=== PATIENT | male | born 1955 | race Caucasian/White ===

== ENCOUNTER 2020-11-21 10:39 | Outpatient (REF) | payer OTHER, SELFPAY ==
[2020-11-21 12:53] LABS: Alanine Aminotransferase 19 U/L (0-40); Albumin Level 3.8 g/dL (3.5-5.0); Alkaline Phosphatase 57 U/L (39-117); Aspartate Amino Transferase 17 U/L (5-37); Bilirubin Direct 0.3 mg/dL (0.0-0.5); Bilirubin Total 0.7 mg/dL (0.0-1.0); Cholesterol 184 mg/dL; Glucose Fasting 96 mg/dL (60-99); HDL Cholesterol 79 mg/dL; LDL Cholesterol Calculated 71 mg/dl; Total Protein 6.7 g/dL (6.5-8.0); Triglycerides 170 mg/dL
[2020-11-21 13:01] LABS: Reflex LDLD? No
[2020-11-21 13:25] LABS: Estimated Average Glucose 100 mg/dL; Hemoglobin A1c % 5.1 %
== END 2020-11-21 10:40 | disposition home or self-care (01) ==
LOC: HO.LNP 10:39
PROVIDERS: Visit Provider Internal Medicine
DX: R73.03 Prediabetes (principal); E78.00 Pure hypercholesterolemia, unspecified
CPT/HCPCS: 80061; 80076; 82947; 83036

== ENCOUNTER 2021-05-21 10:25 | Outpatient (REF) | payer OTHER, SELFPAY ==
[2021-05-21 10:29] LABS: MANUAL DIFF FLAG NO
[2021-05-21 10:56] LABS: Basophils Percent Auto 0.7 % (0-2); Eosinophils Absolute Auto 0.1 X10*3/uL (0.0-0.4); Hematocrit 41.5 % (42-52); Hemoglobin 13.8 g/dl (14.0-18.0); Imm Gran Abs Auto 0.02 X10*3/uL (0.00-0.03); Imm Gran Pct Auto 0.3 % (0.0-0.4); Lymphocytes Absolute Auto 2.3 X10*3/uL (1.2-4.9); Lymphocytes Percent Auto 39.3 % (20-40); Mean Corpuscular HGB Conc 33.3 g/dl (31.0-36.0); Mean Corpuscular Hemoglobin 32.3 pg (27.0-33.0); Mean Corpuscular Volume 97.2 fL (80-98); Mean Platelet Volume 10.3 fL (9.4-12.4); Monocytes Absolute Auto 0.6 X10*3/uL (0.1-1.2); Monocytes Percent Auto 10.8 % (2-11); Neutrophils Absolute Auto 2.8 X10*3/uL (2.0-8.3); Neutrophils Percent Auto 46.9 % (45-73); Platelet Count 197 X10*3/uL (160-400); Red Blood Count 4.27 X10*6/uL (4.60-5.80); Red Cell Distribution Width 12.9 % (11.0-16.0); White Blood Count 5.9 X10*3/uL (4.8-10.8)
[2021-05-21 10:57] LABS: Estimated Average Glucose 94 mg/dL; Hemoglobin A1c % 4.9 %
[2021-05-21 11:04] LABS: Glucose Urine UA NEG (NEG); Leukocyte Esterase Urine NEG (NEG); Nitrite Urine NEG (NEG); PH 5.5 (5.0-8.0); Specific Gravity - Urine 1.025 (1.005-1.025); Urine Blood NEG (NEG); Urine Ketones NEG (NEG); Urine Protein NEG (NEG-TRACE)
[2021-05-21 11:12] LABS: Appearance Urine CLEAR; Color Urine YELLOW
[2021-05-21 11:23] LABS: Alanine Aminotransferase 18 U/L (0-40); Albumin Level 3.7 g/dL (3.5-5.0); Alkaline Phosphatase 58 U/L (39-117); Anion Gap 14 (12-20); Aspartate Amino Transferase 16 U/L (5-37); Bilirubin Total 1.4 mg/dL (0.0-1.0); Blood Urea Nitrogen 19 mg/dL (9-16); Calcium 8.5 mg/dL (8.4-10.2); Carbon Dioxide 25 mmol/L (22-29); Chloride 106 mmol/L (96-108); Cholesterol 184 mg/dL; Estimated Glomerular Filt Rate > 60; Glucose Fasting 103 mg/dL (60-99); HDL Cholesterol 89 mg/dL; LDL Cholesterol Calculated 81 mg/dl; Potassium 4.3 mmol/L (3.3-5.1); Sodium 141 mmol/L (135-145); Total Protein 6.5 g/dL (6.5-8.0); Triglycerides 72 mg/dL
[2021-05-21 11:28] LABS: PSA,Total (Free>4and<10) 1.71 ng/mL (0.00-4.00)
[2021-05-21 11:32] LABS: Reflex LDLD? No
[2021-05-21 12:08] LABS: Creatinine Urine 139.21 mg/dL; Microalbum/Creatinine Ratio Ur 6.4 ug/mg cr
== END 2021-05-21 10:26 | disposition home or self-care (01) ==
LOC: HO.LNP 10:25
PROVIDERS: Visit Provider Internal Medicine
DX: Z00.00 Encounter for general adult medical examination without abnormal findings (principal); Z12.5 Encounter for screening for malignant neoplasm of prostate; I10 Essential (primary) hypertension; E78.00 Pure hypercholesterolemia, unspecified; D72.820 Lymphocytosis (symptomatic); R73.03 Prediabetes
CPT/HCPCS: 80053; 80061; 81003; 82043; 83036; 84153; 85025

== ENCOUNTER 2021-11-16 11:34 | Outpatient (REF) | payer OTHER, SELFPAY ==
[2021-11-16 12:31] LABS: Estimated Average Glucose 100 mg/dL; Hemoglobin A1c % 5.1 %
[2021-11-16 12:46] LABS: Alanine Aminotransferase 19 U/L (0-40); Albumin Level 3.7 g/dL (3.5-5.0); Alkaline Phosphatase 57 U/L (39-117); Aspartate Amino Transferase 18 U/L (5-37); Bilirubin Direct 0.3 mg/dL (0.0-0.5); Bilirubin Total 0.6 mg/dL (0.0-1.0); Cholesterol 188 mg/dL; Glucose Fasting 96 mg/dL (60-99); HDL Cholesterol 84 mg/dL; LDL Cholesterol Calculated 86 mg/dl; Total Protein 6.6 g/dL (6.5-8.0); Triglycerides 90 mg/dL
[2021-11-16 12:57] LABS: Reflex LDLD? No
== END 2021-11-16 11:35 | disposition home or self-care (01) ==
LOC: HO.LNP 11:34
PROVIDERS: Visit Provider Internal Medicine
DX: R73.03 Prediabetes (principal); E78.00 Pure hypercholesterolemia, unspecified
CPT/HCPCS: 80061; 80076; 82947; 83036

== ENCOUNTER 2022-03-20 09:28 | Day surgery (SDC) | payer OTHER, SELFPAY ==
[2022-03-13 15:30] VITALS: BMI 32.3
--- NOTE | 2022-03-19 10:57 | P.CONAN_ITS ---
Documented by User: Anju Nelson NP 03/19/22 10:58 HPI - Anesthesia Eval Consult details Narrative: 66yo M for Colonoscopy [facility] Past Medical History Medical History HLD (hyperlipidemia) HTN (hypertension) Social History Social History Patient Tobacco Use Status: Never used Tobacco Use of substances other than those prescribed or required for medical reasons: No Are you DNR?: No Advance Directives: No Advance Directives Information Provided: Yes Recently lost weight without trying: No Meds Allergies Allergy/AdvReac Type Severity Reaction Status Date / Time No Known Allergies Allergy Unverified 03/17/22 18:53 Home Medications Medication Instructions Recorded Confirmed Last Taken Type atorvastatin 40 mg tablet 1 tab PO DAILY 03/13/22 03/13/22 03/20/22 History valsartan 320 1 tab PO DAILY 03/13/22 03/13/22 03/20/22 History mg-hydrochlorothiazide 25 mg tablet Exam Exam Date and Time: March 19, 2022 1057 Height,Weight and Vital Signs: Height 5 ft 8 in Weight 96.615 kg Assessment and Plan Assessment Anesthesia Assessment: Chart Reviewed Documented by User: Melonie Martinez MD 03/20/22 11:29 [facility] Past Medical History Medical History HLD (hyperlipidemia) HTN (hypertension) Functional capacity: independent ambulation Family History Family history of problems with anesthesia: No Surgical History History of Problems with Anesthesia: No Social History Social History Patient Tobacco Use Status: Never used Tobacco Use of substances other than those prescribed or required for medical reasons: No Are you DNR?: No Advance Directives: No Advance Directives Information Provided: Yes Recently lost weight without trying: No Meds Allergies Allergy/AdvReac Type Severity Reaction Status Date / Time No Known Allergies Allergy Unverified 03/17/22 18:53 Home Medications Medication Instructions Recorded Confirmed Last Taken Type atorvastatin 40 mg tablet 1 tab PO DAILY 03/13/22 03/13/22 03/20/22 History valsartan 320 1 tab PO DAILY 03/13/22 03/13/22 03/20/22 History mg-hydrochlorothiazide 25 mg tablet Exam Airway Mallampati Class: II TM Dist: >3cm Neck ROM: Full Heart: RRR Lungs: CTA Assessment and Plan Final Anesthetic Review Family History of Problems with Anesthesia: No History of Problems with Anesthesia: No ASA Class: II Final Preanesthetic Review: No Changes in Pt Med Stat, Meds/Allgs Chart Reviewed, Consent Obtained/Reviewed and Anes Risks/Benef Reviewed Patient Risk: Low Procedure Risk: Low Anesthetic Plan Anesthetic Plan: MAC: Disposition: Standard PACU
[2022-03-20 09:36] VITALS: BMI 28.7
[2022-03-20 09:44] VITALS: BP 128/74; PULSE 65; RESP 16; TEMP 36.5; O2SAT 98
[2022-03-20] MEDS: Lactated Ringers 1,000 ML 100 ML IVCONT (09:54)
[2022-03-20 11:09] VITALS: BP 102/69; PULSE 61; RESP 16; TEMP 36.2; O2SAT 98
--- NOTE | 2022-03-20 11:09 | PM.OP ---
Brief Operative Note Date of Service: 03/20/22 Pre-op diagnosis: Screening Post-op diagnosis: other (Polyp) Procedure: Colonoscopy to the cecum and TI with cold snare polypectomy Surgeon: Jamie Shre Anesthesia: MAC Was an Survey And Mapping Technician used for this Procedure?: No Estimated blood loss (mL): 2.0 Pathology: other (A. Transverse colon polyp) Condition: stable Disposition: PACU
[2022-03-20 11:24] VITALS: BP 104/56; PULSE 55; RESP 16; TEMP 36.2; O2SAT 99
--- NOTE | 2022-03-20 11:30 | HO.POSTANES ---
Post Anesthesia Evaluation Post Anesthesia Evaluation Vital Signs: Vital Signs Temp Pulse Resp BP Pulse Ox O2 Del Method 03/20/22 11:24 97.1 F 55 16 104/56 L 99 Room Air 03/20/22 11:09 97.1 F 61 16 102/69 98 Room Air 03/20/22 09:44 97.7 F 65 16 128/74 98 Room Air Anesthesia: Monitored Mental Status: Awake Pain Control: Satisfactory Nausea/Vomiting: None Hydration: Adequate Anesthesia-Related Issues: No Anes. Related Issues
--- NOTE | 2022-03-20 11:33 | OP_ITS ---
SURGEON: Jamie Sher MD INDICATIONS: The patient presents for followup of colorectal cancer screening and personal history of tubular adenoma of the colon. Full consent has been obtained from him for this, including risks of bleeding and perforation. PREOPERATIVE DIAGNOSIS: POSTOPERATIVE DIAGNOSIS: PROCEDURE PERFORMED: Colonoscopy to the cecum and terminal ileum with cold snare polypectomy. ESTIMATED BLOOD LOSS: COMPLICATIONS: ANESTHESIA: Monitored anesthesia care. ASSISTANTS: SPECIMENS: PREOPERATIVE DIAGNOSES: Colorectal cancer screening and personal history of tubular adenoma of the colon. POSTOPERATIVE DIAGNOSES: Colorectal cancer screening and personal history of tubular adenoma of the colon, small colon polyp, diverticulosis and internal hemorrhoids. DESCRIPTION OF PROCEDURE: The patient was placed in the left lateral decubitus position. The digital rectal exam revealed no abnormalities. The Olympus video pediatric colonoscope was entered into the rectum and advanced easily to the cecum. Once in the cecum, I did identify normal-appearing cecal pouch with appendiceal orifice and a normal-appearing ileocecal valve. The terminal ileum was cannulated and appeared normal. The scope was withdrawn back in the colon. The entire cecum and ileocecal valve appeared normal. The scope was then slowly withdrawn assessing all mucosal surfaces carefully. Preparation was excellent. In the transverse colon was an approximately 6 mm polyp, which was removed by cold snare polypectomy and recovered by suction. The polypectomy site appeared clean, without any sign of residual polyp nor bleeding. I did not visualize any other polyps, colitis, nor angiodysplasia. There was a mild amount of sigmoid diverticulosis. In the rectum, scope was retroflexed visualizing small internal hemorrhoids, but no other pathology. The rectal mucosa appeared normal. Scope was straightened and withdrawn from the patient. He tolerated the procedure well and was returned to recovery area in stable condition. IMPRESSION: 1. Small colon polyp. 2. Diverticulosis. 3. Internal hemorrhoids. PLAN: The results of the pathology will be checked. I would recommend a repeat colonoscopy in 5 years. He will otherwise see me on a p.r.n. basis. MD YAKELIN Anne/NAT / [phone]
== END 2022-03-20 11:50 | disposition home or self-care (01) ==
PROVIDERS: PCP Internal Medicine; Visit Provider Internal Medicine
PROC: 0DJD8ZZ Inspection of Lower Intestinal Tract, Via Natural or Artificial Opening Endoscopic (ICD-10-PCS; CPT 45378; principal; 2022-03-20 10:30)
DX: Z12.11 Encounter for screening for malignant neoplasm of colon (principal); Z86.010 Personal history of colon polyps; D12.3 Benign neoplasm of transverse colon; K57.30 Diverticulosis of large intestine without perforation or abscess without bleeding; K64.8 Other hemorrhoids; I10 Essential (primary) hypertension; E78.5 Hyperlipidemia, unspecified; Z79.899 Other long term (current) drug therapy
CPT/HCPCS: 45385; 88305

== ENCOUNTER 2022-06-28 11:07 | Outpatient (REF) | payer BC, SELFPAY ==
[2022-06-28 11:12] LABS: MANUAL DIFF FLAG NO
[2022-06-28 11:55] LABS: Basophils Percent Auto 0.6 % (0-2); Eosinophils Absolute Auto 0.1 X10*3/uL (0.0-0.4); Eosinophils Percent Auto 1.7 % (0-4); Hematocrit 41.6 % (42.0-52.0); Hemoglobin 13.7 g/dl (14.0-18.0); Imm Gran Abs Auto 0.02 X10*3/uL (0.00-0.03); Imm Gran Pct Auto 0.4 % (0.0-0.4); Lymphocytes Absolute Auto 2.4 X10*3/uL (1.2-4.9); Lymphocytes Percent Auto 45.3 % (20-40); Mean Corpuscular HGB Conc 32.9 g/dl (31.0-36.0); Mean Corpuscular Hemoglobin 32.7 pg (27.0-33.0); Mean Corpuscular Volume 99.3 fL (80.0-98.0); Mean Platelet Volume 10.2 fL (9.4-12.4); Monocytes Absolute Auto 0.6 X10*3/uL (0.1-1.2); Monocytes Percent Auto 10.9 % (2-11); Neutrophils Absolute Auto 2.2 x10*3/uL (2.0-8.3); Neutrophils Percent Auto 41.1 % (45-73); Platelet Count 217 X10*3/uL (160-400); Red Blood Count 4.19 X10*6/uL (4.60-5.80); Red Cell Distribution Width 12.9 % (11.0-16.0); White Blood Count 5.4 X10*3/uL (4.8-10.8)
[2022-06-28 12:15] LABS: Appearance Urine Clear; Color Urine Yellow; Glucose Urine UA Negative (Negative); Leukocyte Esterase Urine Negative (Negative); Nitrite Urine Negative (Negative); Urine Blood Negative (Negative); Urine Ketones Negative (Negative); Urine Protein Negative (Neg-Trace)
[2022-06-28 12:17] LABS: Alanine Aminotransferase 23 U/L (0-40); Albumin Level 3.6 g/dL (3.5-5.0); Alkaline Phosphatase 59 U/L (39-117); Anion Gap 14 (12-20); Aspartate Amino Transferase 21 U/L (5-37); Bilirubin Total 0.2 mg/dL (0.0-1.0); Blood Urea Nitrogen 17 mg/dL (9-16); Calcium 8.2 mg/dL (8.4-10.2); Carbon Dioxide 27 mmol/L (22-29); Chloride 103 mmol/L (96-108); Cholesterol 183 mg/dL; Estimated Glomerular Filt Rate > 60; Glucose Fasting 85 mg/dL (60-99); HDL Cholesterol 78 mg/dL; LDL Cholesterol Calculated 33 mg/dl; Potassium 3.8 mmol/L (3.3-5.1); Sodium 140 mmol/L (135-145); Total Protein 6.4 g/dL (6.5-8.0); Triglycerides 360 mg/dL
[2022-06-28 12:18] LABS: Bacteria Urine None Seen (None Seen); Hyaline Casts Urine 0-2 /LPF (0-2); RBC Urine 0-2 /HPF (0-2); Squamous Epithelial Cell Urine 0-2 /HPF (0-2); WBC Urine 0-5 /HPF (0-5)
[2022-06-28 12:22] LABS: Estimated Average Glucose 97 mg/dL
[2022-06-28 12:34] LABS: Creatinine Urine 139.93 mg/dL; Microalbum/Creatinine Ratio Ur 5.7 ug/mg cr
== END 2022-06-28 11:08 | disposition home or self-care (01) ==
LOC: HO.LNP 11:07
PROVIDERS: Visit Provider Internal Medicine
DX: Z00.00 Encounter for general adult medical examination without abnormal findings (principal); Z12.5 Encounter for screening for malignant neoplasm of prostate; I10 Essential (primary) hypertension; R73.03 Prediabetes; E78.00 Pure hypercholesterolemia, unspecified; D72.820 Lymphocytosis (symptomatic)
CPT/HCPCS: 80053; 80061; 81001; 82043; 83036; 84153; 85025

== ENCOUNTER 2023-08-01 10:21 | Outpatient (REF) | payer BC, SELFPAY ==
[2023-08-01 10:38] LABS: MANUAL DIFF FLAG NO
[2023-08-01 10:54] LABS: Estimated Average Glucose 94 mg/dL; Hemoglobin A1c % 4.9 % (<6.0)
[2023-08-01 10:55] LABS: Appearance Urine Clear; Basophils Percent Auto 0.5 % (0-2); Color Urine Yellow; Eosinophils Absolute Auto 0.2 X10*3/uL (0.0-0.4); Eosinophils Percent Auto 2.6 % (0-4); Glucose Urine UA Negative (Negative); Hemoglobin 13.8 g/dl (14.0-18.0); Imm Gran Abs Auto 0.01 X10*3/uL (0.00-0.03); Imm Gran Pct Auto 0.2 % (0.0-0.4); Leukocyte Esterase Urine Negative (Negative); Lymphocytes Absolute Auto 2.1 X10*3/uL (1.2-4.9); Lymphocytes Percent Auto 36.2 % (20-40); Mean Corpuscular HGB Conc 32.9 g/dl (31.0-36.0); Mean Corpuscular Volume 97.4 fL (80.0-98.0); Mean Platelet Volume 10.9 fL (9.4-12.4); Monocytes Absolute Auto 0.7 X10*3/uL (0.1-1.2); Monocytes Percent Auto 12.7 % (2-11); Neutrophils Absolute Auto 2.8 x10*3/uL (2.0-8.3); Neutrophils Percent Auto 47.8 % (45-73); Nitrite Urine Negative (Negative); PH 5.5 (5.0-9.0); Platelet Count 203 X10*3/uL (160-400); Red Blood Count 4.31 X10*6/uL (4.60-5.80); Red Cell Distribution Width 12.1 % (11.0-16.0); Specific Gravity - Urine 1.025 (1.005-1.025); Urine Blood Negative (Negative); Urine Ketones Negative (Negative); Urine Protein Negative (Neg-Trace); White Blood Count 5.8 X10*3/uL (4.8-10.8)
[2023-08-01 11:02] LABS: Alanine Aminotransferase 13 U/L (0-40); Albumin Level 3.5 g/dL (3.5-5.0); Alkaline Phosphatase 57 U/L (39-117); Anion Gap 12 (12-20); Aspartate Amino Transferase 15 U/L (5-37); Bilirubin Direct 0.2 mg/dL (0.0-0.5); Bilirubin Total 0.5 mg/dL (0.0-1.0); Blood Urea Nitrogen 15 mg/dL (9-16); Calcium 8.5 mg/dL (8.4-10.2); Carbon Dioxide 28 mmol/L (22-29); Chloride 105 mmol/L (96-108); Estimated Glomerular Filt Rate > 60; Glucose Fasting 92 mg/dL (60-99); Potassium 3.9 mmol/L (3.3-5.1); Sodium 141 mmol/L (135-145); Total Protein 6.7 g/dL (6.5-8.0)
[2023-08-01 11:06] LABS: Cholesterol 180 mg/dL (<200); HDL Cholesterol 85 mg/dL (>40); LDL Cholesterol Calculated 49 mg/dL (<100); Triglycerides 232 mg/dL (<150)
[2023-08-01 11:21] LABS: Prostate Specific Antigen 3.02 ng/mL (<0.05-4.0)
[2023-08-01 11:31] LABS: Creatinine Urine 156.65 mg/dL; Microalbum/Creatinine Ratio Ur 5.1 ug/mg cr (<30)
[2023-08-01 11:39] LABS: Reflex LDLD? No
== END 2023-08-01 10:22 | disposition home or self-care (01) ==
LOC: HO.LNP 10:21
PROVIDERS: Visit Provider Internal Medicine
DX: Z12.5 Encounter for screening for malignant neoplasm of prostate (principal); I10 Essential (primary) hypertension; R73.03 Prediabetes; E78.00 Pure hypercholesterolemia, unspecified; D72.820 Lymphocytosis (symptomatic)
CPT/HCPCS: 80053; 80061; 80076; 81003; 82043; 82570; 83036; 84153; 85025

== ENCOUNTER 2023-08-04 10:51 | Outpatient (REF) | payer BC, SELFPAY | END 2023-08-04 10:52 | disposition home or self-care (01) | LOC: HO.LNP 10:51 | PROVIDERS: Visit Provider Internal Medicine | DX: Z12.5 Encounter for screening for malignant neoplasm of prostate (principal); R97.20 Elevated prostate specific antigen [PSA] | CPT/HCPCS: 84153 ==

== ENCOUNTER 2023-09-01 10:17 | Outpatient (REF) | payer BC, SELFPAY ==
[2023-09-01 11:13] LABS: PSA,Total (Free>4and<10) 4.35 ng/mL (0.00-4.00)
[2023-09-03 06:03] LABS: Free Prostate Spec Ag 0.3 ng/mL; Percent Free Prostate Spec Ag 9 % (calc) (>25); Prostate Specific Ag Total 3.4 ng/mL (< OR = 4.0)
== END 2023-09-01 10:18 | disposition home or self-care (01) ==
LOC: HO.LNP 10:17
PROVIDERS: Visit Provider Internal Medicine
DX: Z12.5 Encounter for screening for malignant neoplasm of prostate (principal); R97.20 Elevated prostate specific antigen [PSA]
CPT/HCPCS: 84153; 84154

== ENCOUNTER 2023-10-06 10:40 | Outpatient (REF) | payer MEDICARE, SELFPAY | END 2023-10-06 10:41 | disposition home or self-care (01) | LOC: HO.LNP 10:40 | PROVIDERS: Visit Provider Internal Medicine | DX: Z12.5 Encounter for screening for malignant neoplasm of prostate (principal); R97.20 Elevated prostate specific antigen [PSA] | CPT/HCPCS: 84153 ==

== ENCOUNTER 2023-10-13 08:38 | Outpatient (AMB) | payer BC, SELFPAY ==
--- NOTE | 2023-10-13 08:40 | A.OFFVIS_ITS ---
Intake Intake Visit Reasons: Elevated PSA Intake Note: NEW Patient presents today to established treatment for Elavated PSA: Results 3.55 ng/mL, 10/06/2023. Meds- None Allergies to Antibiotic- No Known Allergies Blood Thinner- None Post Void Residual: 0 mL Power Superintendent Required: No Accompanied by: Self / Same As Patient Allergies No Known Allergies Allergy (Verified 10/13/23 08:49) Medication List - Last Reconciled 10/13/23 by Daisha Taylor MD atorvastatin 1 tab PO DAILY valsartan-hydrochlorothiazide 320-25 mg 1 tab PO DAILY HPI HPI Comments History of Present Illness Details Reji is a 68 year old male who is here for evaluation for elevated PSA--Results 3.55 ng/mL, 10/06/2023. Past Medical history hypertension, his father is . He denies irritative voiding symptoms. He denies nicotine dependency. I have reviewed prior PSA results 10/06/23 3.55 ng/mL 09/01/23 4.35?H 08/04/23 3.20 ng/mL 06/28/22 1.50 ng/mL I have discussed that elevated PSA may indicate changes in the prostate including benign enlargement, cancer and an inflammatory condition. I have discussed doing a biopsy has risks and that management in early detection of prostate cancer may include active surveillance. Plan: Transrectal Ultrasound guided biopsy of the prostate. Minor procedure room. Discussed risks to include but not limited to pain, blood in stool, urine and semen, septicemia, need to repeat biopsy. Renal US for evaluation of the upper tracts [facility] Medical History (Updated 10/14/23 @ 20:46 by Daisha Taylor MD) HLD (hyperlipidemia) HTN (hypertension) Surgical History (Updated 10/13/23 @ 09:01 by TEETEE Day) No pertinent past surgical history Social History (Updated 10/13/23 @ 08:49 by TEETEE Day) Alcohol intake: current Alcohol intake frequency: holidays/special occasions only Patient Tobacco Use Status: Never used Tobacco Review of Systems Const All systems reviewed & are unremarkable except as noted in HPI and below Reports no additional complaints Eyes Reports no additional complaints ENT Reports no additional complaints Card Denies dyspnea Resp Denies cough and Denies dyspnea GI Reports no additional complaints Musc Reports no additional complaints Skin/Breast Denies rash and Denies unusual bruising Neuro Reports no additional complaints Psych Reports no additional complaints Endo Reports no additional complaints Ronaldo/Lymph Reports no additional complaints Aller/Immun Reports no additional complaints Physical Exam Const General: healthy appearing, no acute distress and well developed Orientation/consciousness: patient oriented x3 HEENT Head: Yes normocephalic and Yes atraumatic Eyes Conjunctivae: conjunctivae normal Neck Neck: Yes normal visual inspection Chest Chest palpation & inspection: normal inspection of the chest Resp Effort & Inspection: normal respiratory effort Cardio Rate: regular rate GI Inspection: Yes normal to inspection Palpation (GI): Soft to palpation Other: Prostate Exam: smooth, mildly enlarged Scrotum: scrotum normal Skin General skin exam: no rashes or lesions noted Neuro General: patient oriented x3 Extrem General: No pedal edema Psych Appearance: grossly normal Affect: normal affect Office Procedures Post Void Residual Post Residual Void Post Void Residual (PVR): 0 [id number]-[id number] Void Residual by ultrasound Results AMB Urinalysis, Automated UA Leukoctes 0 Rosalba/uL Last Edit by TEETEE Day on 10/13/23 08:56 UA Nitrite Negative Last Edit by TEETEE Day on 10/13/23 08:56 UA Urobilinogen 0.2 mg/dL Last Edit by TEETEE Day on 10/13/23 08:5 6 UA Protein 15 mg/dL Last Edit by TEETEE Day on 10/13/23 08:56 UA pH 5.5 Last Edit by TEETEE Day on 10/13/23 08:56 UA Blood 0 Moose/uL Last Edit by TEETEE Day on 10/13/23 08:56 UA Specific Erlanger 1.025 Last Edit by TEETEE Day on 10/13/23 08: 56 UA Ketone Negative Last Edit by TEETEE Day on 10/13/23 08:56 UA Bilirubin 0 mg/dL Last Edit by TEETEE Day on 10/13/23 08:56 UA Glucose 0 mg/dL Last Edit by TEETEE Day on 10/13/23 08:56 Results Reviewed Results Reviewed: Laboratory Last Values Urine pH (Auto) 5.5 10/13/23 08:54 Specific Erlanger (Auto) 1.025 10/13/23 08:54 Urine Protein (Auto) 15 mg/dL 10/13/23 08:54 Glucose (UA)(Auto) 0 mg/dL 10/13/23 08:54 Urine Ketones (Auto) Negative 10/13/23 08:54 Urine Blood (Auto) 0 Moose/uL 10/13/23 08:54 Urine Nitrite (Auto) Negative 10/13/23 08:54 Urine Bilirubin (Auto) 0 mg/dL 10/13/23 08:54 Urine Urobilinogen (Auto) 0.2 mg/dL 10/13/23 08:54 Leukocyte Esterase (Auto) 0 Rosalba/uL 10/13/23 08:54 Assessment & Plan Assessment & Plan (1) BPH (benign prostatic hyperplasia): Code(s): N40.0 - Benign prostatic hyperplasia without lower urinary tract symptoms (2) Elevated PSA: Code(s): R97.20 - Elevated prostate specific antigen [PSA] Plan Transrectal Ultrasound guided biopsy of the prostate. Discussed risks to include but not limited to pain, blood in stool, urine and semen, septicemia, need to repeat biopsy. Renal US for evaluation of the upper tracts Orders: Orders AMB Post Void Residual by ultrasound 10/13/23 N39.8 - Other specified disorders of urinary system AMB Urinalysis Automated 10/13/23 Z13.9 - Encounter for screening, unspecified US retroperitoneal comp 10/13/23 N40.0 - Benign prostatic hyperplasia without lower urinary tract symptoms, R35.1 - Nocturia Medications: New ciprofloxacin HCl start antibiotic one day prior to prostate biopsy 500 mg PO BID 10 tabs 0RF for prostate biopsy diazepam (Valium) take in waiting room 15 min before prostate biopsy 5 mg PO DAILY 1 tab 0RF Patient Instructions: The patient had an opportunity to ask questions regarding treatment plan. All questions were answered. Laboratory studies and physical exam results were discussed and reviewed in detail. No major barriers to understanding were identified. The patient expressed understanding and agreement with the above treatment plan. The patient is aware they should contact our office by phone for worsening of their current condition or the appearance of new symptoms. Compliance is encouraged with any medications and followup testing that is ordered. It is a privilege to be allowed the opportunity to participate in the urologic care of your patient. If you have any questions or concerns regarding treatment for the above conditions please do not hesitate to contact me. The office telephone contact is [phone]. This note is constructed in part using voice recognition software. While every effort has been made to ensure accuracy brusher warp errors may have been included. Yours sincerely, Daisha Taylor MD Coding Level of Care Code New Pt Level 4 (35664) Diagnoses BPH (benign prostatic hyperplasia) N40.0 Elevated PSA R97.20 CPT Codes Post Residual Void - PVR CPT Code: 47606-Gyon Void Residual by ultrasound ([id number])
== END 2023-10-13 09:40 | disposition home or self-care (01) ==
PROVIDERS: PCP Internal Medicine; Visit Provider Urology
DX: N40.0 Benign prostatic hyperplasia without lower urinary tract symptoms (principal); R97.20 Elevated prostate specific antigen [PSA]
CPT/HCPCS: 99204

== ENCOUNTER → 2023-10-13 08:38 | Outpatient (BNVA) | payer MEDICARE, BC, SELFPAY | PROVIDERS: PCP Internal Medicine; Visit Provider Urology | DX: N40.0 Benign prostatic hyperplasia without lower urinary tract symptoms (principal); R97.20 Elevated prostate specific antigen [PSA] | CPT/HCPCS: 51798; 81003; 99202 ==

== ENCOUNTER 2023-11-07 08:26 | Outpatient (REF) | payer BC, SELFPAY | END 2023-11-07 08:27 | disposition home or self-care (01) | LOC: HO.MS 08:26 | PROVIDERS: PCP Internal Medicine; Visit Provider Urology | DX: N40.0 Benign prostatic hyperplasia without lower urinary tract symptoms (principal); Z53.9 Procedure and treatment not carried out, unspecified reason ==

== ENCOUNTER 2023-11-28 14:37 | Outpatient (REF) | payer BC, SELFPAY ==
--- NOTE | ~2023-11-28 | US_ITS ---
EXAMINATION: US RETROPERITONEAL COMPLETE (RENAL) CLINICAL INFORMATION: Benign prostatic hyperplasia without lower urinary tract symptoms. COMPARISON: None available. TECHNIQUE: Real-time imaging of the kidneys and bladder. FINDINGS: RIGHT KIDNEY: 12.0 x 5.0 x 5.5 cm (SAG x AP x TRV). The kidney is normal in size, contour, and echogenicity. Renal cortical thickness is normal. No calculi or focal parenchymal lesions. No hydronephrosis. LEFT KIDNEY: 13.6 x 5.2 x 4.9 cm (SAG x AP x TRV). The kidney is normal in size, contour, and echogenicity. Renal cortical thickness is normal. No calculi or focal parenchymal lesions. No hydronephrosis. BLADDER: Well distended. Bilateral ureteral jets are demonstrated. Prevoid bladder volume is 201.9 mL. Postvoid bladder volume is 8.7 mL. Bladder diverticulum measures 1.3 x 0.8 x 3.4 cm. ADDITIONAL FINDINGS: Prostate gland measures 2.7 x 3.0 x 2.6 cm for a volume of 10.9 mL. US/US retroperitoneal comp IMPRESSION: Bladder diverticulum measures 1.3 x 0.8 x 3.4 cm.
== END 2023-11-28 14:38 | disposition home or self-care (01) ==
LOC: HO.US 14:37
PROVIDERS: PCP Internal Medicine; Visit Provider Urology
DX: N40.0 Benign prostatic hyperplasia without lower urinary tract symptoms (principal); R35.1 Nocturia
CPT/HCPCS: 76770

== ENCOUNTER 2023-12-05 07:30 | Outpatient (REF) | payer BC, SELFPAY ==
[2023-12-05 07:54] VITALS: BP 148/75; PULSE 65; RESP 16; TEMP 36.2; O2SAT 97
[2023-12-05 07:55] VITALS: BMI 29.4
--- NOTE | 2023-12-05 08:00 | W.PM.OPN ---
Operative Note Operative Note Date of Service: 12/05/23 Narrative: PreOperative Diagnosis:? ? Elevated PSA Post Operative Diagnosis:??Elevated PSA Procedure:?1. Transrectal ultrasound guided biopsy of the prostate 12 core 2. Transrectal ultrasound measurement of prostate 3. Transrectal ultrasound guided pudendal nerve block Surgeon:?Dr Daisha Taylor Anesthesia:? Local, Valium 5 mg PO Indications for procedure: Reji is a 68 year old male who is here for evaluation for elevated PSA--Results 3.55 ng/mL, 10/06/2023. Past Medical history hypertension, his father is . He denies irritative voiding symptoms. He denies nicotine dependency. I have discussed that elevated PSA may indicate changes in the prostate including benign enlargement, cancer and an inflammatory condition. I have discussed doing a biopsy has risks and that management in early detection of prostate cancer may include active surveillance. I have reviewed prior PSA results: 10/06/23 3.55 ng/mL 09/01/23 4.35?H 08/04/23 3.20 ng/mL 06/28/22 1.50 ng/mL Procedure: Preoperative antibiotics confirmed. After informed consent was verified the patient was placed on the procedure table in left lateral position. Patient identity confirmed. Safety pause time-out performed. Digital rectal exam performed to dilate rectal sphincter, iodine mixed with lubricant jelly 30 cc placed per rectum. Ultrasound probe was placed per rectum. The prostate was visualized. The prostate was measured width 3.61 cm, height 2.72 cm, length 3.52 cm with a volume of 18.1 mL. An ultrasound guided pudendal nerve block was performed using 10 cc of 1% lidocaine. A 12 core biopsy was performed from the left base, left mid, left apex and right base, mid, apex 2 biopsies from each section. The ultrasound probe was removed and digital palpation of the prostate for 1-2 minutes for hemostasis was performed. The patient tolerated the procedure well. Complications: None
[2023-12-05 08:26] VITALS: BP 148/83; PULSE 68; RESP 16; O2SAT 97
== END 2023-12-05 07:31 | disposition home or self-care (01) ==
LOC: HO.MS 07:30
PROVIDERS: PCP Internal Medicine; Visit Provider Urology
PROC: (CPT 55700; principal; 2023-12-05 08:00)
DX: C61 Malignant neoplasm of prostate (principal); R97.20 Elevated prostate specific antigen [PSA]
CPT/HCPCS: 55700; 76942; 88305; 88344

== ENCOUNTER → 2023-12-05 07:30 | Outpatient (BNV) | payer BC, SELFPAY | PROVIDERS: PCP Internal Medicine; Visit Provider Urology | DX: R97.20 Elevated prostate specific antigen [PSA] (principal) | CPT/HCPCS: 55700; 76942 ==

== ENCOUNTER 2023-12-18 13:51 | Outpatient (AMB) | payer BC, SELFPAY ==
--- NOTE | 2023-12-18 13:55 | A.OFFVIS_ITS ---
Intake Visit Reasons: post op/Prostate biopsy results Intake Note: Patient presents today to via telephone for post op and Prostate Biopsy Results: Meds- None Allergies to Antibiotic- No Known Allergies Blood Thinner- None Record Center Specialist Required: No Accompanied by: Self / Same As Patient Allergies No Known Allergies Allergy (Verified 10/13/23 08:49) HPI Comments Details: 12/18/23--Telehealth follow up, Reji is a 68 y/o male who is s/p prostate biopsy. I have reviewed path results. Belleville score: 7 (3+4) (left mid medial, left apex lateral, left apex medial) 6 (3+3) (left mid lateral) % of pattern 4: 10% Review of chart: 10/13/23--Reji is a 68 year old male who is here for evaluation for elevated PSA--Results 3.55 ng/mL, 10/06/2023. Past Medical history hypertension, his father is . He denies irritative voiding symptoms. He denies nicotine dependency. I have reviewed prior PSA results 10/06/23 -3.55 ng/mL, 09/01/23 - 4.35?H, 08/04/23- 3.20 ng/mL, 06/28/22 -1.50 ng/mL I have discussed that elevated PSA may indicate changes in the prostate including benign enlargement, cancer and an inflammatory condition. I have discussed doing a biopsy has risks and that management in early detection of prostate cancer may include active surveillance. Plan: Discussed active surveillance. MRI in 4 months, monitor PSA. Discussed second opinion will refer to Dr. Yao. [facility] Medical History (Updated 12/18/23 @ 16:12 by Daisha Taylor MD) HLD (hyperlipidemia) HTN (hypertension) Surgical History (Updated 10/13/23 @ 09:01 by TEETEE Day) No pertinent past surgical history Social History (Updated 10/13/23 @ 08:49 by PHILIPP Day Alcohol intake: current Alcohol intake frequency: holidays/special occasions only Patient Tobacco Use Status: Never used Tobacco Review of Systems Const All systems reviewed & are unremarkable except as noted in HPI and below Reports no additional complaints Eyes Reports no additional complaints ENT Reports no additional complaints Card Reports no additional complaints Resp Reports no additional complaints GI Reports no additional complaints Reports as per HPI Musc Reports no additional complaints Skin/Breast Reports system reviewed and no additional complaints, except as documented Neuro Reports no additional complaints Psych Reports no additional complaints Endo Reports no additional complaints Ronaldo/Lymph Reports no additional complaints Aller/Immun Reports no additional complaints Telehealth Telehealth Location of provider rendering services: practice address Location of patient: address on file Patient Identification confirmed using: Name, : Yes Telehealth method: voice only Patient verbally consented to treatment: Yes Patient verbally consented to billing insurance company: Yes Patient informed of any privacy concerns related to visit: Yes Minutes spent on Phone/Video with Pt.: 18 Results Reviewed Results Reviewed: Collected: 12/05/23 Location: [facility] Received: 12/05/23 Diagnosis Prostate, needle core biopsies: A. Left base lateral: Benign prostatic tissue. B. Left base medial: Benign prostatic tissue. C. Left mid lateral: Prostatic adenocarcinoma, Belleville score 6 (3+3), grade group 1, 2 mm, 22% of core. D. Left mid medial: Prostatic adenocarcinoma, Kenyatta score 7 (3+4), grade group 2, 5% pattern 4, 7 mm, 50% of core. E. Left apex lateral: Prostatic adenocarcinoma, Kenyatta score 7 (3+4), grade group 2, 15% pattern 4, 6 mm, 33% of core. F. Left apex medial: Prostatic adenocarcinoma, Belleville score 7 (3+4), grade group 2, 15% pattern 4, 7 mm, 44% of core. G. Right base lateral: Benign prostatic tissue. H. Right base medial: Benign prostatic tissue. I. Right mid lateral: Benign prostatic tissue. J. Right mid medial: Benign prostatic tissue. K. Right apex lateral: Benign prostatic tissue. L. Right apex medial: Benign prostatic tissue. Data synopsis - Prostate needle biopsy Histologic type: Adenocarcinoma, acinar type Histologic grade: Belleville score: 7 (3+4) (left mid medial, left apex lateral, left apex medial) 6 (3+3) (left mid lateral) % of pattern 4: 10% % of pattern 5: 0% Patient: Reji Tucker Age/Sex: 68/M MR#: [id number] Page 1 of 4 Surgical Pathology [id number] Grade group: 2 and 1 Tumor quantitation: Number cores positive: 4 Total number of cores: 13 % of tissue involved: 13% Periprostatic fat inv.: Not identified Seminal vesicle inv.: Not identified Perineural inv.: Not identified Lymphovascular invasion: Not identified Clinical History Assessment & Plan Assessment & Plan (1) Adenocarcinoma of prostate: Code(s): C61 - Malignant neoplasm of prostate Category: Medical Plan Discussed active surveillance. MRI in 4 months, monitor PSA. Discussed second opinion will refer to Dr. Yao. Orders: Orders PSA,Total (Free>4and<10) 3 Months C61 - Malignant neoplasm of prostate MR pelvis w con 4 Months C61 - Malignant neoplasm of prostate Patient Instructions: The patient had an opportunity to ask questions regarding treatment plan. All questions were answered. No major barriers to understanding were identified. The patient expressed understanding and agreement with the above treatment plan. The patient is aware they should contact our office by phone for worsening of their current condition or the appearance of new symptoms. Compliance is encouraged with any medications and followup testing that is ordered. It is a privilege to be allowed the opportunity to participate in the urologic care of your patient. If you have any questions or concerns regarding treatment for the above conditions please do not hesitate to contact me. The office telephone contact is [phone]. This note is constructed in part using voice recognition software. While every effort has been made to ensure accuracy postdoctoral research associate errors may have been included. Yours sincerely, Daisha Taylor MD Coding Level of Care Code Tele Est Pt Level 4 (87796) Diagnoses Adenocarcinoma of prostate C61
== END 2023-12-18 16:11 | disposition home or self-care (01) ==
LOC: HO.HUSH 13:51
PROVIDERS: PCP Internal Medicine; Visit Provider Urology
DX: C61 Malignant neoplasm of prostate (principal)
CPT/HCPCS: 99442

== ENCOUNTER → 2023-12-18 13:51 | Outpatient (BNVA) | payer BC, SELFPAY | PROVIDERS: PCP Internal Medicine; Visit Provider Urology ==

== ENCOUNTER 2024-01-05 10:51 | Outpatient (REF) | payer BC, SELFPAY ==
[2024-01-05 11:44] LABS: PSA,Total (Free>4and<10) 3.84 ng/mL (0.00-4.00)
== END 2024-01-05 10:52 | disposition home or self-care (01) ==
LOC: HO.LNP 10:51
PROVIDERS: Visit Provider Internal Medicine
DX: Z12.5 Encounter for screening for malignant neoplasm of prostate (principal); R97.20 Elevated prostate specific antigen [PSA]
CPT/HCPCS: 84153

== ENCOUNTER 2024-01-27 14:39 | Outpatient (REF) | payer BC, SELFPAY ==
[2024-01-27 14:57] LABS: MANUAL DIFF FLAG NO
[2024-01-27 15:46] LABS: Basophils Percent Auto 0.5 % (0-2); Eosinophils Percent Auto 0.5 % (0-4); Hematocrit 41.8 % (42.0-52.0); Imm Gran Abs Auto 0.02 X10*3/uL (0.00-0.03); Imm Gran Pct Auto 0.3 % (0.0-0.4); Lymphocytes Absolute Auto 2.1 X10*3/uL (1.2-4.9); Lymphocytes Percent Auto 25.7 % (20-40); Mean Corpuscular HGB Conc 33.5 g/dl (31.0-36.0); Mean Corpuscular Hemoglobin 32.6 pg (27.0-33.0); Mean Corpuscular Volume 97.2 fL (80.0-98.0); Mean Platelet Volume 10.2 fL (9.4-12.4); Monocytes Percent Auto 12.4 % (2-11); Neutrophils Absolute Auto 4.9 x10*3/uL (2.0-8.3); Neutrophils Percent Auto 60.6 % (45-73); Platelet Count 228 X10*3/uL (160-400); Red Cell Distribution Width 12.5 % (11.0-16.0)
[2024-01-27 16:20] LABS: Anion Gap 15 (12-20); Blood Urea Nitrogen 21 mg/dL (9-16); Calcium 9.2 mg/dL (8.4-10.2); Carbon Dioxide 26 mmol/L (22-29); Chloride 105 mmol/L (96-108); Estimated Glomerular Filt Rate 60; Glucose Random 107 mg/dL (60-115); Potassium 4.1 mmol/L (3.3-5.1); Sodium 142 mmol/L (135-145)
[2024-01-27 17:46] LABS: Appearance Urine Clear; Color Urine Yellow; Glucose Urine UA Negative (Negative); Leukocyte Esterase Urine Negative (Negative); Nitrite Urine Negative (Negative); PH 5.5 (5.0-9.0); Specific Gravity - Urine 1.025 (1.005-1.025); Urine Blood Negative (Negative); Urine Ketones Trace mg/dL (Negative); Urine Protein Negative (Neg-Trace)
== END 2024-01-27 14:40 | disposition home or self-care (01) ==
LOC: HO.LAB 14:39
PROVIDERS: Physician Assistant Medical; PCP Internal Medicine; Visit Provider Urology
DX: C61 Malignant neoplasm of prostate (principal)
CPT/HCPCS: 36415; 80048; 81003; 85025; 87086

== ENCOUNTER 2024-02-02 11:00 | Outpatient (REF) | payer BC, SELFPAY ==
[2024-02-02 11:26] LABS: Estimated Average Glucose 103 mg/dL; Hemoglobin A1c % 5.2 % (<6.0)
[2024-02-02 11:28] LABS: Alanine Aminotransferase 16 U/L (0-40); Albumin Level 3.6 g/dL (3.5-5.0); Alkaline Phosphatase 63 U/L (39-117); Aspartate Amino Transferase 15 U/L (5-37); Bilirubin Direct 0.3 mg/dL (0.0-0.5); Bilirubin Total 0.8 mg/dL (0.0-1.0); Cholesterol 169 mg/dL (<200); Glucose Fasting 108 mg/dL (60-99); HDL Cholesterol 78 mg/dL (>40); LDL Cholesterol Calculated 70 mg/dL (<100); Triglycerides 107 mg/dL (<150)
[2024-02-02 12:10] LABS: Reflex LDLD? No
== END 2024-02-02 11:01 | disposition home or self-care (01) ==
LOC: HO.LNP 11:00
PROVIDERS: Visit Provider Internal Medicine
DX: R73.03 Prediabetes (principal); E78.00 Pure hypercholesterolemia, unspecified
CPT/HCPCS: 80061; 80076; 82947; 83036

== ENCOUNTER 2024-05-27 10:41 | Outpatient (REF) | payer BC, SELFPAY ==
[2024-05-27 11:33] LABS: PSA,Total (Free>4and<10) < 0.10 ng/mL (0.00-4.00)
== END 2024-05-27 10:42 | disposition home or self-care (01) ==
LOC: HO.LNP 10:41
PROVIDERS: Visit Provider Internal Medicine
DX: R97.20 Elevated prostate specific antigen [PSA] (principal); Z12.5 Encounter for screening for malignant neoplasm of prostate
CPT/HCPCS: 84153

== ENCOUNTER 2024-08-05 11:51 | Outpatient (REF) | payer BC, SELFPAY ==
[2024-08-05 11:59] LABS: MANUAL DIFF FLAG NO
[2024-08-05 12:12] LABS: Appearance Urine Clear; Basophils Percent Auto 0.8 % (0-2); Color Urine Yellow; Eosinophils Absolute Auto 0.1 X10*3/uL (0.0-0.4); Eosinophils Percent Auto 2.1 % (0-4); Glucose Urine UA Negative (Negative); Hematocrit 42.5 % (42.0-52.0); Hemoglobin 14.1 g/dl (14.0-18.0); Imm Gran Abs Auto 0.01 X10*3/uL (0.00-0.03); Imm Gran Pct Auto 0.2 % (0.0-0.4); Leukocyte Esterase Urine Negative (Negative); Lymphocytes Absolute Auto 2.3 X10*3/uL (1.2-4.9); Lymphocytes Percent Auto 44.3 % (20-40); Mean Corpuscular HGB Conc 33.2 g/dl (31.0-36.0); Mean Corpuscular Volume 96.4 fL (80.0-98.0); Mean Platelet Volume 10.6 fL (9.4-12.4); Monocytes Absolute Auto 0.6 X10*3/uL (0.1-1.2); Monocytes Percent Auto 11.2 % (2-11); Neutrophils Absolute Auto 2.2 x10*3/uL (2.0-8.3); Neutrophils Percent Auto 41.4 % (45-73); Nitrite Urine Negative (Negative); PH 5.5 (5.0-9.0); Platelet Count 238 X10*3/uL (160-400); Red Blood Count 4.41 X10*6/uL (4.60-5.80); Red Cell Distribution Width 12.6 % (11.0-16.0); Urine Blood Negative (Negative); Urine Ketones Negative (Negative); Urine Protein Negative (Neg-Trace); White Blood Count 5.3 X10*3/uL (4.8-10.8)
[2024-08-05 12:15] LABS: Bacteria Urine None Seen (None Seen); Hyaline Casts Urine 0-2 /LPF (0-2); RBC Urine 0-2 /HPF (0-2); Squamous Epithelial Cell Urine 0-2 /HPF (0-2); WBC Urine 0-5 /HPF (0-5)
[2024-08-05 12:24] LABS: Estimated Average Glucose 97 mg/dL; Hemoglobin A1C 115.4415 umol/L; Total Hemoglobin (HGBA1C) 3714.3533 umol/L
[2024-08-05 12:30] LABS: Alanine Aminotransferase 20 U/L (0-40); Albumin Level 3.7 g/dL (3.5-5.0); Alkaline Phosphatase 56 U/L (39-117); Anion Gap 13 (12-20); Aspartate Amino Transferase 22 U/L (5-37); Blood Urea Nitrogen 17 mg/dL (9-16); Calcium 8.5 mg/dL (8.4-10.2); Carbon Dioxide 27 mmol/L (22-29); Chloride 105 mmol/L (96-108); Cholesterol 181 mg/dL (<200); Estimated Glomerular Filt Rate > 60; Glucose Fasting 98 mg/dL (60-99); HDL Cholesterol 103 mg/dL (>40); LDL Cholesterol Calculated 65 mg/dL (<100); Potassium 3.9 mmol/L (3.3-5.1); Sodium 141 mmol/L (135-145); Total Protein 6.9 g/dL (6.5-8.0); Triglycerides 65 mg/dL (<150)
[2024-08-05 12:44] LABS: Creatinine Urine 199.66 mg/dL
[2024-08-05 12:49] LABS: PSA,Total (Free>4and<10) < 0.10 ng/mL (0.00-4.00)
== END 2024-08-05 11:52 | disposition home or self-care (01) ==
LOC: HO.LNP 11:51
PROVIDERS: Visit Provider Internal Medicine
DX: Z00.00 Encounter for general adult medical examination without abnormal findings (principal); I10 Essential (primary) hypertension; R73.09 Other abnormal glucose; E78.00 Pure hypercholesterolemia, unspecified; D72.820 Lymphocytosis (symptomatic); R97.20 Elevated prostate specific antigen [PSA]; Z12.5 Encounter for screening for malignant neoplasm of prostate
CPT/HCPCS: 80053; 80061; 81001; 82043; 82570; 83036; 84153; 85025

== ENCOUNTER → 2024-11-29 12:21 | Day surgery (SDC) | payer BC, SELFPAY ==
[2024-09-30 14:05] VITALS: BMI 30.9
--- OUTSIDE RECORDS SUMMARY | 2024-10-01 11:24 | XMS_ITS ---
Author Organization Jonas Evans MD Address [address] [place] [id number] Care Team Providers Care [place] Miner Name Role Phone Jonas Evans Primary Care Provider RESULTS Component Value Reference Range Notes PSA,Total (Free>4and<10) Reviewed date:05/27/2024 12:00:17 PM Interpretation: Performing Lab:[facility], [address] [place] [id number] Notes/Report: PSA,Total (Free>4and<10) < 0.10 0.00-4.00 ng/mL [...] Location Date Provider Diagnosis Jonas Evans MD [address] [place] [phone] 05/27/2024 Jonas Evans Rising PSA level R97.20 ASSESSMENTS Encounter Date Diagnosis Assessment Notes Treatment Notes Treatment Clinical Notes 05/27/2024 Rising PSA level (ICD-10 - R97.20) PLAN OF TREATMENT Next Appt Details Provider Name:Jonasgalina arias, 02/04/2025 07:00:00 AM, [address] [place] [address], [address], [place], [phone], Provider Name:Jonas arias, 02/10/2025 07:45:00 AM, [address] [place] [address], [address], [place], [phone], Provider Name:Jonas arias, 08/12/2025 07:00:00 AM, [address] [place] [address], [address], [place], [phone], Provider Name:Jonas arias, 08/18/2025 08:00:00 AM, [address] [place] [address], [address], [place], [phone],
--- OUTSIDE RECORDS SUMMARY | 2024-10-01 11:24 | XMS_ITS ---
Author Organization Jonas Evans MD Address [address] [place], [place] [id number] Care Team Providers Care Surveying Or Spatial Science Technician Name Role Phone Jonas Evans Primary Care Provider RESULTS Component Value Reference Range Notes Complete Blood Count Auto Di ff Reviewed date:08/05/2024 12:33:38 PM Interpretation: Performing Lab:[facility], [address] [place] [phone] Notes/Report: White Blood Count 5.3 4.8-10.8 X10*3/uL [...] NRBC Abs Auto 0.000 0.0-0.012 X10*3/uL Comprehensive [place]. Panel Fa st Reviewed date:08/05/2024 12:33:18 PM Interpretation: Performing Lab:[address] [phone] Notes/Report: Sodium 141 135-145 mmol/L Potassium 3.9 3.3-5.1 mmol/L Chloride 105 96-108 mmol/L Carbon Dioxide 27 22-29 mmol/L Anion Gap 13 12-20 Blood Urea Nitrogen 17 9-16 mg/dL Creatinine 0.81 0.5-1.4 mg/dL Estimated Glomerular Filt Rate > 60 NOTE: For -Filipino individuals, multiply the result by 1.210. Chronic [...] Panel Reviewed date:08/05/2024 12:33:53 PM Interpretation: Performing Lab:[facility], [address] [place] [phone] Notes/Report: Triglycerides 65 <150 mg/dL Desirable Triglyceride: [...] (Free>4and<10) Reviewed date:08/05/2024 01:13:41 PM Interpretation: Performing Lab:[address] [phone] Notes/Report: PSA,Total (Free>4and<10) < 0.10 0.00-4.00 ng/mL [...] Random Reviewed date:08/05/2024 01:13:32 PM Interpretation: Performing Lab:[facility], [address] [place] [phone] Notes/Report: Creatinine Urine 199.66 Microalbumin Urine 10.0 Microalbum/Creatinine Ratio Ur 5.0 <30 ug/mg cr Albumin/Creatinine Ratio Reference Ranges: Normal: < 30 ug/mg creatinine Microalbuminuria: 30 - 300 ug/mg creatinine Clinical Albuminuria: > 300 ug/mg creatinine Hemoglobin A1c Reviewed date:08/05/2024 12:32:53 PM Interpretation: Performing Lab:[address] [phone] Notes/Report: Hemoglobin A1c % 5.0 <6.0 % [...] average glucose, using the formula of the I2M-Lvkbdvo Average Glucose study (ADAG), Diabetes Care, Vol.31,#8, Apr. 2007 UA ClnCatch+Micro w/rflx Cul t Reviewed date:08/05/2024 12:34:21 PM Interpretation: Performing Lab:[facility], [address] [place] [phone] Notes/Report: Urine, Clean Catch Color Urine Yellow Appearance Urine Clear PH 5.5 5.0-9.0 Glucose Urine UA Negative Negative mg/dL Urine Blood Negative Negative Specific [place] - Urine 1.020 1.005-1.025 Urine Protein Negative [...] Date Provider Diagnosis Jonas Evans MD [address] [facility] [address] [place], [place] [phone] 08/05/2024 Jonas Evans Blood tests for rout ine general physical examination Z00.00 ; Essential hypertension I10 ; Prediabetes R73.09 ; Pure hypercholesterolemia E78.00 ; Lymphocytosis D72.820 and Rising PSA level R97.20 ASSESSMENTS Encounter Date Diagnosis Assessment Notes Treatment Notes Treatment Clinical Notes 08/05/2024 [address] tests for rout ine general physical examination (ICD-10 - Z00.00) 08/05/2024 Essential hypertensi on (ICD-10 - I10) 08/05/2024 Prediabetes (ICD-10 - R73.09) 08/05/2024 Pure hypercholestero lemia (ICD-10 - E78.00) 08/05/2024 Lymphocytosis (ICD-1 0 - D72.820) 08/05/2024 Rising PSA level ( D-10 - R97.20) PLAN OF TREATMENT Next Appt Details Provider Name:Jonas arias, 02/04/2025 07:00:00 AM, [address] [place] [address], [address], [place], [phone], Provider Name:Jonas arias, 02/10/2025 07:45:00 AM, [address] [place] [address], [address], [place], [phone], Provider Name:Jonas arias, 08/12/2025 07:00:00 AM, [address] [place] [address], [address], [place], [phone], Provider Name:Jonas arias, 08/18/2025 08:00:00 AM, [address] [place] [address], [address], [place], [phone],
--- OUTSIDE RECORDS SUMMARY | 2024-10-01 11:25 | XMS_ITS ---
Author Organization [facility] Address [address] [place] [phone] Care Team Providers Care Medical Claims Examiner Name Role Phone Jonas Evans MD Primary Care Provider Jamie Pittman Unavailable [phone] ALLERGIES No Known Allergies REASON FOR VISIT Patient presents today for rectal polyp MEDICATIONS Medication SIG (Take, Route, Frequency, Duration) Notes Start Date End Date Status Atorvastatin Calcium Active Valsartan-hydroCHLOROthiazi de Active IMMUNIZATIONS Vaccine Route Administration Date Status Comme nts Influenza Unknown 06/23/2024 Refused PROBLEMS Problem Type ICD Code Onset Dates Problem Status W/U Status Risk SNOMED Code Notes Problem Rectal polyp (K62.1) Active confirmed Rectal polyp (86128917) Problem Abnormal MRI of the abdomen (R93.5) Active confirmed Imaging of abdomen abnormal (500023802) VITAL SIGNS BMI 30.86 kg/m2 06/23/2024 Blood pressure systolic 000 mm Hg 06/23/20 24 Blood pressure diastolic 00 mm Hg 024 Height 68 in 06/23/2024 Temperature 97.5 degrees Fahrenheit 06/23/20 24 Weight 203 lbs 06/23/2024 Encounters Encounter Location Date Provider Diagnosis [facility] [address] [place] [phone] 06/23/2024 Jamie Sher Rectal polyp K62.1 and Abnormal MRI of the abdomen R93.5 ASSESSMENTS Encounter Date Diagnosis Assessment Notes Treatment Notes Treatment Clinical Notes 06/23/2024 Rectal polyp (ICD-10 - K62.1) 06/23/2024 Abnormal MRI of the abdomen (ICD-10 - R93.5) PLAN OF TREATMENT Future Test Test Name Order Date COLONOSCOPY 06/23/2024 Next Appt Details Follow Up: prn, Reason: Provider Name:Jamie Prado Sher , 11/29/2024 02:30:00 PM, [address] [place] [address], [phone], Progress Notes * Examination Category Sub-Category Detail Notes General Examination GENERAL APPEARANCE: pleasant , well nourished, well developed, in no acute distress HEAD: EYES: sclera non-icteric EARS: NOSE: THROAT: NECK/THYROID: no cervical lymphade nopathy, neck supple HEART: S1, S2 normal CHEST: LUNGS: clear to auscultatio n bilaterally ABDOMEN: normal bowel sounds, no guarding or rigidity, no guarding or rigidity, no masses palpable, soft, nontender, nondistended NEUROLOGIC: alert and oriented SKIN: nonjaundiced, no spi amanda angiomata EXTREMITIES: no edema PERIPHERAL PULSES: BACK: BREASTS: MUSCULOSKELETAL: MALE GENITOURINARY: LYMPH NODES: RECTAL EXAM: FEMALE GENITOURINARY: ORAL CAVITY: mucosa moist
--- OUTSIDE RECORDS SUMMARY | 2024-10-01 11:25 | XMS_ITS | Patient Health Record ---
Author Organization Jonas Evans MD Address [address] [place], [place] [id number] Care Team Providers Care Car Loader Name Role Phone Jonas Evans Primary Care Provider ALLERGIES No Known Allergies RESULTS Component Value Reference Range Notes Hold Green Gel Reviewed date:10/06/2023 12:21:22 PM Interpretation: Performing Lab:[facility], [address] [place] [phone] Notes/Report: Hold Green Gel See Note Specimen held untested for 24 hours; Call to request Chemistry testing. PSA,Total (Free>4and<10) Reviewed date:10/06/2023 02:48:43 PM Interpretation: Performing Lab:[facility], [address] [place] [phone] Notes/Report: PSA,Total (Free>4and<10) 3.55 0.00-4.00 ng/mL A Free PSA was not [...] Prescott Alinity i Chemiluminescent Microparticle Immunoassay (CMIA) US retroperitoneal comp Reviewed date:12/04/2023 12:56:14 PM Interpretation: Performing Lab: Notes/Report: [address] [place] [address] Ultrasound Report Signed Patient: Reji Tucker MR#: [id number] : 1955 Acct:[id number] Age/Sex: 68 / M ADM Date: 11/28/23 Loc: HO.US Attending Dr: Daisha Taylor MD Ordering Physician: Daisha Taylor MD Date of Service: 11/28/23 Procedure(s): US retroperitoneal comp Accession Number(s): [id number] cc: aDisha Taylor MD; Jonas Evans MD EXAMINATION: US RETROPERITONEAL COMPLETE (RENAL) CLINICAL INFORMATION: Benign prostatic hyperplasia without lower urinary tract symptoms. COMPARISON: None available. TECHNIQUE: Real-time imaging of the kidneys and bladder. FINDINGS: RIGHT KIDNEY: 12.0 x 5.0 x 5.5 cm (SAG x AP x TRV). The kidney is normal in size, contour, and echogenicity. Renal cortical thickness is normal. No calculi or focal parenchymal lesions. No hydronephrosis. LEFT KIDNEY: 13.6 x 5.2 x 4.9 cm (SAG x AP x TRV). The kidney is normal in size, contour, and echogenicity. Renal cortical thickness is normal. No calculi or focal parenchymal lesions. No hydronephrosis. BLADDER: Well distended. Bilateral ureteral jets are demonstrated. Prevoid bladder volume is 201.9 mL. Postvoid bladder volume is 8.7 mL. Bladder diverticulum measures 1.3 x 0.8 x 3.4 cm. ADDITIONAL FINDINGS: Prostate gland measures 2.7 x 3.0 x 2.6 cm for a volume of 10.9 mL. US/US retroperitoneal comp IMPRESSION: Bladder diverticulum measures 1.3 x 0.8 x 3.4 cm. Dictated By: Marilu Burr MD Signed By: <Electronically signed by Marilu Burr MD in OV> 12/03/231958 DD/ 1518 TD/TT: Porter Luggage: Pathology Reviewed date:12/11/2023 12:20:56 PM Interpretation: Performing Lab:[facility], [address] [place] [phone] Notes/Report: Hold Green Gel Reviewed date:01/06/2024 02:17:39 PM Interpretation: Performing Lab:[facility], [address] [place] [phone] Notes/Report: Hold Green Gel See Note Specimen held untested for 24 hours; Call to request Chemistry testing. PSA,Total (Free>4and<10) Reviewed date:01/06/2024 02:24:56 PM Interpretation: Performing Lab:[facility], [address] [place] [phone] Notes/Report: PSA,Total (Free>4and<10) 3.84 0.00-4.00 ng/mL A Free PSA was not [...] Prescott Alinity i Chemiluminescent Microparticle Immunoassay (CMIA) Rito Bradford Reviewed date:02/02/2024 12:36:38 PM Interpretation: Performing Lab:[facility], [address] [place] [phone] Notes/Report: Rito Gold See Note Specimen held untested for 24 hours; Call to request Chemistry testing. Liver Panel Reviewed date:02/02/2024 12:30:31 PM Interpretation: Performing Lab:[facility], [address] [place] [phone] Notes/Report: Bilirubin Total 0.8 0.0-1.0 mg/dL Bilirubin Direct 0.3 0.0-0.5 mg/dL Aspartate Amino Transferase 15 5-37 U/L Alanine Aminotransferase 16 0-40 U/L Total Protein 7.0 6.5-8.0 g/dL Albumin Level 3.6 3.5-5.0 g/dL Alkaline Phosphatase 63 39-117 U/L Glucose Fasting Reviewed date:02/02/2024 12:17:36 PM Interpretation: Performing Lab:[facility], [address] [place] [phone] Notes/Report: Glucose Fasting 108 60-99 mg/dL A fasting glucose from 100-125 mg/dl is considered impaired (pre-diabetes). Lipid Panel with Reflex Reviewed date:02/02/2024 12:39:56 PM Interpretation: Performing Lab:[facility], [address] [place] [phone] Notes/Report: Triglycerides 107 <150 mg/dL Desirable Triglyceride: less than 150 mg/dL Borderline High Triglyceride 150-199 mg/dL High Triglyceride: 200-499 mg/dL Very High Triglyceride: greater than or equal to 5OO mg/dL Cholesterol 169 <200 mg/dL Desirable Cholesterol: less than 200 mg/dL Borderline High Cholesterol: 200-239 mg/dL High Cholesterol: greater than 239 mg/dL LDL Cholesterol Calculated 70 <100 mg/dL Desirable LDL: less than 100 mg/dL Near Optimal/Above Optimal LDL: 110-129 mg/dL Borderline High LDL: 130-159 mg/dL High LDL: 160-189 mg/dL Very High LDL: greater than or equal to 190 mg/dL HDL Cholesterol 78 >40 mg/dL Desirable HDL: greater than 40 mg/dL Note: This HDL assay may give artificially low results in patients with liver disease. Hemoglobin A1c Reviewed date:02/02/2024 12:30:23 PM Interpretation: Performing Lab:[facility], [address] [place] [phone] Notes/Report: Hemoglobin A1c % 5.2 <6.0 % Hemoglobin A1C Reference Range Adults: 4.8 - 6.0 % Non diabetic: < 6.0 % Goal: < 7.0 % Additional Action Suggested: > 8.0 % Note: Hemoglobin A1c results are invalid for patients with abnormal amounts of HbF. Blood transfusions may impact the HbA1c concentration in the patient sample. Estimated Average Glucose 103 eAG = Estimated average glucose which is %A1C expressed as average glucose, using the formula of the R0Z-Lpwrtrb Average Glucose study (ADAG), Diabetes Care, Vol.31,#8, Apr. 2007 Rito Emanuel Reviewed date:05/27/2024 12:27:50 PM Interpretation: Performing Lab:[facility], [address] [place] [phone] Notes/Report: Hold Green Gel See Note Specimen held untested for 24 hours; Call to request Chemistry testing. PSA,Total (Free>4and<10) Reviewed date:05/27/2024 12:00:17 PM Interpretation: Performing Lab:[facility], [address] [place] [phone] Notes/Report: PSA,Total (Free>4and<10) < 0.10 0.00-4.00 ng/mL [...] Prescott Alinity i Chemiluminescent Microparticle Immunoassay (CMIA) Complete Blood Count Auto Di ff Reviewed date:08/05/2024 12:33:38 PM Interpretation: Performing Lab:[facility], [address] [place] [phone] Notes/Report: White Blood Count 5.3 4.8-10.8 X10*3/uL [...] NRBC Abs Auto 0.000 0.0-0.012 X10*3/uL Comprehensive [place]. Panel Fa Reviewed date:08/05/2024 12:33:18 PM Interpretation: Performing Lab:[facility], [address] [place] [phone] Notes/Report: Sodium 141 135-145 mmol/L Potassium 3.9 3.3-5.1 mmol/L Chloride 105 96-108 mmol/L Carbon Dioxide 27 22-29 mmol/L Anion Gap 13 12-20 Blood Urea Nitrogen 17 9-16 mg/dL Creatinine 0.81 0.5-1.4 mg/dL Estimated Glomerular Filt Rate > 60 NOTE: For -Greek individuals, multiply the result by 1.210. Chronic [...] Panel Reviewed date:08/05/2024 12:33:53 PM Interpretation: Performing Lab:[facility], [address] [place] [phone] Notes/Report: Triglycerides 65 <150 mg/dL Desirable Triglyceride: [...] (Free>4and<10) Reviewed date:08/05/2024 01:13:41 PM Interpretation: Performing Lab:[address] [phone] Notes/Report: PSA,Total (Free>4and<10) < 0.10 0.00-4.00 ng/mL [...] Random Reviewed date:08/05/2024 01:13:32 PM Interpretation: Performing Lab:[facility], [address] [place] [phone] Notes/Report: Creatinine Urine 199.66 Microalbumin Urine 10.0 Microalbum/Creatinine Ratio Ur 5.0 <30 ug/mg cr Albumin/Creatinine Ratio Reference Ranges: Normal: < 30 ug/mg creatinine Microalbuminuria: 30 - 300 ug/mg creatinine Clinical Albuminuria: > 300 ug/mg creatinine Hemoglobin A1c Reviewed date:08/05/2024 12:32:53 PM Interpretation: Performing Lab:[facility], [address] [place] [phone] Notes/Report: Hemoglobin A1c % 5.0 <6.0 % [...] average glucose, using the formula of the C3E-Obmwihh Average Glucose study (ADAG), Diabetes Care, Vol.31,#8, 2007 UA ClnCatch+Micro w/rflx Cul t Reviewed date:08/05/2024 12:34:21 PM Interpretation: Performing Lab:[facility], [address] [place] [phone] Notes/Report: Urine, Clean Catch Color Urine Yellow Appearance Urine Clear PH 5.5 5.0-9.0 Glucose Urine UA Negative Negative mg/dL Urine Blood Negative Negative Specific [place] - Urine 1.020 1.005-1.025 Urine Protein Negative Neg-Trace mg/dL Urine Ketones Negative Negative mg/dL Nitrite Urine Negative Negative Leukocyte Esterase Urine Negative Negative RBC Urine 0-2 0-2 /HPF WBC Urine 0-5 0-5 /HPF Squamous Epithelial Cell Urine 0-2 0-2 /HPF Bacteria Urine None Seen None Seen Hyaline Casts Urine 0-2 0-2 /LPF REASON FOR REFERRAL Reason polyp rectum ins re ferral needed Diagnosis 1 Polyp of colon (K63. 5) Referral Organization Jonas Evans MD Referring Provider First Name Jonas Referring Provider Last Name Nathan Referring Provider Speciality Internal M edicine Referred Provider Jamie Sher Referred Provider Specialty Gastroentero logy General Notes Carine Lopez 01:14:40 PM EDT > info faxed , Carine Lopez 04/19/2024 11:49:22 AM EDT > info maled to patient Referral Priority Routine Referral Appointment Date 06/23/2024 MEDICATIONS Medication SIG (Take, Route, Frequency, Duration) Notes Start Date End Date Status Valsartan-hydroCHLOROthiazi de 320-25 MG TAKE 1 TABLET BY MOUTH EVERY DAY Active Atorvastatin Calcium 40 MG TAKE 1 TABLET BY MOUTH EVERY DAY for 90 Active IMMUNIZATIONS Vaccine Route Administration Date Status Comme nts SARS-COV-2 Moderna Unknown 01/11/2021 Administered SARS-COV-2 Moderna Unknown 12/11/2020 Administered DECLINED, FLU Unknown 06/17/2014 Refused Flu Vaccine Unknown 06/26/2015 Refused Flu Vaccine Unknown 07/02/2016 Refused Fluarix Quadrivalent Unknown 08/04/2017 Refused PPSV23 (Pnemovax) Unknown 08/11/2017 Refused Fluarix Quadrivalent Unknown 08/24/2018 Refused PPSV23 (Pnemovax) Unknown 03/05/2019 Refused TDaP Unknown 03/05/2019 Refused Fluarix Quadrivalent Unknown 09/13/2019 Refused Fluarix Quadrivalent Unknown 05/22/2020 Refused Fluarix Quadrivalent Unknown 06/28/2022 Refused Fluarix Quadrivalent Unknown 07/02/2022 Refused Fluarix Quadrivalent Unknown 08/01/2023 Refused Fluarix Quadrivalent - 150 Unknown 08/12/2024 Refused SOCIAL HISTORY Tobacco Use: Social History Observation Description Date Details (start date - stop date) Never Smoker NA - NA Sex Assigned At : Social History Observation Description Sex Assigned At Unknown Tobacco Use/Smoking Question Answer Notes Patient is [...] Never (0 point) Points 3 Interpretation Negative PROBLEMS Problem Type ICD Code Onset Dates Problem Status W/U Status Risk SNOMED Code Notes Problem Lymphocytosis (D72.820) Active confirmed 99619097 Problem Tubular adenoma of colon (D12.6) Active confirmed 278413853 Problem Essential hypertensi on (I10) Active confirmed 10650557 Problem Prediabetes (R73.09) Active confirmed 9 708889 Problem RBBB (I45.10) Active confirmed 54859239 Problem History of prostate cancer (Z85.46) Active confirmed 016950959 Problem Rising PSA level (R97.20) Active confirmed 358342311 Problem Pure hypercholesterolemia (E78.00) Active confirmed 992831156 VITAL SIGNS Blood pressure diastolic 60 mm Hg 08/12/2024 saundra ght is up 12 pounds since 02-09-24 Height 69.5 in 08/12/2024 weight is up 12 pounds since 02-09-24 Blood pressure systolic 114 mm Hg 08/12/2024 weig ht is up 12 pounds since 02-09-24 Weight 210 lbs 08/12/2024 weight is up 12 pounds since 02-09-24 BMI 30.56 kg/m2 08/12/2024 weight is up 12 pounds since 02-09-24 Encounters Encounter Location Date Provider Diagnosis Jonas Evans MD [address] [place] [id number] 08/12/2024 Jonas Evans History of prostate cancer Z85.46 ; Annual physical exam Z00.00 ; Essential hypertension I10 ; Prediabetes R73.09 ; Pure hypercholesterolemia E78.00 ; Colon cancer screening Z12.11 and Depression screening Z13.31 Jonas Evans MD [address] [place] [id number] 02/02/2024 Jonas Evans Prediabetes R73.09 a nd Pure hypercholesterolemia E78.00 Jonas Evans MD [address] [place] [id number] 08/05/2024 Jonas Evans Blood tests for rout ine general physical examination Z00.00 ; Essential hypertension I10 ; Prediabetes R73.09 ; Pure hypercholesterolemia E78.00 ; Lymphocytosis D72.820 and Rising PSA level R97.20 Jonas Evans MD [address] [place] [id number] 10/06/2023 Jonas Evans Rising PSA level R97 .20 Jonas Evans MD [address] [place] [id number] 01/05/2024 Jonas Evans Rising PSA level R97 .20 Jonas Evans MD [address] [place] [id number] 05/27/2024 Jonas Evans Rising PSA level R97 .20 Jonas Evans MD [address] [place] [id number] 02/09/2024 Jonas Evans Encounter for preprocedural cardiovascular examination Z01.810 ; Essential hypertension I10 and Prediabetes R73.09 Jonas Evans MD [address] [place] [id number] 01/01/2024 Jonas Evans MD [address] [facility] [id number] 01/20/2024 Jonas Evans ASSESSMENTS Encounter Date Diagnosis Assessment Notes Treatment Notes Treatment Clinical Notes 08/12/2024 Annual physical exam (ICD-10 - Z00.00) labs reviewed and discussed with patient 08/12/2024 History of prostate cancer (ICD-10 - Z85.46) doing great after surgery 02/02/2024 Prediabetes (ICD-10 - R73.09) 02/02/2024 Pure hypercholesterolemia (ICD-10 - E78.00) 08/05/2024 Essential hypertensi on (ICD-10 - I10) 08/05/2024 Blood tests for rout ine general physical examination (ICD-10 - Z00.00) 10/06/2023 Rising PSA level (IC D-10 - R97.20) 01/05/2024 Rising PSA level (IC D-10 - R97.20) 05/27/2024 Rising PSA level (IC D-10 - R97.20) 02/09/2024 Encounter for preprocedural cardiovascular examination (ICD-10 - Z01.810) ecg with RBBB unchanged from previous ecg. low risk patient. no need for any further testing prior to the upcoming surgery 02/09/2024 Essential hypertensi on (ICD-10 - I10) bp running on the low side but asymptomatic. will hold antihypertensive prior to surgery 08/12/2024 Essential hypertensi on (ICD-10 - I10) well controlled, will continue current regiment 08/05/2024 Prediabetes (ICD-10 - R73.09) 02/09/2024 Prediabetes (ICD-10 - R73.09) stable, no need for medication at this time 08/12/2024 Prediabetes (ICD-10 - R73.09) stable, no need for medication at this time 08/05/2024 Pure hypercholesterolemia (ICD-10 - E78.00) 08/12/2024 Pure hypercholesterolemia (ICD-10 - E78.00) stable, will contiue current regiment 08/05/2024 Lymphocytosis (ICD-1 0 - D72.820) 08/12/2024 Colon cancer screeni ng (ICD-10 - Z12.11) guaiac negative 08/05/2024 Rising PSA level (IC D-10 - R97.20) 08/12/2024 Depression screening (ICD-10 - Z13.31) negative screen PLAN OF TREATMENT Pending Test Test Name Order Date Electrocardiogram (EKG) 02/09/2024 Electrocardiogram (EKG) 01/11/2016 Electrocardiogram (EKG) 02/07/2017 Electrocardiogram (EKG) 02/19/2018 Electrocardiogram (EKG) 03/05/2019 MRA BRAIN NO CONTRAST 03/05/2019 Next Appt Details Provider Name:Jonas nunezr, 02/04/2025 07:00:00 AM, [address] [place] [address], [address], [phone], Provider Name:Jonas Ramsay ier, 02/10/2025 07:45:00 AM, [address] [place] [address], [address], [phone], Provider Name:Jonas nunezr, 08/12/2025 07:00:00 AM, [address] [place] [address], [address], [phone], Provider Name:Jonas nunezr, 08/18/2025 08:00:00 AM, [address] [place] [address], [address], [phone], Insurance Providers Payer Name Payer Address Payer Phone Subscriber Number Group Number Insured Name Patient Relationship to Insured Coverage Start Date Coverage End Date [employer] [address] [place], [place] [id number] [phone] [id number] Reji Tucker Self - patient is the insured MEDICAL (GENERAL) HISTORY Medical History History ICD Code 10/30/12 - refused flu shot discussed colonoscopy schedu led 2014; colonoscopy 12/27/15 - repeat 5 yrs (Dr. Sher)(2020) colonoscopy 2021 repeat in 5 years: 03/20/22 colonoscopy repeat 5 yrs ( 2026) Lymphocytosis Xanthelasma of eyelid
--- OUTSIDE RECORDS SUMMARY | 2024-10-01 11:25 | XMS_ITS ---
Author Organization [facility] Address [address] [place] [phone] Care Team Providers Care Supervisor Real Estate Office Name Role Phone Nathan TURPIN, Jonas Primary Care Provider Jamie Pittman Unavailable [phone] REASON FOR VISIT reschedule Encounters Encounter Location Date Provider Diagnosis [facility] [address] [place] [phone] 10/01/2024 Jamie Sher PLAN OF TREATMENT Next Appt Details Provider Name:Jamie Sher , 11/29/2024 02:30:00 PM, [address] [place] [address] , [place], [place], [phone],
--- OUTSIDE RECORDS SUMMARY | 2024-10-01 11:25 | XMS_ITS | Patient Health Record ---
Author Organization [facility] Address [address] [place] [address] Care Team Providers Care Manager Vehicle Name Role Phone Jonas Morse MD Primary Care Provider Jamie Pittman Unavailable [phone] ALLERGIES No Known Allergies REASON FOR REFERRAL Referring Provider First Name Jonas Referring Provider Last Name Nathan Referring Provider Speciality Internal M edicine Referred Organization [facility] Referred Provider Jamie Bell Referred Address [address] [facility],[address],[place], [place],[address],[place] Referred Provider Specialty Gastroentero logy General Notes Una Agustin 024 03:34:19 PM EDT > REQUESTED AN O BLUE REFERRAL FROM DR MORSE'S OFFICE FOR VISIT WITH DR BELL ON 06-23-2024 EXT [phone] Referral Priority Routine MEDICATIONS Medication SIG (Take, Route, Frequency, Duration) Notes Start Date End Date Status Atorvastatin Calcium Active Valsartan-hydroCHLOROthiazi de Active IMMUNIZATIONS Vaccine Route Administration Date Status Comme nts Influenza Unknown 02/20/2022 Refused Influenza Unknown 06/23/2024 Refused SOCIAL HISTORY Sex Assigned At : Social History Observation Description Sex Assigned At Unknown PROBLEMS Problem Type ICD Code Onset Dates Problem Status W/U Status Risk SNOMED Code Notes Problem Encounter for screening for malignant neoplasm of colon (Z12.11) Active confirmed 411739743 Problem Encounter for screening for malignant neoplasm of rectum (Z12.12) Active confirmed Screening fo r malignant neoplasm of rectum (402905482) Problem Preprocedural examination (Z01.818) Active confirmed 61056097 Problem History of adenomatous polyp of colon (Z86.010) Active confirmed History of adenomatous polyp of colon (836522849) Problem Diverticulosis of colon (K57.30) Active confirmed Diverticulosi s of colon (574020446) Problem Rectal polyp (K62.1) Active confirmed Rectal polyp (99857664) Problem Abnormal MRI of the abdomen (R93.5) Active confirmed Imaging of abdomen abnormal (226647474) VITAL SIGNS Temperature 97.5 degrees Fahrenheit 06/23/2024 Blood pressure diastolic 00 mm Hg 06/23/2024 Height 68 in 06/23/2024 Blood pressure systolic 000 mm Hg 06/23/2024 Weight 203 lbs 06/23/2024 BMI 30.86 kg/m2 06/23/2024 Encounters Encounter Location Date Provider Diagnosis [facility] [address] [place] [address] 06/23/2024 Jamie Bell Rectal polyp K62.1 and Abnormal MRI of the abdomen R93.5 [facility] [address] [place] [address] 10/01/2024 Jamie Bell ASSESSMENTS Encounter Date Diagnosis Assessment Notes Treatment Notes Treatment Clinical Notes 06/23/2024 Rectal polyp (ICD-10 - K62.1) 06/23/2024 Abnormal MRI of the abdomen (ICD-10 - R93.5) PLAN OF TREATMENT Future Test Test Name Order Date COLONOSCOPY 10/19/2015 COLONOSCOPY 02/20/2022 COLONOSCOPY 06/23/2024 Next Appt Details Provider Name:Jamie Bell , 11/29/2024 02:30:00 PM, [address] [place] [address] , [place], [place], [phone], Insurance Providers Payer Name Payer Address Payer Phone Subscriber Number Group Number Insured Name Patient Relationship to Insured Coverage Start Date Coverage End Date [facility] [employer]AL CLAIMS [address] [place] [address] [id number] BARRY FRANCO Self - patient is the insured MEDICAL (GENERAL) HISTORY Medical History History ICD Code Denies LA,DM,CVA,Lung disease,renal dise ase Hypertension Hyperlipidemia Screening colonoscopy 11/2015 with 2 tubu lar adenomas removed Screening colonoscopy in February of 2022 wi th a single tubular adenoma removed Prostate cancer in February of 2024 with alvin oral as below Surgical History Surgery Date(Month/Year) Prostatectomy for cancer in February of 2024 at [facility]
--- NOTE | 2024-11-26 09:31 | P.CONAN_ITS ---
Documented by User: Anju Nelson NP 11/26/24 09:31 HPI - Anesthesia Eval Consult details Narrative: 69yo M for Colonoscopy PMFSH Active Problems Active Problems: All Active Problems Adenocarcinoma of prostate (Acute) Elevated PSA (Acute) Nocturia (Acute) BPH (benign prostatic hyperplasia) (Acute) Past Medical History Medical History BPH (benign prostatic hyperplasia) Prostate cancer HLD (hyperlipidemia) HTN (hypertension) Family History Family history of problems with anesthesia: No Surgical History Surgical History Hx of prostatectomy Hx of prostate biopsy H/O colonoscopy History of Problems with Anesthesia: No Social History Social History Household Members: Spouse Are you a primary primary care nurse practitioner to a significant other at home: No Do you presently have visiting nurse or other home services: No Alcohol intake: current Alcohol intake frequency: holidays/special occasions only Patient Tobacco Use Status: Never used Tobacco Use of substances other than those prescribed or required for medical reasons: No Have you been hit, kicked, punched, or otherwise hurt by someone within the past year? If so, by whom?: No Are you DNR?: No Advance Directives: No Advance Directives Information Provided: No Advance Directives on File: No Recently lost weight without trying: No How much weight loss: Not applicable Eating poorly because of decreased appetite: No Nutrition screen score: 0 Poor oral hygiene: Yes (missing teeth) Meds Allergies Allergy/AdvReac Type Severity Reaction Status Date / Time No Known Allergies Allergy Verified 11/29/24 12:53 Home Medications ?Medication ?Instructions ?Recorded ?Confirmed ?Last Taken ?Type atorvastatin 40 mg tablet 1 tab PO DAILY 03/13/22 11/29/24 11/29/24 History valsartan 320 1 tab PO DAILY 03/13/22 11/29/24 03/20/22 History mg-hydrochlorothiazide 25 mg tablet Exam Height,Weight and Vital Signs: Height 5 ft 8 in Weight 92.079 kg Assessment and Plan Assessment Anesthesia Assessment: Chart Reviewed Final Anesthetic Review Family History of Problems with Anesthesia: No History of Problems with Anesthesia: No Documented by User: Rachel Cartagena MD 11/29/24 15:17 PMFSH Past Medical History Medical History BPH (benign prostatic hyperplasia) Prostate cancer HLD (hyperlipidemia) HTN (hypertension) Family History Family history of problems with anesthesia: No Surgical History Surgical History Hx of prostatectomy Hx of prostate biopsy H/O colonoscopy History of Problems with Anesthesia: No Social History Social History Household Members: Spouse Are you a primary primary care nurse practitioner to a significant other at home: No Do you presently have visiting nurse or other home services: No Alcohol intake: current Alcohol intake frequency: holidays/special occasions only Patient Tobacco Use Status: Never used Tobacco Use of substances other than those prescribed or required for medical reasons: No Have you been hit, kicked, punched, or otherwise hurt by someone within the past year? If so, by whom?: No Are you DNR?: No Advance Directives: No Advance Directives Information Provided: No Advance Directives on File: No Recently lost weight without trying: No How much weight loss: Not applicable Eating poorly because of decreased appetite: No Nutrition screen score: 0 Poor oral hygiene: Yes (missing teeth) Meds Allergies Allergy/AdvReac Type Severity Reaction Status Date / Time No Known Allergies Allergy Verified 11/29/24 12:53 Home Medications ?Medication ?Instructions ?Recorded ?Confirmed ?Last Taken ?Type atorvastatin 40 mg tablet 1 tab PO DAILY 03/13/22 11/29/24 11/29/24 History valsartan 320 1 tab PO DAILY 03/13/22 11/29/24 03/20/22 History mg-hydrochlorothiazide 25 mg tablet Exam Height,Weight and Vital Signs: Height 5 ft 8 in Weight 92.079 kg Vital Signs Temp Pulse Resp BP Pulse Ox O2 Del Method 11/29/24 12:54 97.8 F 53 16 156/68 H 99 Room Air Airway Mallampati Class: II TM Dist: >3cm Neck ROM: Full Loose/Missing/Broken Teeth: Yes (Missing some teeth. Denies broken or loose teeth) Heart: RRR Lungs: CTAB Assessment and Plan Assessment Anesthesia Assessment: Anesthesia Plan Discussed and Chart Reviewed Final Anesthetic Review Family History of Problems with Anesthesia: No History of Problems with Anesthesia: No NPO: Yes ASA Class: II Final Preanesthetic Review: No Changes in Pt Med Stat, Meds/Allgs Chart Reviewed, Consent Obtained/Reviewed and Anes Risks/Benef Reviewed Patient Risk: Low Procedure Risk: Low Assessment/Block/Sedation in SS: Assess/Block/Sedation-SS Anesthetic Plan Anesthetic Plan: TIVA Disposition: Standard PACU
[2024-11-29 12:54] VITALS: BP 156/68; PULSE 53; RESP 16; TEMP 36.6; O2SAT 99; BMI 30.7
[2024-11-29] MEDS: Lactated Ringers 1,000 ML 100 ML IVCONT (13:01)
[2024-11-29 15:42] VITALS: BP 104/53; PULSE 53; RESP 16; TEMP 36.6; O2SAT 97
--- NOTE | 2024-11-29 15:42 | PM.OP ---
Brief Operative Note Date of Service: 11/29/24 Pre-op diagnosis: Abnormal MRI of rectum Post-op diagnosis: other (Diverticulosis) Procedure: Colonosocpy to the cecum and TI Surgeon: Jamie Sher MD Anesthesia: MAC Was an Quality Process Engineer used for this Procedure?: No Estimated blood loss (mL): 0 Pathology: none sent Condition: stable Disposition: PACU
[2024-11-29 15:45] VITALS: BP 111/52; PULSE 55; RESP 16; O2SAT 98
[2024-11-29 16:00] VITALS: BP 147/62; PULSE 55; RESP 16; O2SAT 98
[2024-11-29 16:11] VITALS: BP 147/87; PULSE 50; RESP 16; TEMP 36.6; O2SAT 98
--- NOTE | 2024-11-30 00:22 | OP_ITS ---
DATE OF SERVICE: 11/29/2024 SURGEON: Jamie Sher MD INDICATIONS: The patient presents for evaluation of personal history of tubular adenoma of the colon and abnormal MRI of rectum with suspicion of a rectal polyp. Full consent has been obtained from him for this, including risks of bleeding and perforation. PREOPERATIVE DIAGNOSIS: POSTOPERATIVE DIAGNOSIS: PROCEDURE PERFORMED: Colonoscopy to the cecum and terminal ileum. ESTIMATED BLOOD LOSS: COMPLICATIONS: ANESTHESIA: Medication used, monitored anesthesia care. ASSISTANTS: SPECIMENS: PREOPERATIVE DIAGNOSES: Personal history of tubular adenoma of the colon and abnormal MRI of rectum with suspicion of rectal polyp. POSTOPERATIVE DIAGNOSES: Personal history of tubular adenoma of the colon and abnormal MRI of rectum with suspicion of rectal polyp, diverticulosis, and internal hemorrhoids. DESCRIPTION OF PROCEDURE: The patient was placed in the left lateral decubitus position. The digital rectal exam revealed no abnormalities. The Olympus video pediatric colonoscope was entered into the rectum and advanced easily to the cecum. Once in the cecum, I did identify normal-appearing cecal pouch with appendiceal orifice and a normal-appearing ileocecal valve. The terminal ileum was cannulated and appeared normal. The scope was withdrawn back in the colon. The entire cecum and ileocecal valve appeared normal. The scope was slowly withdrawn assessing all mucosal surfaces carefully. Preparation was excellent. I did not visualize any sign of polyps, colitis, nor angiodysplasia. There was a mild amount of sigmoid diverticulosis. The rectum was well visualized in both the forward viewing and retroflexed positions, and I did not visualize any sign of polyp nor mucosal abnormalities. Internal hemorrhoids were noted. The scope was withdrawn from the patient. He tolerated the procedure well and was returned to the recovery area in stable condition. IMPRESSION: 1. Diverticulosis. 2. Internal hemorrhoids. PLAN: Given his previous history, I would recommend a followup coloscopy in 5 years for further screening. He will otherwise see me on a p.r.n. basis. MD YAKELIN Anne/NAT / [phone]
== END | disposition home or self-care (01) ==
PROVIDERS: PCP Internal Medicine; Visit Provider Internal Medicine
PROC: 0DJD8ZZ Inspection of Lower Intestinal Tract, Via Natural or Artificial Opening Endoscopic (ICD-10-PCS; CPT 45378; principal; 2024-11-29 13:30)
DX: R93.3 Abnormal findings on diagnostic imaging of other parts of digestive tract (principal); Z86.0101 Personal history of adenomatous and serrated colon polyps; K57.30 Diverticulosis of large intestine without perforation or abscess without bleeding; K64.8 Other hemorrhoids; C61 Malignant neoplasm of prostate; I10 Essential (primary) hypertension; E78.5 Hyperlipidemia, unspecified; Z79.899 Other long term (current) drug therapy; Z90.79 Acquired absence of other genital organ(s)
CPT/HCPCS: 45378; J2003; J2704

== ENCOUNTER 2025-02-04 09:46 | Outpatient (REF) | payer BC, SELFPAY ==
--- OUTSIDE RECORDS SUMMARY | 2025-02-04 10:09 | XMS_ITS ---
Author Organization Jonas Evans MD Address [address] [place], [place] [phone] Care Team Providers Care Career Services Manager Name Role Phone Jonas Evans Primary Care Provider Allergies No Known Allergies REASON FOR VISIT [...] Problem Status W/U Status Risk Notes Problem [id number] History of prostate cancer (Z85.46) Active confirmed Vital Signs Blood pressure systolic 114 mm Hg 08/12/20 24 Blood pressure diastolic 60 mm Hg 024 Height 69.5 in 08/12/2024 Weight 210 lbs 08/12/2024 BMI 30.56 kg/m2 08/12/2024 weight is up 12 pounds since 02-09-24 Encounters Encounter Location Date Provider Diagnosis Jonas Evans MD [address] [place] [address] Drive [address] [place], [place] [phone] 08/12/2024 Jonas Evans History of prostate cancer [...] Up: 6 Months, Reason: Provider Name:Jonas arias, 02/10/2025 07:45:00 AM, [address], [address], [place], [place], [phone], Provider Name:Jonas Ramsay ier, 08/12/2025 07:00:00 AM, [address], [address], [place], [place], [phone], Provider Name:Jonas Ramsay ier, 08/18/2025 08:00:00 AM, [address], [address], [place], [place], [phone], Progress Notes * Reji TUCKERDOB: (69 yo M)Acc No.[id number]:08/12/2024 Progress Notes Patient:?Reji Tucker Provider:?Jonas Evans MD :1955???Age:69 Y???Sex:Male Viktor e:08/12/2024 Address:[address] [place], [place] [phone] Subjective: * Chief Complaints: * ???Annual visit * HPI: ???Depression Screening:?PHQ-9?Little interest or pleasure in doing things?Not at all,?Feeling down, depressed, or hopeless?Not at all,?Trouble falling or staying asleep, or sleeping too much?Not at all,?Feeling tired or having little energy?Not at all,?Poor appetite or overeating?Not at all,?Feeling bad about yourself or that you are a failure, or have let yourself or your family down?Not at all,?Trouble concentrating on things, such as reading the newspaper or watching television?Not at all.?Interpretation and Intervention?Depression Screening Findings?Negative,?Follow-Up for Depression?: review of PHQ-9 found negative result, no follow-up needed.? patient is a 69 yo male here for yearly evaluation with review of recent labs and folow up of chronic issues. ???Communication Needs:?Communication Needs?Does the patient have a hearing impairment?No,?Does the patient have a vision impairment??No,?Does the patient have a cognition impairment??No.?SDOH Questions:?SDOH Questions?In the past year have you been worried about losing housing??No,?In the past year have you or any family members you live with been unable to get any of the following when it was really needed? Check all that apply:?None.?Fall Risk:?History?Have you had any falls with injury in the past year??No,?Have you had two or more falls in the past year??No.? * ROS:?General/Constitutional:?Patient denies?fatigue , headache.?Change in appetite?denies.?Chills?denies.?Fever?denies.?Ophthalmologic:?Blurred vision?denies.?Discharge?denies.?Pain?denies.?ENT:?Patient denies?decreased sense of smell , any loss of taste , sore throat.?Decreased hearing?denies.?Sore throat?denies.?Swollen glands?denies.?Endocrine:?Cold intolerance?denies.?Excessive thirst?denies.?Heat intolerance?denies.?Weight loss?denies.?Respiratory:?Cough?denies.?Shortness of breath at rest?denies.?Shortness of breath with exertion?denies.?Wheezing?denies.?Cardiovascular:?Chest pain at rest?denies.?Chest pain with exertion?denies.?Irregular heartbeat?denies.?Shortness of breath?denies.?Gastrointestinal:?Abdominal pain?denies.?Change in bowel habits?denies.?Diarrhea?denies.?Nausea?denies.?Rectal bleeding?denies.?Vomiting?denies .?Genitourinary:?Blood in urine?denies.?Difficulty urinating?denies.?Frequent urination?denies.?Musculoskeletal:?Patient denies?muscle aches.?Painful joints?denies.?Weakness?denies.?Peripheral Vascular:?Patient denies?red and blue toes.?Skin:?Dry skin?denies.?Itching?denies.?Denies?Mole(s),? changes in moles, new moles or any lesions of concern.?Denies?Photosensitivity.?Rash?denies.?Neurologic:?Dizziness?denies.?Fainting?denies.?Headache?denies.? * Medical History:? * Surgical History:? * Hospitalization/Major Diagno stic Procedure:? * Family History:?Father: dece ased 66 yrs.?Mother: 75 yrs, diagnosed with Alzheimer disease.?2 daughter(s) - healthy. .? father, brain aneurysm, Denies mental health/substance abuse family history , Denies mental health/substance abuse family history. * Social History:?Tobacco Use:?Tobacco Use/Smoking?Patient is a?nonsmoker,?Additional Findings: Tobacco Non-User?Current non-smoker, currently using no form of tobacco.?Drugs/Alcohol:?Alcohol Screen?Did you have a drink containing alcohol in the past year??Yes,?How often did you have a drink containing alcohol in the past year??2 to 3 times a week (3 points),?How many drinks did you have on a typical day when you were drinking in the past year??1 or 2 drinks (0 point),?How often did you have 6 or more drinks on one occasion in the past year??Never (0 point),?Points?3,?Interpretation?Negative.?Miscellaneous:?Caffeine: yes, frequency:, 1-2 cups per day. Children: yes. no Community involvements. Exercise: yes, walks and 20 trips up and down the stairs carrying 20-40 pounds QD. Housing: owning. Living with: spouse. Marital status: . Occupation: works full-time. Pets: cats. no Travel outside of the [place]. * Medications:?TakingAtorvasta tin Calcium 40 MG Tablet TAKE 1 TABLET [...] reviewed and reconciled with the patient * Allergies:?N.K.D.A.yes[Aller gies Verified] Objective: * Vitals:?Ht: 69.5, Wt:210, BM I:30.56, BP:114/60 weight is up 12 pounds since 02-09-24. * ???Past Orders: ???Lab:Complete Blood Count Auto Diff (Order Date - 08/05/2024) (Collection Date - 08/05/2024) ? Value Reference Range ?White Blood Count 5.3 4. 8-10.8 - X10*3/uL ?Red Blood Count 4.41 L 4.60 -5.80 - X10*6/uL ?Hemoglobin 14.1 14.0-18.0 - g/dl ?Hematocrit 42.5 42.0-52.0 - % ?Mean Corpuscular Volume 96.4 80.0-98.0 - fL ?Mean Corpuscular Hemoglobin 32.0 27.0-33.0 - pg ?Mean Corpuscular HGB Conc 33.2 31.0-36.0 - g/dl ?Red Cell Distribution Width 12.6 11.0-16.0 - % ?Platelet Count 238 160-4 00 - X10*3/uL ?Mean Platelet Volume 10.6 9.4-12.4 - fL ?Neutrophils Percent Auto 41.4 L 45-73 - % ?Imm Gran Pct Auto 0.2 0. 0-0.4 - % ?Lymphocytes Percent Auto 44.3 H 20-40 - % ?Monocytes Percent Auto 11.2 H 2-11 - % ?Eosinophils Percent Auto 2.1 0-4 - % ?Basophils Percent Auto 0.8 0-2 - % ?NRBC Pct Auto 0.0 0.0-0. 2 - /100WBC ?Neutrophils Absolute Auto 2.2 2.0-8.3 - x10*3/uL ?Imm Gran Abs Auto 0.01 0. 00-0.03 - X10*3/uL ?Lymphocytes Absolute Auto 2.3 1.2-4.9 - X10*3/uL ?Monocytes Absolute Auto 0.6 0.1-1.2 - X10*3/uL ?Eosinophils Absolute Auto 0.1 0.0-0.4 - X10*3/uL ?Basophils Absolute Auto 0.0 0.0-0.2 - X10*3/uL ?NRBC Abs Auto 0.000 0.0-0. 012 - X10*3/uL ???Lab:UA ClnCatch+Micro w/r flx Cult (Order Date - 08/05/2024) (Collection Date - 08/05/2024) ? Value Reference Range ?Color Urine Yellow - ?Appearance Urine Clear - ?PH 5.5 5.0-9.0 - ?Glucose Urine UA Negative Neg ative - mg/dL ?Urine Blood Negative Negative - ?Specific [place] - Urine 1.020 1.005-1.025 - ?Urine Protein Negative Neg-Tr no - mg/dL ?Urine Ketones Negative Negati ve - mg/dL ?Nitrite Urine Negative Negati ve - ?Leukocyte Esterase Urine Negative Negative - ?RBC Urine 0-2 0-2 - /HPF ?WBC Urine 0-5 0-5 - /HPF ?Squamous Epithelial Cell Urine 0-2 0-2 - /HPF ?Bacteria Urine None Seen None Seen - ?Hyaline Casts Urine 0-2 0-2 - /LPF ???Lab:Comprehensive [place]. P eric Fast (Order Date - 08/05/2024) (Collection Date - 08/05/2024) ? Value Reference Range ?Sodium 141 135-145 - mmo l/L ?Bilirubin Total 1.0 0.0- 1.0 - mg/dL ?Aspartate Amino Transferase 22 5-37 - U/L ?Alanine Aminotransferase 20 0-40 - U/L ?Total Protein 6.9 6.5-8. 0 - g/dL ?Albumin Level 3.7 3.5-5. 0 - g/dL ?Alkaline Phosphatase 56 39-117 - U/L ?Potassium 3.9 3.3-5.1 - mmol/L ?Chloride 105 96-108 - mm ol/L ?Carbon Dioxide 27 22-29 - mmol/L ?Anion Gap 13 12-20 - ?Blood Urea Nitrogen 17 H 9-16 - mg/dL ?Creatinine 0.81 0.5-1.4 - mg/dL ?Estimated Glomerular Filt Rate > 60 - ?Glucose Fasting 98 60-9 9 - mg/dL ?Calcium 8.5 8.4-10.2 - m g/dL ???Lab:Lipid Panel (Order Da te - 08/05/2024) (Collection Date - 08/05/2024) ? Value Reference Range ?Triglycerides 65 <150 - mg/dL ?Cholesterol 181 <200 - m g/dL ?LDL Cholesterol Calculated 65 <100 - mg/dL ?HDL Cholesterol 103 >40 - mg/dL ???Lab:PSA,Total (Free>4and< 10) (Order Date - 08/05/2024) (Collection Date - 08/05/2024) ? Value Reference Range ?PSA,Total (Free>4and<10) < 0.10 0.00-4.00 - ng/mL ???Lab:Microalbumin, Random (Order Date - 08/05/2024) (Collection Date - 08/05/2024) ? Value Reference Range ?Creatinine Urine 199.66 - m g/dL ?Microalbumin Urine 10.0 - mg/L ?Microalbum Creatinine Ratio Ur 5.0 <30 - ug/mg cr ???Lab:Hemoglobin A1c (Order Date - 08/05/2024) (Collection Date - 08/05/2024) ? Value Reference Range ?Hemoglobin A1c % 5.0 <6. 0 - % ?Estimated Average Glucose 97 - mg/dL * Examination: ???General Examination: ?GENERAL APPEARANCE:?well developed, well nourished, in no acute distress.?HEAD:?normocephalic, atraumatic.?EYES:?pupils equal, round, reactive to light and accommodation, sclera non-icteric.?EARS:?normal.?ORAL CAVITY:?mucosa moist.?THROAT:?clear.?NECK/THYROID:?neck supple, full range of motion, no cervical lymphadenopathy, no bruits.?SKIN:?warm and dry, no suspicious lesions.?HEART:?regular rate and rhythm, S1, S2 normal, no murmurs.?LUNGS:?clear to auscultation bilaterally.?ABDOMEN:?soft, nontender, nondistended, bowel sounds present, normal, no organomegaly , no masses palpable.?RECTAL EXAM:?normal tone, no external hemorrhoids, no masses palpable, no prostate/ scar from surgeryl, stool guaiac negative.?MALE GENITOURINARY:?uncircumcised , no testicular mass , testes descended bilaterally.?EXTREMITIES:?no clubbing, cyanosis, or edema.?NEUROLOGIC:?nonfocal, motor strength normal upper and lower extremities, sensory exam intact.? Assessment: * Assessment: 1.?Annual physical exam - Z0 0.00 (Primary)?2.?History of prostate cancer - Z85.46?3.?Essential hypertension - I10?4.?Prediabetes - R73.09?5.?Pure hypercholesterolemia - E78.00?6.?Colon cancer screening - Z12.11?7.?Depression screening - Z13.31? Plan: * Treatment: 2.?History of prostate cance r? Notes: doing great after surgery?? 3.?Essential hypertension? Continue Valsartan-hydroCHLOROthiazide Tablet, 320-25 MG, TAKE 1 TABLET BY MOUTH EVERY DAY.?? Notes: well controlled, will continue current regiment?? 4.?Prediabetes? Notes: stable, no need for medication at this time?? 5.?Pure hypercholesterolemia ? Continue Atorvastatin Calcium Tablet, 40 MG, TAKE 1 TABLET BY MOUTH EVERY DAY.?? Notes: stable, will contiue current regiment?? 6.?Colon cancer screening? Notes: guaiac negative?? 7.?Depression screening? Notes: negative screen?? * Immunizations:? Fluarix Quadrivalent - 150 (Not administered - Refused: Patient decision) * Procedure Codes:? * Follow Up:?6 Months * * Sign off status: Completed true * Provider:?Jonas Evans MD Date:?1 10/12/2023 Generated for Nusrat baez/Christine/Vikasmitting on:?02/04/2025 10:09 AM EDT History and Physical Notes * HPI [...]
--- OUTSIDE RECORDS SUMMARY | 2025-02-04 10:09 | XMS_ITS | Patient Health Record ---
Author Organization [facility] Address [address] [place] [address] Care Team Providers Care Car Filler Name Role Phone Jonas Morse MD Primary Care Provider Jamie Pittman Unavailable [phone] Allergies No Known Allergies Reason For Referral Referring Provider First Name Jonas Referring Provider Last Name Nathan Referring Provider Speciality Internal M edicine Referred Organization [facility] Referred Provider Jamie Bell Referred Address [address] [facility],[place], [place],[address],[place] Referred Provider Specialty Gastroentero logy General Notes Una Agustin 024 03:34:19 PM EDT > REQUESTED AN O BLUE REFERRAL FROM DR MORSE'S OFFICE FOR VISIT WITH DR BELL ON 06-23-2024 EXT [phone] Referral Priority Routine Medications Medication SIG (Take, Route, Frequency, Duration) Notes Start Date End Date Status Atorvastatin Calcium Active Valsartan-hydroCHLOROthiazi de Active Immunizations Vaccine Route Administration Date Status Comme nts Influenza Unknown 02/20/2022 Refused Influenza Unknown 06/23/2024 Refused Problems Problem Type SNOMED Code ICD Code Onset Dates Problem Status W/U Status Risk Notes Problem [id number] Encounter for screening for malignant neoplasm of colon (Z12.11) Active confirmed Problem History of adenomatous polyp of colon (615749812) History of adenomatous polyp of colon (Z86.010) Active confirmed Problem Rectal polyp (75028827) Rectal polyp (K62.1) Active confirmed Problem Screening for malignant neoplasm of rectum (163360046) Encounter for screening for malignant neoplasm of rectum (Z12.12) Active confirmed Problem 92662870 Preprocedural examination (Z01.818) Active confirmed Problem Diverticulosis of colon (993622483) Diverticulosis of colon (K57.30) Active confirmed Problem Imaging of abdomen abnormal (293518789) Abnormal MRI of the abdomen (R93.5) Active confirmed Vital Signs Temperature 97.5 degrees Fahrenheit 06/23/2024 Blood pressure diastolic 00 mm Hg 06/23/2024 Height 68 in 06/23/2024 Blood pressure systolic 000 mm Hg 06/23/2024 Weight 203 lbs 06/23/2024 BMI 30.86 kg/m2 06/23/2024 Encounters Encounter Location Date Provider Diagnosis [facility] [place] [address] [place] [id number] 11/29/2024 Jamie Bell Abnormal abdominal C T scan R93.5 ; Personal history of adenomatous and serrated colon polyps Z86.0101 ; Diverticulosis of colon K57.30 and Internal hemorrhoids K64.8 [facility] [address] [place] [phone] 06/23/2024 Jamie Bell Rectal polyp K62.1 a nd Abnormal MRI of the abdomen R93.5 [facility] [address] [place] [address] 10/01/2024 Jamie Bell Assessments Encounter Date Diagnosis (ICD Code) Assessment Notes Treatment Notes Treatment Clinical Notes Section Notes 11/29/[address] scan (ICD-10 - R93.5) 11/29/2024 Personal history of adenomatous and serrated colon polyps (ICD-10 - Z86.0101) 06/23/2024 Rectal polyp (ICD-10 - K62.1) Overall, Barry appears well. While he is not having any worrisome symptoms and the MRI may be a false positive, I did recommend a colonoscopy for further evaluation. We did review the rationale for that in regards to colorectal cancer prevention. The procedure will be set up electively for him into 2024 as I don't think there is any urgency to it and he just had his prostatectomy not too long ago. Full consent was obtained for this, including risks of bleeding and perforation. The procedure will be done with monitored anesthesia care. Barry was comfortable with this plan. Thank you again for allowing me to participate in Barry's care. I shall continue to keep you advised of his progress. 06/23/2024 Abnormal MRI of the abdomen (ICD-10 - R93.5) Overall, Barry appears well. While he is not having any worrisome symptoms and the MRI may be a false positive, I did recommend a colonoscopy for further evaluation. We did review the rationale for that in regards to colorectal cancer prevention. The procedure will be set up electively for him into 2024 as I don't think there is any urgency to it and he just had his prostatectomy not too long ago. Full consent was obtained for this, including risks of bleeding and perforation. The procedure will be done with monitored anesthesia care. Barry was comfortable with this plan. Thank you again for allowing me to participate in Barry's care. I shall continue to keep you advised of his progress. 11/29/2024 Diverticulosis of colon (ICD-10 - K57.30) 11/29/2024 Internal hemorrhoids (ICD-10 - K64.8) Plan Of Treatment Future Test Test Name Order Date COLONOSCOPY 10/19/2015 COLONOSCOPY 02/20/2022 COLONOSCOPY 06/23/2024 Insurance Providers Payer Name Payer Address Payer Phone Subscriber Number Group Number Insured Name Patient Relationship to Insured Coverage Start Date Coverage End Date [facility] [employer] PROF[employer] CLAIMS [address] [place] [address] [id number] BARRY FRANCO Self - patient is the insured Medical (General) History Medical History History ICD Code Denies [place],DM,CVA,Lung disease,renal dise ase Hypertension Hyperlipidemia Screening colonoscopy 11/2015 with 2 tubu lar adenomas removed Screening colonoscopy in February of 2022 wi th a single tubular adenoma removed Prostate cancer in February of 2024 with alvin mixon as below Surgical History Surgery Date(Month/Year) Prostatectomy for cancer in February of 2024 at [facility]
--- OUTSIDE RECORDS SUMMARY | 2025-02-04 10:09 | XMS_ITS ---
Author Organization [facility] Address [address] [place] [address] Care Team Providers Care Industrial Relations Commissioner Name Role Phone Nathan TURPIN, Jonas Primary Care Provider Jamie Pittman Unavailable [phone] REASON FOR VISIT rectal polyp Encounters Encounter Location Date Provider Diagnosis [facility] [place] [address] [place], [place] [phone] 11/29/2024 Jamie Sher Abnormal abdominal CT scan [...] Notes * BARRY FRANCODOB:1955 (69 yo M)Acc No.[id number]:11/29/2024 COLON WITH MAC Patient:?BARRY FRANCO Provider:?Jamie Sher MD :1955???Age:69 Y???Sex:Male Viktor e:11/29/2024 Address:[address] [place], [place] [phone] Pcp:Jonas Evans MD Subjective: * Chief Complaints: * ???1. Rectal polyp. * Medical History:? Objective: * Vitals:? Assessment: * Assessment: 1.?Abnormal abdominal CT sca n - R93.5 (Primary)???2.?Personal history of adenomatous and serrated colon polyps - Z86.0101???3.?Diverticulosis of colon - K57.30???4.?Internal hemorrhoids - K64.8??? Plan: * Treatment: * Procedure Codes:?16489 DIAGN OSTIC COLONOSCOPY, Modifiers: 33 * * The named appointment provid er may or may not be the originator of this progress note, and it is not deemed complete until electronically signed by the appointment provider. Sign off status: Pending * Provider:?Jamie Sher MD Date:? 025 Generated for Nusrat baez/Christine/Maritzaransmitting on:?02/04/2025 10:09 AM EDT
--- OUTSIDE RECORDS SUMMARY | 2025-02-04 10:09 | XMS_ITS ---
Author Organization [facility] Address [address] [place] [phone] Care Team Providers Care Hospital Cleaner Name Role Phone Nathan TURPIN, Jonas Primary Care Provider Jamie Pittman [phone] REASON FOR VISIT reschedule Encounters Encounter Location Date Provider Diagnosis [facility] [address] [place] [phone] 10/01/2024 Jamie Sher Plan Of Treatment No Information Progress Notes * BARRY FRANCODOB:1955 (69 yo M)Acc No.[id number]:10/01/2024 Patient:?BARRY FRANCO :1955???Age:69 Y???Sex:Male Address:[address] [place] [address], [address] * true * Date:? Generated for Terai sasha/Christine/eTransmitting on:?02/04/2025 10:08 AM EDT
--- OUTSIDE RECORDS SUMMARY | 2025-02-04 10:09 | XMS_ITS | Patient Health Record ---
Author Organization Jonas Evans MD Address [address] [place], [place] [id number] Care Team Providers Care Office Machines Sales Representative Name Role Phone Jonas Evans Primary Care Provider Allergies No Known Allergies Results Component Value Reference Range Notes PSA,Total (Free>4and<10) Reviewed date:05/27/2024 12:00:17 PM Interpretation: Performing Lab:[facility], [address] [place] [phone] Notes/Report: PSA,Total (Free>4and<10) < 0.10 0.00-4.00 ng/mL [...] ff Reviewed date:08/05/2024 12:33:38 PM Interpretation: Performing Lab:[facility], [address] [place] [phone] Notes/Report: White Blood Count 5.3 4.8-10.8 X10*3/uL [...] NRBC Abs Auto 0.000 0.0-0.012 X10*3/uL Comprehensive [place]. Panel Fa st Reviewed date:08/05/2024 12:33:18 PM Interpretation: Performing Lab:[facility], [address] [place] [phone] Notes/Report: Sodium 141 135-145 mmol/L Potassium 3.9 3.3-5.1 mmol/L Chloride 105 96-108 mmol/L Carbon Dioxide 27 22-29 mmol/L Anion Gap 13 12-20 Blood Urea Nitrogen 17 9-16 mg/dL Creatinine 0.81 0.5-1.4 mg/dL Estimated Glomerular Filt Rate > 60 NOTE: For -Monegasque individuals, multiply the result by 1.210. Chronic [...] Panel Reviewed date:08/05/2024 12:33:53 PM Interpretation: Performing Lab:[facility], [address] [place] [phone] Notes/Report: Triglycerides 65 <150 mg/dL Desirable Triglyceride: [...] (Free>4and<10) Reviewed date:08/05/2024 01:13:41 PM Interpretation: Performing Lab:[facility], [address] [place] [phone] Notes/Report: PSA,Total (Free>4and<10) < 0.10 0.00-4.00 ng/mL [...] Random Reviewed date:08/05/2024 01:13:32 PM Interpretation: Performing Lab:[address] [phone] Notes/Report: Creatinine Urine 199.66 Microalbumin Urine 10.0 Microalbum/Creatinine Ratio Ur 5.0 <30 ug/mg cr Albumin/Creatinine Ratio Reference Ranges: Normal: < 30 ug/mg creatinine Microalbuminuria: 30 - 300 ug/mg creatinine Clinical Albuminuria: > 300 ug/mg creatinine Hemoglobin A1c Reviewed date:08/05/2024 12:32:53 PM Interpretation: Performing Lab:[address] [phone] Notes/Report: Hemoglobin A1c % 5.0 <6.0 % [...] average glucose, using the formula of the R9U-Dwgkfwq Average Glucose study (ADAG), Diabetes Care, Vol.31,#8, Apr. 2007 UA ClnCatch+Micro w/rflx Cul t Reviewed date:08/05/2024 12:34:21 PM Interpretation: Performing Lab:[address] [phone] Notes/Report: Urine, Clean Catch Color Urine Yellow Appearance Urine Clear PH 5.5 5.0-9.0 Glucose Urine UA Negative Negative mg/dL Urine Blood Negative Negative Specific [place] - Urine 1.020 1.005-1.025 Urine Protein Negative Neg-Trace mg/dL Urine Ketones Negative Negative mg/dL Nitrite Urine Negative Negative Leukocyte Esterase Urine Negative Negative RBC Urine 0-2 0-2 /HPF WBC Urine 0-5 0-5 /HPF Squamous Epithelial Cell Urine 0-2 0-2 /HPF Bacteria Urine None Seen None Seen Hyaline Casts Urine 0-2 0-2 /LPF Hold Green Gel Reviewed date:05/27/2024 12:27:50 PM Interpretation: Performing Lab:[facility], [address] [place] [phone] Notes/Report: Hold Green Gel See Note Specimen held untested for 24 hours; Call to request Chemistry testing. Hold Gold (Not yet reviewed by provider) Interpretation: Performing Lab:[facility], [address] [place] [phone] Notes/Report: Hold Gold See Note Specimen held untested for 24 hours; Call to request Chemistry testing. Reason For Referral Reason polyp rectum ins re ferral needed [...] Referral Priority Routine Referral Appointment Date 06/23/2024 Medications Medication SIG (Take, Route, Frequency, Duration) Notes Start Date End Date Status Valsartan-hydroCHLOROthiazi de 320-25 MG TAKE 1 TABLET BY MOUTH EVERY DAY Active Atorvastatin Calcium 40 MG TAKE 1 TABLET BY MOUTH EVERY DAY for 90 Active Immunizations Vaccine Route Administration Date Status [...] Problem Status W/U Status Risk Notes Problem 90595991 Lymphocytosis (D72.820) Active confirm ed Problem 777390197 Tubular adenoma of colon (D12.6) Active confirmed Problem 05210446 Essential hypert ension (I10) Active confirmed Problem 7445873 Prediabetes (R73.09) Active confirmed Problem 64913007 RBBB (I45.10) Active confirmed Problem 740116628 History of prost ate cancer (Z85.46) Active confirmed Problem 950807410 Rising PSA level (R97.20) Active confirmed Problem 194697939 Pure hypercholesterolemia (E78.00) Active confirmed Vital Signs Blood pressure diastolic 60 mm Hg 08/12/2024 [...] Jonas Evans MD [address] [place] [phone] 05/27/2024 Jonas Evans Rising PSA level R97 .20 Jonas Evans MD [address] [place], [place] [phone] 08/05/2024 Jonas Evans Blood tests for rout ine general physical examination Z00.00 ; Essential hypertension I10 ; Prediabetes R73.09 ; Pure hypercholesterolemia E78.00 ; Lymphocytosis D72.820 and Rising PSA level R97.20 Jonas Evans MD [address] [place] [phone] 02/04/2025 Jonas Evans Prediabetes R73.09 a nd Pure hypercholesterolemia E78.00 Jonas Evans MD [address] [place] [phone] 02/09/2024 Jonas Evans Encounter for preprocedural cardiovascular examination Z01.810 ; Essential hypertension I10 and Prediabetes R73.09 Jonas Evans MD [address] [place] [phone] 08/12/2024 Jonas Evans History of prostate cancer Z85.46 ; Annual physical exam Z00.00 ; Essential hypertension I10 ; Prediabetes R73.09 ; Pure hypercholesterolemia E78.00 ; Colon cancer screening Z12.11 and Depression screening Z13.31 Assessments Encounter Date Diagnosis (ICD Code) Assessment Notes Treatment Notes Treatment Clinical Notes Section Notes 05/27/2024 Rising PSA level (ICD-10 - R97.20) 08/05/2024 [address] tests [address] ine general physical examination (ICD-10 - Z00.00) 08/05/2024 Essential hypertensi on (ICD-10 - I10) 02/04/2025 Prediabetes (ICD-10 - R73.09) 02/09/2024 Encounter for preprocedural cardiovascular examination (ICD-10 - Z01.810) ecg with RBBB unchanged from previous ecg. low risk patient. no need for any further testing prior to the upcoming surgery 02/09/2024 Essential hypertensi on (ICD-10 - I10) bp running on the low side but asymptomatic. will hold antihypertensive prior to surgery 08/12/2024 History of prostate cancer (ICD-10 - Z85.46) doing great after surgery 08/12/2024 Annual physical exam (ICD-10 - Z00.00) labs reviewed and discussed with patient 08/05/2024 Prediabetes (ICD-10 - R73.09) 02/04/2025 Pure hypercholesterolemia (ICD-10 - E78.00) 02/09/2024 Prediabetes (ICD-10 - R73.09) stable, no need for medication at this time 08/12/2024 Essential hypertensi on (ICD-10 - I10) well controlled, will continue current regiment 08/05/2024 Pure hypercholesterolemia (ICD-10 - E78.00) 08/12/2024 Prediabetes (ICD-10 - R73.09) stable, no need for medication at this time 08/05/2024 Lymphocytosis (ICD-1 0 - D72.820) 08/12/2024 Pure hypercholesterolemia (ICD-10 - E78.00) stable, will contiue current regiment 08/05/2024 Rising PSA level (ICD-10 - R97.20) 08/12/2024 Colon cancer screeni ng (ICD-10 - Z12.11) guaiac negative 08/12/2024 Depression screening (ICD-10 - Z13.31) negative screen Plan Of Treatment Pending Test Test Name Order Date Electrocardiogram (EKG) 01/11/2016 Electrocardiogram (EKG) 02/09/2024 Electrocardiogram (EKG) 02/07/2017 Electrocardiogram (EKG) 02/19/2018 Electrocardiogram (EKG) 03/05/2019 MRA BRAIN NO CONTRAST 03/05/2019 Liver Panel 02/04/2025 Glucose Fasting 02/04/2025 Lipid Panel with Reflex 02/04/2025 Hold Gold 02/04/2025 Hemoglobin A1c 02/04/2025 Next Appt Details Provider Name:Jonas arias, 02/10/2025 07:45:00 AM, [address] [place] [address], Suite [facility], [place], [place], [phone], Provider Name:Jonas arias, 08/12/2025 07:00:00 AM, [address] [place] [address], [address], [place], [place], [phone], Provider Name:Jonas arias, 08/18/2025 08:00:00 AM, [address] [place] [address], [place] [address], [place], [place], [phone], Insurance Providers Payer Name Payer Address Payer Phone Subscriber Number Group Number Insured Name Patient Relationship to Insured Coverage Start Date Coverage End Date [employer] [address] [place], [place] [id number] Reji Tucker Self - patient is the insured Medical (General) History Medical History History ICD Code 10/30/12 - refused flu shot discussed colonoscopy schedu led 2014; colonoscopy 12/27/15 - repeat 5 yrs (Dr. Sher)(2020) colonoscopy 2021 repeat in 5 years: 03/20/22 colonoscopy repeat 5 yrs ( 2026) Lymphocytosis Xanthelasma of eyelid
--- OUTSIDE RECORDS SUMMARY | 2025-02-04 10:09 | XMS_ITS ---
Author Organization Jonas Evans MD Address [address] [place], [place] [phone] Care Team Providers Care Tactical Debriefer Name Role Phone Jonas Evans Primary Care Provider Results Component Value Reference Range Notes Complete Blood Count Auto Di ff Reviewed date:08/05/2024 12:33:38 PM Interpretation: Performing Lab:[facility], [address] [place] [phone] Notes/Report: White Blood Count 5.3 4.8-10.8 X10*3/uL [...] NRBC Abs Auto 0.000 0.0-0.012 X10*3/uL Comprehensive [place]. Panel Fa st Reviewed date:08/05/2024 12:33:18 PM Interpretation: Performing Lab:[address] [phone] Notes/Report: Sodium 141 135-145 mmol/L Potassium 3.9 3.3-5.1 mmol/L Chloride 105 96-108 mmol/L Carbon Dioxide 27 22-29 mmol/L Anion Gap 13 12-20 Blood Urea Nitrogen 17 9-16 mg/dL Creatinine 0.81 0.5-1.4 mg/dL Estimated Glomerular Filt Rate > 60 NOTE: For -Chilean individuals, multiply the result by 1.210. Chronic [...] Panel Reviewed date:08/05/2024 12:33:53 PM Interpretation: Performing Lab:[facility], [address] [place] [phone] Notes/Report: Triglycerides 65 <150 mg/dL Desirable Triglyceride: [...] (Free>4and<10) Reviewed date:08/05/2024 01:13:41 PM Interpretation: Performing Lab:[address] [phone] Notes/Report: PSA,Total (Free>4and<10) < 0.10 0.00-4.00 ng/mL [...] Random Reviewed date:08/05/2024 01:13:32 PM Interpretation: Performing Lab:[facility], [address] [place] [phone] Notes/Report: Creatinine Urine 199.66 Microalbumin Urine 10.0 Microalbum/Creatinine Ratio Ur 5.0 <30 ug/mg cr Albumin/Creatinine Ratio Reference Ranges: Normal: < 30 ug/mg creatinine Microalbuminuria: 30 - 300 ug/mg creatinine Clinical Albuminuria: > 300 ug/mg creatinine Hemoglobin A1c Reviewed date:08/05/2024 12:32:53 PM Interpretation: Performing Lab:[address] [phone] Notes/Report: Hemoglobin A1c % 5.0 <6.0 % [...] average glucose, using the formula of the N0T-[place]hogf[place] Average Glucose study (ADAG), Diabetes Care, Vol.31,#8, Apr. 2007 UA ClnCatch+Micro w/rflx Cul t Reviewed date:08/05/2024 12:34:21 PM Interpretation: Performing Lab:[facility], [address] [place] [phone] Notes/Report: Urine, Clean Catch Color Urine Yellow Appearance Urine Clear PH 5.5 5.0-9.0 Glucose Urine UA Negative Negative mg/dL Urine Blood Negative Negative Specific [place] - Urine 1.020 1.005-1.025 Urine Protein Negative [...] Date Provider Diagnosis Jonas Evans MD [address] [facility] [address] [place], [place] [phone] 08/05/2024 Jonas Evans Blood tests for rout [...] Next Appt Details Provider Name:Jonas Ramsay ier, 02/10/2025 07:45:00 AM, [address], Suite [facility], [place], [place], [phone], Provider Name:Jonas Ramsay ier, 08/12/2025 07:00:00 AM, [address] [facility], [address], [place], [place], [phone], Provider Name:Jonas Ramsay ier, 08/18/2025 08:00:00 AM, [address] [facility], [address] [facility], [place], [place], [phone], Progress Notes * Reji TUCKERDOB: (69 yo M)Acc No.[id number]:08/05/2024 Progress Note Patient:?Reji TUCKER Provider:?Jonas Evans MD :1955???Age:69 Y???Sex:Male Viktor e:08/05/2024 Address:[address] [place] [phone] Subjective: * Chief Complaints: * ???1. Yearly fasting labs. * Medical History:? Objective: * Vitals:? Assessment: * Assessment: 1.?Blood tests for routine g eneral physical examination - Z00.00 (Primary)???2.?Essential hypertension - I10???3.?Prediabetes - R73.09???4.?Pure hypercholesterolemia - E78.00???5.?Lymphocytosis - D72.820???6.?Rising PSA level - R97.20??? Plan: * Treatment: 2.?Essential hypertension?LAB: Complete Blood Count Auto Diff (Collection Date & Time - 08/05/2024 07:00 AM) ?LAB: Comprehensive [place]. Panel Fast (Collection Date & Time - 08/05/2024 07:00 AM) ?LAB: Lipid Panel (Collection Date & Time - 08/05/2024 07:00 AM) ?LAB: PSA,Total (Free>4and<10) (Collection Date & Time - 08/05/2024 07:00 AM) ?LAB: Microalbumin, Random (Collection Date & Time - 08/05/2024 07:00 AM) ?LAB: Hemoglobin A1c (Collection Date & Time - 08/05/2024 07:00 AM) ?LAB: UA ClnCatch+Micro w/rflx Cult (Collection Date & Time - 08/05/2024 07:00 AM) 3.?Prediabetes?LAB: Complete Blood Count Auto Diff (Collection Date & Time - 08/05/2024 07:00 AM) ?LAB: Comprehensive [place]. Panel Fast (Collection Date & Time - 08/05/2024 07:00 AM) ?LAB: Lipid Panel (Collection Date & Time - 08/05/2024 07:00 AM) ?LAB: PSA,Total (Free>4and<10) (Collection Date & Time - 08/05/2024 07:00 AM) ?LAB: Microalbumin, Random (Collection Date & Time - 08/05/2024 07:00 AM) ?LAB: Hemoglobin A1c (Collection Date & Time - 08/05/2024 07:00 AM) ?LAB: UA ClnCatch+Micro w/rflx Cult (Collection Date & Time - 08/05/2024 07:00 AM) 4.?Pure hypercholesterolemia ?LAB: Complete Blood Count Auto Diff (Collection Date & Time - 08/05/2024 07:00 AM) ?LAB: Comprehensive [place]. Panel Fast (Collection Date & Time - 08/05/2024 07:00 AM) ?LAB: Lipid Panel (Collection Date & Time - 08/05/2024 07:00 AM) ?LAB: PSA,Total (Free>4and<10) (Collection Date & Time - 08/05/2024 07:00 AM) ?LAB: Microalbumin, Random (Collection Date & Time - 08/05/2024 07:00 AM) ?LAB: Hemoglobin A1c (Collection Date & Time - 08/05/2024 07:00 AM) ?LAB: UA ClnCatch+Micro w/rflx Cult (Collection Date & Time - 08/05/2024 07:00 AM) 5.?Lymphocytosis?LAB: Complete Blood Count Auto Diff (Collection Date & Time - 08/05/2024 07:00 AM) ?LAB: Comprehensive [place]. Panel Fast (Collection Date & Time - 08/05/2024 07:00 AM) ?LAB: Lipid Panel (Collection Date & Time - 08/05/2024 07:00 AM) ?LAB: PSA,Total (Free>4and<10) (Collection Date & Time - 08/05/2024 07:00 AM) ?LAB: Microalbumin, Random (Collection Date & Time - 08/05/2024 07:00 AM) ?LAB: Hemoglobin A1c (Collection Date & Time 08/05/2024 07:00 AM) ?LAB: UA ClnCatch+Micro w/rflx Cult (Collection Date & Time - 08/05/2024 07:00 AM) 6.?Rising PSA level?LAB: Complete Blood Count Auto Diff (Collection Date & Time - 08/05/2024 07:00 AM) ?LAB: Comprehensive [place]. Panel Fast (Collection Date & Time - 08/05/2024 07:00 AM) ?LAB: Lipid Panel (Collection Date & Time - 08/05/2024 07:00 AM) ?LAB: PSA,Total (Free>4and<10) (Collection Date & Time - 08/05/2024 07:00 AM) ?LAB: Microalbumin, Random (Collection Date & Time - 08/05/2024 07:00 AM) ?LAB: Hemoglobin A1c (Collection Date & Time - 08/05/2024 07:00 AM) ?LAB: UA ClnCatch+Micro w/rflx Cult (Collection Date & Time - 08/05/2024 07:00 AM) * Procedure Codes:?83739 VENIP UNCT, ROUTINE* * * The named appointment provid er may or may not be the originator of this progress note, and it is not deemed complete until electronically signed by the appointment provider. Sign off status: Pending * Provider:?Jonas Evans MD Date:?1 10/05/2023 Generated for Nusrat baez/Christine/Hemalitting on:?02/04/2025 10:08 AM EDT
--- OUTSIDE RECORDS SUMMARY | 2025-02-04 10:10 | XMS_ITS ---
Author Organization [facility] Address [address] [place] [phone] Care Team Providers Care Favor Maker Name Role Phone Nathan TURPIN, Jonas Primary Care Provider Jamie [facility] [phone] REASON FOR VISIT rectal polyp Encounters Encounter Location Date Provider Diagnosis [facility] [address] [place], [place] [phone] 10/04/2024 Jamie Sher Plan Of Treatment No Information Progress Notes * BARRY FRANCODOB:1955 (69 yo M)Acc No.[id number]:10/04/2024 COLON WITH MAC Patient:?BARRY FRANCO Provider:?Jamie Sher MD :1955???Age:69 Y???Sex:Male Viktor e:10/04/2024 Address:[address] [place], [place] [phone] Pcp:Jonas Evans MD Subjective: * Chief Complaints: * ???1. Rectal polyp. * Medical History:? Objective: * Vitals:? Assessment: Plan: * Treatment: * * The named appointment provid er may or may not be the originator of this progress note, and it is not deemed complete until electronically signed by the appointment provider. Sign off status: Pending * Provider:?Jamie Sher MD Date:? 025 Generated for Terai ng/Fajaclyng/eTransmitting on:?02/04/2025 10:09 AM EDT
--- OUTSIDE RECORDS SUMMARY | 2025-02-04 10:10 | XMS_ITS ---
Author Organization Jonas Evans MD Address [address] [phone] Care Team Providers Care Carnallite Plant Operator Name Role Phone Jonas Evans Primary Care Provider REASON FOR VISIT FASTING LIPIDS Encounters Encounter Location Date Provider Diagnosis Jonas Evans MD [address] [place] [phone] 02/04/2025 Jonas Evans Prediabetes R73.09 a nd Pure hypercholesterolemia E78.00 Assessments Encounter Date Diagnosis (ICD Code) Assessment Notes Treatment Notes Treatment Clinical Notes Section Notes 02/04/2025 Prediabetes (ICD-10 - R73.09) 02/04/2025 Pure hypercholesterolemia (ICD-10 - E78.00) Plan Of Treatment Pending Test Test Name Order Date Liver Panel 02/04/2025 Glucose Fasting 02/04/2025 Lipid Panel with Reflex 02/04/2025 Hemoglobin A1c 02/04/2025 Next Appt Details Provider Name:Jonas arias, 02/10/2025 07:45:00 AM, [address] [place] [address], [address], [phone], Provider Name:Jonas arias, 08/12/2025 07:00:00 AM, [address] [place] [address], [address], [phone], Provider Name:Jonas arias, 08/18/2025 08:00:00 AM, [address] [place] [address], [phone], Progress Notes * Reji TUCKERDOB: (69 yo M)Acc No.[id number]:02/04/2025 Progress Note Patient:?Reji TUCKER Provider:?Jonas Evans MD :1955???Age:69 Y???Sex:Male Viktor e:02/04/2025 Address:[address] [place], [place] [phone] Subjective: * Chief Complaints: * ???1. FASTING LIPIDS. * Medical History:? Objective: * Vitals:? Assessment: * Assessment: 1.?Prediabetes - R73.09 (Tameka luis carlos)???2.?Pure hypercholesterolemia - E78.00??? Plan: * Treatment: 2.?Pure hypercholesterolemia ?LAB: Liver Panel ?LAB: Glucose Fasting ?LAB: Lipid Panel with Reflex ?LAB: Hemoglobin A1c * * The named appointment provid er may or may not be the originator of this progress note, and it is not deemed complete until electronically signed by the appointment provider. Sign off status: Pending * Provider:?Jonas Evans MD Date:?0 02/04/2025 Generated for Nusrat baez/Christine/eTphanismitting on:?02/04/2025 10:09 AM EDT
[2025-02-04 10:17] LABS: Estimated Average Glucose 97 mg/dL; Hemoglobin A1C 111.1831 umol/L; Total Hemoglobin (HGBA1C) 3511.4664 umol/L
[2025-02-04 10:37] LABS: Alanine Aminotransferase 17 U/L (0-40); Albumin Level 3.6 g/dL (3.5-5.0); Alkaline Phosphatase 66 U/L (39-117); Aspartate Amino Transferase 22 U/L (5-37); Bilirubin Direct 0.3 mg/dL (0.0-0.5); Bilirubin Total 0.7 mg/dL (0.0-1.0); Cholesterol 176 mg/dL (<200); Glucose Fasting 78 mg/dL (60-99); HDL Cholesterol 89 mg/dL (>40); LDL Cholesterol Calculated 74 mg/dL (<100); Total Protein 6.7 g/dL (6.5-8.0); Triglycerides 67 mg/dL (<150)
[2025-02-04 10:47] LABS: Reflex LDLD? No
== END 2025-02-04 09:47 | disposition home or self-care (01) ==
LOC: HO.LNP 09:46
PROVIDERS: Visit Provider Internal Medicine
DX: R73.03 Prediabetes (principal); E78.00 Pure hypercholesterolemia, unspecified
CPT/HCPCS: 80061; 80076; 82947; 83036

== ENCOUNTER → 2025-05-24 09:33 | Outpatient (REF) | payer BC, SELFPAY ==
--- OUTSIDE RECORDS SUMMARY | 2024-10-04 09:30 | XMS_ITS ---
Author Organization [facility] Address [address] [place] [phone] Care Team Providers Care Gas Adjuster Name Role Phone Nathan TURPIN, Jonas Primary Care Provider Jamie Pittman [phone] REASON FOR VISIT rectal polyp Encounters Encounter Location Date Provider Diagnosis [facility] [place] Out[place] [address] [place], [place] [phone] 10/04/2024 Jamie Sher Plan Of Treatment No Information Progress Notes * BARRY FRANCODOB:1955 (69 yo M)Acc No.[id number]:10/04/2024 COLON WITH MAC Patient: BARRY QUINTERO Provider: Paul Sher MD :1955 A ge:69 Y S ex:Male Date:10/04/2024 Address:[address] [place], [place] [phone] Pcp:Jonas Evans MD Subjective: * Chief Complaints: * 1 . Rectal polyp. * Medical History: Objective: * Vitals: Assessment: Plan: * Treatment: * * The named appointment provid er may or may not be the originator of this progress note, and it is not deemed complete until electronically signed by the appointment provider. Sign off status: Pending * Provider: Paul hSer MD Date: 0 10/04/2024 Generated for Terai ng/Fajaclyng/eTransmitting on: 0 05/24/2025 10:09 AM EDT
--- OUTSIDE RECORDS SUMMARY | 2024-11-29 09:30 | XMS_ITS ---
Author Organization [facility] Address [address] [place] [address] Care Team Providers Care Wire Turning Machine Operator Name Role Phone Nathan TURPIN, Jonas Primary Care Provider Jamie Pittman [phone] REASON FOR VISIT rectal polyp Encounters Encounter Location Date Provider Diagnosis [facility] [address] [place], [place] [phone] 11/29/2024 Jamie Sher Abnormal abdominal CT scan [...] Notes * BARRY FRANCODOB:1955 (69 yo M)Acc No.[id number]:11/29/2024 COLON WITH MAC Patient: BARRY QUINTERO Provider: Paul Sher MD :1955 A ge:69 Y S ex:Male Date:11/29/2024 Address:[address] [place], [place] [phone] Pcp:Jonas Evans MD Subjective: * Chief Complaints: [...] 0 11/29/2024 Generated for Nusrat baez/Christine/Hemalitting on: 0 05/24/2025 10:09 AM EDT
--- OUTSIDE RECORDS SUMMARY | 2025-05-20 08:30 | XMS_ITS ---
Author Organization Jonas Evans MD Address [address] [place] [phone] Care Team Providers Care Hobber Name Role Phone Jonas Evans Primary Care [...] 05/20/2025 weight is down 20 pounds sin ce 02-10-25 Encounters Encounter Location Date Provider Diagnosis Jonas Evans MD [address] [place] [phone] 05/20/2025 Jonsa Evans Hypotension due to drugs I95.2 and [...] Name:Jonas Ramsay ier, 08/12/2025 07:00:00 AM, [address] [facility], [address], [place], [place], [phone], Provider Name:Jonas Ramsay ier, 08/18/2025 08:00:00 AM, [address] [facility], [address], [place], [place], [phone], Progress Notes * Reji TUCKER CameronDOB: (69 yo M)Acc No.[id number]:05/20/2025 Progress Notes Patient: Reji QUINTERO Provider: Nohemy Evans MD :1955 A ge:69 Y S ex:Male Date:05/20/2025 Address:[address] [place] [phone] Subjective: * Chief Complaints: * ? pre [...] MD Date: 0 05/20/2025 Generated for Nusrat baez/Christine/eTransmitting on: 05/24/2025 10:09 AM EDT History and Physical Notes [...]
--- OUTSIDE RECORDS SUMMARY | 2025-05-20 08:47 | XMS_ITS ---
Author Organization Jonas Evans MD Address 10 [facility] [address] [place] [phone] Care Team Providers Care Automatic Cigar Wrapper Tender Name Role Phone Jonas Evans Primary Care Provider [phone] REASON FOR VISIT Surg cancelled Encounters Encounter Location Date Provider Diagnosis Jonas Evans MD 10 [facility] [address] [place] [phone] 05/20/2025 Jonas Evans Plan Of Treatment Next Appt Details Provider Name:Jonas Ramsay ier, 08/12/2025 07:00:00 AM, [address] [place] [address], [address], [phone], Provider Name:Jonas arias, 08/18/2025 08:00:00 AM, [address] [place] [address], [address], [phone], Progress Notes * Reji TUCKERDOB: (69 yo M)Acc No.[id number]:05/20/2025 Patient: Holly SHEPARDGILDARDO Reji Barnes :1955 A ge:69 Y S ex:Male Address:[address] [place] [phone] * true * Date: Generated for Printi ng/Faxing/eTransmitting on: 0 05/24/2025 10:10 AM EDT
--- OUTSIDE RECORDS SUMMARY | 2025-05-23 04:15 | XMS_ITS ---
Author Organization Jonas Evans MD Address [address] [place] [phone] Care Team Providers Care Lbd Teacher Name Role Phone Jonas Evans Primary [...] Date Provider Diagnosis Jonas Evans MD [address] [place] [phone] 05/23/2025 Jonas Evans RBBB I45.10 ; Hypotension [...] get the stress/ test is booked at [facility] 05-24-25 at 10am Plan Of Treatment Treatment Notes Assessment Notes Hypotension due to drugs has resolved Shortness of breath will get the stress test as the preop cancelled the surgery until we get the stress/ test is booked at [facility] 05-24-25 at 10am Pending Test Test Name Order Date KATIUSKA coffey stress w fito 05/23/2025 Next Appt Details Follow Up: after stress, Mona son: Provider Name:Jonas Rudi Devendra ier, 08/12/2025 07:00:00 AM, [address] [facility], [address], [place], [place], [phone], Provider Name:Jonas Grijalva Evensloyda ier, 08/18/2025 08:00:00 AM, [address] [facility], [address], [place], [place], [phone], Progress Notes * SALVADOR Reji BarnesDOB: (69 yo M)Acc No.[id number]:05/23/2025 Progress Notes Patient: Reji QUINTERO Provider: Nohemy Evans MD :1955 A ge:69 Y S ex:Male Date:05/23/2025 Address:[address] [place] [phone] Subjective: * Chief Complaints: * 1 . BP check per Dr Evans. 2. Ortho cancelled surgery Patient needs a Stress Test. 3. Patient feeling much better off meds. * HPI: S ymptom(s): patient is a [...] D enies N ausea. * Medical History: - refused flu shot, discussed colonoscopy scheduled 2014; colonoscopy 12/27/15 - repeat 5 yrs (Dr. Sher)(2020) colonoscopy 2021 repeat in 5 years: 03/20/22 colonoscopy repeat 5 yrs ( 2026), Lymphocytosis, Xanthelasma of eyelid. * Medications: T aking Atorvastatin Calcium 40 MG Tablet TAKE 1 TABLET BY MOUTH EVERY DAY , Not-Taking/PRN Valsartan-hydroCHLOROthiazide 320-25 MG Tablet TAKE 1 TABLET BY MOUTH EVERY DAY * Allergies: N .K.D.A. Objective: * Vitals: H t: 69.5, Wt: [...] we get the stress/ test isbooked at [facility] 05-24-25 at 10am?? * Follow Up: a fter stress * * The named appointment provid er may or may not be the originator of this progress note, and it is not deemed complete until electronically signed by the appointment provider. Sign off status: Pending * Provider: Nohemy Evans MD Date: 0 05/23/2025 Generated for Nusrat baez/Christine/eTransmitting on: 0 05/24/2025 10:09 AM EDT History and Physical [...]
--- NOTE | ~2025-05-24 | NM_ITS ---
Lexiscan Myocardial perfusion study Indication: Preoperative cardiac evaluation Technique: The patient was brought in for a Lexiscan perfusion study on 05/24/2025 and was injected 0.4 mg of Lexiscan intravenously. Within a minute of this injection 35 mCi of sestamibi was given intravenously. Images were obtained using the SPECT gamma camera interlaced with the gating device. Images were obtained in supine position. Resting perfusion study was performed on 05/25/2025. Patient was administered 35 mCi of sestamibi intravenously at rest. Images were then obtained in supine position. Total DLP 73 mGy-cm. Images were processed with the software and compared side to side in short axis, horizontal long axis and vertical long axis views. Findings: Raw aquisition reviewed. The stress perfusion study showed decreased tracer uptake along the inferior wall. There is also adjacent subdiaphragmatic tracer uptake. With CT attenuation correction, there is globally reduced tracer uptake which could be technical. The gated study shows reduced LV systolic function with calculated LVEF of 43%. LV cavity is dilated in size. The gated study shows globally reduced wall thickening and contraction of segments. Resting study shows reduced tracer uptake in the inferior wall. There is adjacent subdiaphragmatic tracer uptake. Improvement with CT attenuation correction suggestive of diaphragmatic attenuation artifact. Gating at rest reveals globally reduced wall motion with ejection fraction at 47%. The findings are consistent with fixed inferior perfusion defect, no clear reversible defects. NM/NM fito perf SPECT rest & str Impression: 1. Myocardial perfusion imaging study shows no clear evidence of ischemia. Fixed appearing inferior defect possibly artifactual. Less likely prior infarct. 2. Gated LVEF is 43% during stress and 47% during rest. 3. Transient ischemic dilatation not present. EKG component of the test reported separately. Electronically signed by: Mao Hamilton MD 05/26/2025 04:04 PM EDT
--- NOTE | 2025-05-24 09:39 | CA_ITS ---
Acquisition Time: 2025-05-24 09:55:17 Total Exercise Time: 00:02:00 Test Indications: PREOP Medications: Protocol: LEXISCAN Max HR: 101 BPM 66% of Pred: 152 BPM Max BP: 138/62 mmHG Max Work Load: 1.0 METS Pharmacological stress test with Lexiscan while pt marches in chair, without any reported symptoms, with frequent PVCs, with normotensive response to injection. Nondiagnostic EKG for ichemia. In recovery, pt continued to feel good. Nuclear images pending. Test reviewed with Dr. Hamilton. Referred By: Jonas Evans Electronically Signed By: Soto Mcintosh
--- OUTSIDE RECORDS SUMMARY | 2025-05-24 10:09 | XMS_ITS | Encounter Summary ---
Author Organization [facility] Address [address] [place] [address] Drive [address] [place] [phone] Phone Care Team Providers Care Bass Fisher Name Role Phone Jonas Evans MD Primary Care Provider Imelda Alvarenga MD, MPH Unavailable [phone] José Mckoy MD Unavailable [phone] Mak Bautista MD Unavailable [phone] Encounter Details Date Type Department Care Team (Late st Contact Info) Description 02/10/2024 Procedure Pass BWF Periop 1st floor [address] [place] [address] Social History Tobacco Use Types Packs/Day Years Used Date Smoking Tobacco: Never Smokeless Tobacco: Never Alcohol Use Standard Drinks/Week Comments Yes 5 (1 standard drink = 0.6 oz pur e alcohol) Child or Family Care Answer Date Record ed Do you have problems with on e of the following making it difficult for you to work, study, or receive health care? No 01/13/2024 Education Answer Date Recorded Are you interested in more education? Not on adarsh e 12/26/2023 Are you concerned about learning? Not on file 12/26/2023 No 12/26/2023 No 12/26/2023 Food Answer Date Recorded Within the past 6 months we worried whether our food would run out before we got money to buy more. Never True 01/13/2024 Within the past 6 months the food we bought just didn't last and we didn't have enough money to get more. Never True Residential Stability Answer Date Recor ded What is your housing situation today? I have stephanie little 01/13/2024 How many times have you move d in the past 12 months? Zero (I did not move) 01/13/2024 Paying for Meds Answer Date Recorded Do you have trouble paying for medicines? No 01/13/2024 Paying Utility Bills Answer Date Record ed Do you have trouble paying your heating or elect ricity bill? No 01/13/2024 Transportation Answer Date Recorded Has the lack of transportati on kept you from medical appointments or from getting medications? No 01/13/2024 Digital Access Answer Date Recorded No 12/26/2023 No 12/26/2023 Reliable internet access at home? Not on file 12/26/2023 Device with a working camera? Not on file Intimate Partner Violence Answer Date R ecorded Are you denied basic needs s uch as food, clothing, or medical care? No 02/10/2024 In the past 12 months have y ou been in a relationship with a person who hurts, threatens, or tries to control you? No 02/10/2024 Are you denied basic needs s uch as food, clothing, or medical care? No 02/10/2024 In the past 12 months have y ou been in a relationship with a person who hurts, threatens, or tries to control you? No 02/10/2024 Sex and Gender Information Value Date Recorded Sex Assigned at Male 12/25/2023 2:33 PM EDT Legal Sex Male 2:26 PM EDT Gender Identity Male 12/25/2023 2:33 PM EDT Sexual Orientation Straight 12/25/2023 2: 33 PM EDT documented as of this encounter Plan of Treatment Not on file documented as of this encounter Visit Diagnoses Not on filedocumented in this encounter Care Teams Bass Fisher Relationship Specialty Start Date End Date Jonas Evans MD [address] [place] [address] [place] [address] PCP - General Internal Medicine 12/25/23 Imelda Alvarenga MD, MPH [address] [place] [address], [place] [address] [place] [address] [email or web address] [email or web address] Oncology 01/15/24 José Mckoy MD [address] [place], [place] [address] [place] [address] Urology 01/15/24 Mak Bautista MD [address] [place] [address] [address] [place] [address] [email or web address] Medical Oncology 01/15/24 documented as of this encounter Additional Source Comments The information contained in this document represents components of the legal health record. It is not the complete legal health record.[facility]
--- OUTSIDE RECORDS SUMMARY | 2025-05-24 10:09 | XMS_ITS | Patient Health Record ---
Author Organization [facility] Address [address] [place] [phone] Care Team Providers Care Pharmacy Operations Coordinator Name Role Phone Jonas Evans MD Primary Care Provider Jamie Pittman Unavailable [phone] Allergies No Known Allergies Reason For Referral No Information Medications Medication SIG (Take, Route, Frequency, Duration) Notes Start Date End Date Status Atorvastatin Calcium Active Valsartan-hydroCHLOROthiazi de Active Immunizations Vaccine Route Administration Date Status Comme nts Influenza Unknown 02/20/2022 Refused Influenza Unknown 06/23/2024 Refused Problems Problem Type SNOMED Code ICD Code Onset Dates Problem Status W/U Status Risk Notes Problem [id number] Encounter for screening for malignant neoplasm of colon (Z12.11) Active confirmed Problem History of adenomatous polyp of colon (003672201) History of adenomatous polyp of colon (Z86.010) Active confirmed Problem Rectal polyp (18908369) Rectal polyp (K62.1) Active confirmed Problem Screening for malignant neoplasm of rectum (096207444) Encounter for screening for malignant neoplasm of rectum (Z12.12) Active confirmed Problem 37463801 Preprocedural examination (Z01.818) Active confirmed Problem Diverticulosis of colon (526645462) Diverticulosis of colon (K57.30) Active confirmed Problem Imaging of abdomen abnormal (302697191) Abnormal MRI of the abdomen (R93.5) Active confirmed Vital Signs Temperature 97.5 degrees Fahrenheit 06/23/2024 Blood pressure diastolic 00 mm Hg 06/23/2024 Height 68 in 06/23/2024 Blood pressure systolic 000 mm Hg 06/23/2024 Weight 203 lbs 06/23/2024 BMI 30.86 kg/m2 06/23/2024 Encounters Encounter Location Date Provider Diagnosis [facility] Outpatient [address] [place], [place] [phone] 11/29/2024 Jamie Sher Abnormal abdominal C T scan R93.5 ; Personal history of adenomatous and serrated colon polyps Z86.0101 ; Diverticulosis of colon K57.30 and Internal hemorrhoids K64.8 [facility] [address] [place] [address] 06/23/2024 Jamie Sher Rectal polyp K62.1 a nd Abnormal MRI of the abdomen R93.5 [facility] [address] [place] [address] 10/01/2024 Jamie Sher Assessments Encounter Date Diagnosis (ICD Code) Assessment [...] Insured Coverage Start Date Coverage End Date [facility] [employer] [address] [place] [address] [id number] BARRY FRANCO Self - patient is the insured Medical (General) History Medical History History ICD Code Denies MD,DM,CVA,Lung disease,renal dise ase Hypertension Hyperlipidemia Screening colonoscopy 11/2015 with 2 tubu lar adenomas removed Screening colonoscopy in February of 2022 wi th a single tubular adenoma removed Prostate cancer in February of 2024 with alvin oral as below Surgical History Surgery Date(Month/Year) Prostatectomy for cancer in February of 2024 at [facility]
--- OUTSIDE RECORDS SUMMARY | 2025-05-24 10:09 | XMS_ITS | Clinical Summary ---
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 4 Active valsartan-hydroCHL OROthiazide (DIOVAN-HCT) 320-25 mg per tablet 4 Active cholecalciferol (VITAMIN D3) 25 MCG (1,000 unit) tablet Take 1,000 Units by mouth daily. Active tadalafiL (CIALIS, ADCIRCA) 20 MG tabletIndications: Erectile dysfunction after radical prostatectomy Take 1/2 (10 mg) tablet twice weekly post prostatecto my. 4 tablet 11 4 Active sildenafiL (VIAGRA) 100 mg tablet Take 1 tablet (100 mg total) by mouth daily as needed. Do not use on same day as cialis. 12 tablet 6 4 05/21/20 25 Active Problems Problem Noted Date Diagnosed Date Hypertension 01/18/2024 Hyperlipidemia 01/18/2024 Adenocarcinoma of prostate 01/15/2024 Cancer Staging:Clinical stage from 12/05/2023: cT1c, PSA: 3.6, Grade Group: 2, 12/05/23 - Unsigned Family History Medical History Relation Comments Anesthesia problems Neg Hx Social History Tobacco Use Types Packs/Day Years Used Date Smoking Tobacco: Never Smokeless Tobacco: Never Tobacco Cessation:Counseling Given: Not Answered Alcohol Use Standard Drinks/Week Comments Yes 5 [...] your housing situation today? I have stephanie sing 01/13/2024 How many times have you move [...] Orientation Straight 12/25/2023 2: 33 PM EDT Last Filed Vital Signs Vital Sign Reading Time Taken Comments Blood Pressure 161/72 02/20/2024 9:22 AM EDT Pulse 65 02/20/2024 9:22 AM EDT Temperature 36.5 C (97.7 F) 02/20/2024 9:22 AM EDT Respiratory Rate 14 02/10/2024 2:45 PM EDT Oxygen Saturation 100% 02/20/2024 9:22 AM EDT Inhaled Oxygen Concentration - - Weight 90.3 kg (199 lb) 02/20/2024 9:22 AM EDT Height 172.7 cm (5' 8 ) 02/20/2024 9:22 AM EDT Body Mass Index 30.26 02/20/2024 9:22 AM EDT Plan of Treatment Health Maintenance Due Date Last Done Comments Adult Td,Tdap Booster 1955 LIPID PANEL 1955 DEPRESSION SCREENING 1968 HEPATITIS C SCREENING 1974 PNEUMOCOCCAL VACCINES (50+ years) (1 of 2 - PCV) 1975 ZOSTER VACCINES (1 of 2) 1975 SCREENING FOR DIABETES 1991 COLOGUARD 2001 COLONOSCOPY 2001 COLORECTAL CANCER SCREENING 2001 FIT TEST 2001 FOBT 2001 SIGMOIDOSCOPY 2001 VIRTUAL COLONOSCOPY 2001 COVID-19 VACCINE (3 - 2023-2 5 season) 2024 01/11/2021, 12/14/2020 BLOOD PRESSURE 08/22/2024 02/20/2024 CREATININE LEVEL 02/09/2025 02/10/2024 POTASSIUM LEVEL 02/09/2025 02/10/2024 RSV VACCINE (1 - 1-dose 75+ series) 2031 SMOKING STATUS SCREENING (On ce After 26 Yrs) Completed 08/20/2024 HEPATITIS A VACCINES Aged Out No long er eligible based on patient's age to complete this topic HIB VACCINES Aged Out No longer eligi ble based on patient's age to complete this topic MENINGOCOCCAL VACCINES (ACWY) Aged Out No longer eligible based on patient's age to complete this topic MENINGOCOCCAL VACCINES (B) Aged Out N o longer eligible based on patient's age to complete this topic Medical Devices Not on file Procedures Procedure Name Priority Date/Time Associated Diagnosis Comments BASIC METABOLIC PANEL STAT 02/10/2024 11:58 AM EDT from Last 3 Months or Most Recently Relevant to Health Maintenance Results * (ABNORMAL) Basic metabolic panel (02/10/2024 11:58 AM EDT) SODIUM 137 136 - 145 mmol/L [facility] CHLORIDE 104 98 - 107 mmol/L [facility] POTASSIUM 4.1 3.4 - 5.0 mmol/L [facility] Comment:HEMOLYSIS_INDEX_OF_2 6,INTERPRET_WITH_CAUTION CO2 24 22 - 31 mmol/L [facility] BUN 16 6 - 23 mg/dL [facility] CREATININE 1.08 0.50 - 1.20 mg/dL [facility] GLUCOSE 166(H) 70 - 115 mg/dL [facility] CALCIUM 8.2(L) 8.6 - 10.7 mg/dL [facility] EGFR 75 >60 mL/min/1.7 3m2 [facility] Comment:Estimated glomerular filtration rate calculated using the CKD-EPI refit equation. ANION GAP 10 3 - 15 mmol/L [facility] Blood 02/10/2024 11:5 8 AM EDT 02/10/2024 12:03 PM EDT us José Mckoy MD LAB BLOOD ORDERABLES Final Re sult [facility] [address] [place] [address] from Last 3 Months or Most Recently Relevant to Health Maintenance [place] [address] [address] [place] [address] [place] [address] [place] [address] [facility] Care Teams Roof Cement And Paint Maker Helper Relationship Specialty Start Date End Date Jonas Evans MD [address] [place] [address] [place] [address] PCP - General Internal Medicine 12/25/23 Imelda Alvarenga MD, MPH [address] [place] [address], [facility] [address] [address] [email or web address] Radiation Oncology 01/15/24 José Mckoy MD [address] [place] [id number] [email or web address] Urology 01/15/24 Mak Bautista MD [address] [place] [address] [email or web address] Medical Oncology 01/15/24 Additional Source Comments The information contained in this document represents components of the legal health record. It is not the complete legal health record.[facility]
--- OUTSIDE RECORDS SUMMARY | 2025-05-24 10:10 | XMS_ITS | Patient Health Record ---
Author Organization Jonas Evans MD Address [address] [place], [place] [id number] Care Team Providers Care Size Stamper Name Role Phone Jonas Evans Primary Care Provider Allergies No Known Allergies Results Component Value Reference Range Notes PSA,Total (Free>4and<10) Reviewed date:05/27/2024 12:00:17 PM Interpretation: Performing Lab:[facility], [address] [place] [phone] Notes/Report: PSA,Total (Free>4and<10) < 0.10 0.00-4.00 ng/mL [...] ff Reviewed date:08/05/2024 12:33:38 PM Interpretation: Performing Lab:[facility], [address] [place] [phone] Notes/Report: White Blood Count 5.3 4.8-10.8 X10*3/uL [...] NRBC Abs Auto 0.000 0.0-0.012 X10*3/uL Comprehensive [place]. Panel Fa st Reviewed date:08/05/2024 12:33:18 PM Interpretation: Performing Lab:[facility], [address] [place] [phone] Notes/Report: Sodium 141 135-145 mmol/L Potassium 3.9 3.3-5.1 mmol/L Chloride 105 96-108 mmol/L Carbon Dioxide 27 22-29 mmol/L Anion Gap 13 12-20 Blood Urea Nitrogen 17 9-16 mg/dL Creatinine 0.81 0.5-1.4 mg/dL Estimated Glomerular Filt Rate > 60 NOTE: For -Swedish individuals, multiply the result by 1.210. Chronic [...] Panel Reviewed date:08/05/2024 12:33:53 PM Interpretation: Performing Lab:[facility], [address] [place] [phone] Notes/Report: Triglycerides 65 <150 mg/dL Desirable Triglyceride: [...] (Free>4and<10) Reviewed date:08/05/2024 01:13:41 PM Interpretation: Performing Lab:[facility], [address] [place] [phone] Notes/Report: PSA,Total (Free>4and<10) < 0.10 0.00-4.00 ng/mL [...] Random Reviewed date:08/05/2024 01:13:32 PM Interpretation: Performing Lab:[address] [phone] Notes/Report: Creatinine Urine 199.66 Microalbumin Urine 10.0 Microalbum/Creatinine Ratio Ur 5.0 <30 ug/mg cr Albumin/Creatinine Ratio Reference Ranges: Normal: < 30 ug/mg creatinine Microalbuminuria: 30 - 300 ug/mg creatinine Clinical Albuminuria: > 300 ug/mg creatinine Hemoglobin A1c Reviewed date:08/05/2024 12:32:53 PM Interpretation: Performing Lab:[address] [phone] Notes/Report: Hemoglobin A1c % 5.0 <6.0 % [...] average glucose, using the formula of the S5F-Nkezfer Average Glucose study (ADAG), Diabetes Care, Vol.31,#8, Apr. 2007 UA ClnCatch+Micro w/rflx Cul t Reviewed date:08/05/2024 12:34:21 PM Interpretation: Performing Lab:[address] [phone] Notes/Report: Urine, Clean Catch Color Urine Yellow Appearance Urine Clear PH 5.5 5.0-9.0 Glucose Urine UA Negative Negative mg/dL Urine Blood Negative Negative Specific [place] - Urine 1.020 1.005-1.025 Urine Protein Negative Neg-Trace mg/dL Urine Ketones Negative Negative mg/dL Nitrite Urine Negative Negative Leukocyte Esterase Urine Negative Negative RBC Urine 0-2 0-2 /HPF WBC Urine 0-5 0-5 /HPF Squamous Epithelial Cell Urine 0-2 0-2 /HPF Bacteria Urine None Seen None Seen Hyaline Casts Urine 0-2 0-2 /LPF Liver Panel Reviewed date:02/04/2025 12:28:40 PM Interpretation: Performing Lab:[facility], [address] [place] [phone] Notes/Report: Bilirubin Total 0.7 0.0-1.0 mg/dL Bilirubin Direct 0.3 0.0-0.5 mg/dL Aspartate Amino Transferase 22 5-37 U/L Alanine Aminotransferase 17 0-40 U/L Total Protein 6.7 6.5-8.0 g/dL Albumin Level 3.6 3.5-5.0 g/dL Alkaline Phosphatase 66 39-117 U/L Glucose Fasting Reviewed date:02/04/2025 12:28:14 PM Interpretation: Performing Lab:[facility], [address] [place] [phone] Notes/Report: Glucose Fasting 78 60-99 mg/dL Lipid Panel with Reflex Reviewed date:02/04/2025 12:27:58 PM Interpretation: Performing Lab:[facility], [address] [place] [phone] Notes/Report: Triglycerides 67 <150 mg/dL Desirable Triglyceride: [...] A1c Reviewed date:02/04/2025 12:28:06 PM Interpretation: Performing Lab:[facility], [address] [place] [phone] Notes/Report: Hemoglobin A1c % 5.0 <6.0 % [...] average glucose, using the formula of the Z8M-Ajaheng Average Glucose study (ADAG), Diabetes Care, Vol.31,#8, Apr. 2007 Rito Green Gel Reviewed date:05/27/2024 12:27:50 PM Interpretation: Performing Lab:[facility], [address] [place] [phone] Notes/Report: Rito Emanuel See Note Specimen held untested for 24 hours; Call to request Chemistry testing. Rito Bradford Reviewed date:02/04/2025 12:27:50 PM Interpretation: Performing Lab:[facility], [address] [place] [phone] Notes/Report: Rito Bradford See Note Specimen held untested for 24 hours; Call to request Chemistry testing. Reason For Referral No Information Medications Medication [...] Problem Status W/U Status Risk Notes Problem 96357224 Lymphocytosis (D72.820) Active confirm ed Problem 890908759 Tubular adenoma of colon (D12.6) Active confirmed Problem 28510397 Essential hypert ension (I10) Active confirmed Problem 4882222 Prediabetes (R73.09) Active confirmed Problem 54456490 RBBB (I45.10) Active confirmed Problem 850858039 History of prost ate cancer (Z85.46) Active confirmed Problem 482936550 Rising PSA level (R97.20) Active confirmed Problem 977902889 Pure hypercholesterolemia (E78.00) Active confirmed Vital Signs Blood pressure diastolic 70 mm Hg 05/23/2025 Height 69.5 in 05/23/2025 Blood pressure systolic 142 mm Hg 05/23/2025 Weight 183 lbs 05/23/2025 BMI 26.63 kg/m2 05/23/2025 Encounters Encounter Location Date Provider Diagnosis Jonas Evans MD [address] [place] [id number] 05/27/2024 Jonas Evans Rising PSA level R97 .20 Jonas Evans MD [address] [place] [id number] 08/05/2024 Jonas Evans Blood tests for rout ine general physical examination Z00.00 ; Essential hypertension I10 ; Prediabetes R73.09 ; Pure hypercholesterolemia E78.00 ; Lymphocytosis D72.820 and Rising PSA level R97.20 Jonas Evans MD [address] [place] [id number] 02/04/2025 Jonas Evans Prediabetes R73.09 a nd Pure hypercholesterolemia E78.00 Jonas Evans MD [address] [place] [id number] 05/23/2025 Jonas Evans RBBB I45.10 ; Hypote nsion due to drugs I95.2 and Shortness of breath R06.02 Jonas Evans MD [address] [id number] 08/12/2024 Jonas Evans History of prostate cancer Z85.46 ; Annual physical exam Z00.00 ; Essential hypertension I10 ; Prediabetes R73.09 ; Pure hypercholesterolemia E78.00 ; Colon cancer screening Z12.11 and Depression screening Z13.31 Jonas Evans MD [address] [place] [id number] 02/10/2025 Jonas Evans Essential hypertensi on I10 ; Prediabetes R73.09 and Pure hypercholesterolemia E78.00 Jonas Evans MD [address] [place] [id number] 05/20/2025 Jonas Evans Hypotension due to d rugs I95.2 and Abnormal weight loss R63.4 Jonas Evans MD [address] [id number] 04/26/2025 Jonas Evans MD [address] [id number] 05/20/2025 Jonas Evans Assessments Encounter Date Diagnosis (ICD Code) Assessment Notes Treatment Notes Treatment Clinical Notes Section Notes 05/27/2024 Rising PSA level (IC D-10 - R97.20) 08/05/20[address] tests [address] ine general physical examination (ICD-10 - Z00.00) 08/05/2024 Essential hypertensi on (ICD-10 - I10) 02/04/2025 Prediabetes (ICD-10 - R73.09) 05/23/2025 RBBB (ICD-10 - I45.10) 05/23/2025 Hypotension due to d rugs (ICD-10 - I95.2) has resolved 08/12/2024 History of prostate cancer (ICD-10 - Z85.46) doing great after surgery 08/12/2024 Annual physical exam (ICD-10 - Z00.00) labs reviewed and discussed with patient 02/10/2025 Essential hypertensi on (ICD-10 - I10) good control, will continue current regiment 05/20/2025 Hypotension due to d rugs (ICD-10 - I95.2) 05/20/2025 Abnormal weight loss (ICD-10 - R63.4) not clear as to why this is happening but even if there is something wrong he wants to have a good hip so will hold off evaluation until after his hip surgery 08/05/2024 Prediabetes (ICD-10 - R73.09) 02/04/2025 Pure hypercholesterolemia (ICD-10 - E78.00) 05/23/2025 Shortness of breath (ICD-10 - R06.02) will get the stress test as the preop cancelled the surgery until we get the stress/ test [place] [facility] at 10[place] 08/12/2024 Essential hypertensi on (ICD-10 - I10) well controlled, will continue current regiment 02/10/2025 Prediabetes (ICD-10 - R73.09) well controlled, no need for medication at thios time, will continue to monitor 08/05/2024 Pure hypercholesterolemia (ICD-10 - E78.00) 08/12/2024 Prediabetes (ICD-10 - R73.09) stable, no need for medication at this time 02/10/2025 Pure hypercholesterolemia (ICD-10 - E78.00) doing well on meds, will continue current regiment 08/05/2024 Lymphocytosis (ICD-1 0 - D72.820) 08/12/2024 Pure hypercholesterolemia (ICD-10 - E78.00) stable, will contiue current regiment 08/05/2024 Rising PSA level (IC D-10 - R97.20) 08/12/2024 Colon cancer screeni ng (ICD-10 - Z12.11) guaiac negative 08/12/2024 Depression screening (ICD-10 - Z13.31) negative screen 05/20/2025 Other the shortness of breath doesn t sound cardiac. seems like he just gets weak from the hypotension. will recheck in 3 days Plan Of Treatment Pending Test Test Name Order Date Electrocardiogram (EKG) 03/05/2019 Electrocardiogram (EKG) 01/11/2016 Electrocardiogram (EKG) 02/09/2024 Electrocardiogram (EKG) 02/07/2017 Electrocardiogram (EKG) 02/19/2018 MRA BRAIN NO CONTRAST 03/05/2019 CA lexiscan stress w fito 05/23/2025 Next Appt Details Provider Name:Jonasgalina Ramsay ier, 08/12/2025 07:00:00 AM, [address] [place] [address], [address], [place], [phone], Provider Name:Jonas Grijalva Devendra ier, 08/18/2025 08:00:00 AM, [address] [place] [address], [address], [place], [place], [phone], Insurance Providers Payer Name Payer Address Payer Phone Subscriber Number Group Number Insured Name Patient Relationship to Insured Coverage Start Date Coverage End Date [employer] [address] [place], [place] [id number] Reji Tucker Self - patient is the insured Medical (General) History Medical History History ICD Code 10/30/12 - refused flu shot discussed colonoscopy schedu led 2014; colonoscopy 12/27/15 - repeat 5 yrs (Dr. Sher)(2020) colonoscopy 2021 repeat in 5 years: 03/20/22 colonoscopy repeat 5 yrs ( 2026) Lymphocytosis Xanthelasma of eyelid
--- OUTSIDE RECORDS SUMMARY | 2025-05-24 10:10 | XMS_ITS | Encounter Summary ---
Author Organization [facility] Address [address] [place] [address] [place] [address] Phone Care Team Providers Care Associate Designer Name Role Phone Jonas Evans MD Primary Care Provider Imelda Alvarenga MD, MPH Unavailable [phone] José Mckoy MD Unavailable [phone] Mak Bautista MD Unavailable Encounter Details Date Type Department Care Team (Late st Contact Info) Description 01/19/2024 Ancillary Orders Outside Imaging Mak Bautista MD [address] [place] [address] [email or web address] Social History Tobacco Use Types Packs/Day Years Used Date Smoking Tobacco: Never Assessed Child or Family Care Answer Date Record [...] with a working camera? Not on file Sex and Gender Information Value Date Recorded Sex Assigned at Male 12/25/2023 2:33 PM EDT Legal Sex Male 2:26 PM EDT Gender Identity Male 12/25/2023 2:33 PM EDT Sexual Orientation Straight 12/25/2023 2: 33 PM EDT documented as of this encounter Plan of Treatment Not on file documented as of this encounter Results * US Pelvis Outside (No Interpretation) (12/05/2023 12:00 AM EST) Other Narrative RUFINO_VIVIENH - 01/19/2024 7:42 AM EDT This study is for PACS storage only and not for interpretation. us Mak Bautista MD IMG OUTSIDE IMAGING W/O UT INTERPRETATION Final Result PERCIPIO[facility] documented in this encounter Visit Diagnoses Not on filedocumented in this encounter Care Teams Associate Designer Relationship Specialty Start Date End Date Jonas Evans MD [address] [place] [address] [place] [address] PCP - General Internal Medicine 12/25/23 Imelda Alvarenga MD, MPH [address] [place] [address] [address] [place] [address] [email or web address] [email or web address] Oncology 01/15/24 José Mckoy MD [address] [place], [place] [address] [place] [address] Urology 01/15/24 Mak Bautista MD [address] [place] [address] [address] [place] [address] [email or web address] Medical Oncology 01/15/24 documented as of this encounter Additional Source Comments The information contained in this document represents components of the legal health record. It is not the complete legal health record.[facility]
--- OUTSIDE RECORDS SUMMARY | 2025-05-24 10:10 | XMS_ITS | Encounter Summary ---
Author Organization [facility] Address [address] [place] [address] [place] [address] Phone Care Team Providers Care [employer] Name Role Phone Jonas Evans MD Primary Care Provider Imelda Alvarenga MD, MPH Unavailable [phone] José Mckoy MD Unavailable [phone] Mak Bautista MD Unavailable [phone] Encounter Details Date Type Department Care Team (Late st Contact Info) Description 01/19/2024 Ancillary Orders Outside Imaging Mak Bautista MD [address] [place] [phone] [email or web address] Social History Tobacco Use Types Packs/Day Years [...] as of this encounter Results * US Abdomen Outside (No Interpretation) (11/28/2023 12:00 AM EST) Other Narrative RUFINO_VIVIENH - 01/19/2024 7:43 AM EDT This study is for PACS storage only and not for interpretation. us Mak Bautista MD IMG OUTSIDE IMAGING W/O UT INTERPRETATION Final Result [facility]CIPIO[facility] documented in this encounter Visit Diagnoses Not on filedocumented in this encounter Care Teams [employer] Relationship Specialty Start Date End Date Jonas Evans MD [address] [place] [address] [place] [address] PCP - General Internal Medicine 12/25/23 Imelda Alvarenga MD, MPH [address] [place] [address] [address] [place] [address] [email or web address] Radiation Oncology 01/15/24 José Mckoy MD [address] [place], [place] [address] [place] [address] Urology 01/15/24 Mak Bautista MD [address] [place] [address] 11 [place] [address] [email or web address] Medical Oncology 01/15/24 documented as of this encounter Additional Source Comments The information contained in this document represents components of the legal health record. It is not the complete legal health record.[facility]
== END ==
LOC: HO.CARD 09:33
PROVIDERS: Visit Provider Internal Medicine
DX: Z01.810 Encounter for preprocedural cardiovascular examination (principal); I45.10 Unspecified right bundle-branch block
CPT/HCPCS: 78452; 93017; A9500; J0280; J2785

== ENCOUNTER → 2025-05-24 09:39 | Outpatient (BNV) | payer BC, SELFPAY | DX: Z01.810 Encounter for preprocedural cardiovascular examination (principal) | CPT/HCPCS: 78452; 93016; 93018 ==

== ENCOUNTER 2025-05-31 12:34 | Outpatient (AMB) | payer BC, SELFPAY ==
--- NOTE | 2025-05-31 12:51 | A.OFFVIS_ITS ---
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 Apparently he was supposed to up for hip surgery last week but it was canceled. During the preoperative assessment, his blood pressure is apparently in the 80s. Per patient, he has lost about 30 lb or so weight in the last few months. He was on a combination of valsartan/HCTZ and after the low blood pressure recordings, it was stopped. Home blood pressures are in the 130s. Currently, blood pressure is slightly higher than that. Within limits of his activity, he has got no clear-cut cardiac symptoms. However, activity is limited because of hip pain. However, he can still go upstairs extra without any major issues. [facility] Medical History (Updated 05/31/25 @ 13:25 by Mao Hamilton MD) BPH (benign prostatic hyperplasia) Prostate cancer HLD (hyperlipidemia) HTN (hypertension) Surgical History Hx of prostatectomy Hx of prostate biopsy H/O colonoscopy Family History (Updated 05/31/25 @ 13:00 by Loretta Iraheta) Mother CHF (congestive heart failure) Father No problems noted. Social History Household Members: Spouse Are you a primary rn complex care to a significant other at home: No Do you presently have visiting nurse or other home services: No Alcohol intake: current Alcohol intake frequency: holidays/special occasions only Patient Tobacco Use Status: Never used Tobacco Review of Systems Const Denies weakness ENT Reports dizziness Card Denies chest pain, Denies chest pain with activity, Denies syncope, Denies rapid heart rate, Denies pedal edema, Denies edema, Denies leg edema, Denies lightheadedness, Denies palpitations, Reports dyspnea, Denies dyspnea on exertion and Denies orthopnea Resp Denies cough, Reports dyspnea and Denies dyspnea on exertion GI Denies hematochezia and Denies change in stool character Musc Denies abnormal gait, Denies muscle cramps, Denies muscle weakness, Denies numbness, Denies radiating pain into limb and Denies tingling Neuro Denies abnormal gait, Reports dizziness, Denies syncope, Denies numbness, Denies tingling and Denies weakness Endo Denies palpitations Physical Exam Vital Signs: Last Vital Signs Pulse 73 05/31/25 12:52 BP 148/70 H 05/31/25 12:52 BMI result Body Mass Index 29.5 Const General: comfortable and no acute distress Orientation/consciousness: patient oriented x3 HEENT Other: Unremarkable Head: Yes normal to inspection Neck Neck: Yes normal visual inspection Chest Chest palpation & inspection: normal inspection of the chest Resp Auscultation: clear to auscultation bilaterally Cardio Palpation: normal PMI Heart sounds: S1 normal heart sound present, S2 normal heart sound present, no gallops, no murmurs and no rubs GI Palpation (GI): Soft to palpation Back/Spine/Pelvis Other: unremarkable Skin General skin exam: no rashes or lesions noted Neuro General: patient oriented x3 Extrem General: Yes normal to inspection Psych Mental Status: mental status grossly normal Office Procedures EKG Details: EKG with underlying sinus rhythm at 73/Min; right bundle-branch block and left posterior fascicular block. Bifascicular block. [id number], Complete Assessment & Plan Assessment & Plan (1) Preoperative cardiovascular examination: Code(s): Z01.810 - Encounter for preprocedural cardiovascular examination Category: Medical (2) Bifascicular block: Code(s): I45.2 - Bifascicular block Category: Medical (3) Abnormal myocardial perfusion study: Code(s): R94.39 - Abnormal result of other cardiovascular function study Category: Medical (4) HTN (hypertension): Code(s): I10 - Essential (primary) hypertension Category: Medical Plan Myocardial perfusion imaging study without any ischemia. Fixed defect, thought to be artifactual and less likely prior infarct. Gated LVEF 43% during stress and 47% during rest. EKG with bifascicular block as above. Findings discussed with patient. For further workup, we will plan on an echocardiogram for cardiac function as there is evidence of LV dysfunction on the stress test. We will also get a coronary CTA for more definitive assessment. With regard to the blood pressures self, home pressures are in the 130s. He can continue to monitor that. He may need a smaller dose of blood pressure medication. Per PCP note, he was on valsartan/HCTZ 320/25 mg daily, however, had hypotension with this into the 80s. Hence may need a smaller dose, to be decided. Follow-up after testing. Discussion Notes During the consultation, we discussed the patient's hypertension management, emphasizing the importance of regular blood pressure monitoring and potential medication adjustments due to weight loss. We also reviewed the patient's right bundle branch block, which is currently asymptomatic, and the need for regular monitoring to detect any changes. The patient's history of prostate cancer was acknowledged, with a plan for continued routine follow-up as per oncological guidelines. Patient was informed and verbally consented to the use of an ambient scribe for clinic note documentation during this visit. Orders: Orders CT Cardiac Coronary Angio Today I25.10 - Atherosclerotic heart disease of [place] coronary artery without angina pectoris, I45.2 - Bifascicular block CA echo transthoracic complete Today I45.2 - Bifascicular block Basic Metabolic Panel Today I45.2 - Bifascicular block Patient Instructions: - Monitor blood pressure regularly at home. - Report any significant changes in blood pressure to your healthcare provider. Coding Level of Care Code New Pt Level 4 (32231) Complex EM visit Add On G2211 Diagnoses Preoperative cardiovascular examination Z01.810 Bifascicular block I45.2 Abnormal myocardial perfusion study R94.39 HTN (hypertension) I10 CPT Codes EKG - CPT: 70602-Bygisqzopmotccopq, Complete ([id number])
[2025-05-31 12:52] VITALS: BP 148/70; PULSE 73; BMI 29.5
--- OUTSIDE RECORDS SUMMARY | 2025-05-31 13:50 | XMS_ITS | Encounter Summary ---
Author Organization [facility] Address [address] [place] [address] [address] [place] [address] Phone Care Team Providers Care Laboratory Monitor Name Role Phone Jonas Evans MD Primary Care Provider Imelda Alvarenga MD, MPH Unavailable [phone] José Mckoy MD Unavailable Mak Bautista MD Unavailable Encounter Details Date Type Department Care Team (Late st Contact Info) Description 02/10/2024 Procedure Pass BWF Periop 1st floor [address] [place] [address] Social History Tobacco Use Types Packs/Day Years [...] on filedocumented in this encounter Care Teams Laboratory Monitor Relationship Specialty Start Date End Date Jonas Evans MD [address] [place] [address] [place] [address] PCP - General Internal Medicine 12/25/23 Imelda Alvarenga MD, MPH [address] [place] [address], [place] [address] [place] [address] [email or web address] Radiation Oncology 01/15/24 José Mckoy MD [address] [place], [place] [address] [place] [address] Urology 01/15/24 Mak Bautista MD [address] [place] [address] 11 [place] [address] [email or web address] Medical Oncology 01/15/24 documented as of this encounter Additional Source Comments The information contained in this document represents components of the legal health record. It is not the complete legal health record.[facility]
--- OUTSIDE RECORDS SUMMARY | 2025-05-31 13:50 | XMS_ITS | Clinical Summary ---
Author Organization [facility] Address [address] [place] [address] [place] [address] Phone Care Team Providers Care Golf Shoe Spike Assembler Name Role Phone Jonas Evans MD Primary Care Provider Imelda Alvarenga MD, MPH Unavailable [phone] José Mckoy MD Unavailable [phone] Mak Bautista MD Unavailable [phone] Allergies No known active allergies Medications atorvastatin [...] EDT) SODIUM 137 136 - 145 mmol/L [facility] CHLORIDE 104 98 - 107 mmol/L [facility] POTASSIUM 4.1 3.4 - 5.0 mmol/L [facility] Comment:HEMOLYSIS_INDEX_OF_2 6,INTERPRET_WITH_CAUTION CO2 24 22 - 31 mmol/L [facility] BUN 16 6 - 23 mg/dL [facility] CREATININE 1.08 0.50 - 1.20 mg/dL [facility] GLUCOSE 166(H) 70 - 115 mg/dL [facility] CALCIUM 8.2(L) 8.6 - 10.7 mg/dL [facility] EGFR 75 >60 mL/min/1.7 3m2 [facility] Comment:Estimated glomerular filtration rate calculated using the CKD-EPI refit equation. ANION GAP 10 3 - 15 mmol/L [facility] Blood 02/10/2024 11:5 8 AM EDT 02/10/2024 12:03 PM EDT us José Mckoy MD LAB BLOOD ORDERABLES Final Re sult [facility] [address] [place] [address] from Last 3 Months or Most Recently Relevant to Health Maintenance [place] [address] [place] [address] [place] [address] [place] [address] [facility] Care Teams Golf Shoe Spike Assembler Relationship Specialty Start Date End Date Jonas Evans MD [address] [place] [address] [place] [address] PCP - General Internal Medicine 12/25/23 Imelda Alvarenga MD, MPH [address] [place] [address], [facility]- [address] [address] [email or web address] Radiation Oncology 01/15/24 José Mckoy MD [address] [place] [address] [email or web address] Urology 01/15/24 Mak Bautista MD [address] [place] [address] [email or web address] Medical Oncology 01/15/24 Additional Source Comments The information contained in this document represents components of the legal health record. It is not the complete legal health record.[facility]
--- OUTSIDE RECORDS SUMMARY | 2025-05-31 13:50 | XMS_ITS | Encounter Summary ---
Author Organization [facility] Address [address] [place] [address] [place] [address] Phone Care Team Providers Care Stevedoring Superintendent Name Role Phone Jonas Evans MD Primary Care Provider Imelda Alvarenga MD, MPH Unavailable [phone] José Mckoy MD Unavailable [phone] Mak Bautista MD Unavailable [phone] Encounter Details Date Type Department Care Team (Late st Contact Info) Description 01/19/2024 Ancillary Orders Outside Imaging Mak Bautista MD [address] [place] [address] [email or web address] Social History Tobacco Use Types Packs/Day [...] on filedocumented in this encounter Care Teams Stevedoring Superintendent Relationship Specialty Start Date End Date Jonas Evans MD [address] [place] [address] [place] [address] PCP - General Internal Medicine 12/25/23 Imelda Alvarenga MD, MPH [address] [place] [address] [address] [place] [address] [email or web address] [email or web address] Oncology 01/15/24 José Mckoy MD [address] [place], [place] [address] [place] [address] Urology 01/15/24 Mak Bautista MD [address] [place] [address] 11 [place] [address] [email or web address] Medical Oncology 01/15/24 documented as of this encounter Additional Source Comments The information contained in this document represents components of the legal health record. It is not the complete legal health record.[facility]
--- OUTSIDE RECORDS SUMMARY | 2025-05-31 13:50 | XMS_ITS | Encounter Summary ---
Author Organization [facility] Address [address] [place] [address] [place] [address] Phone Care Team Providers Care Lamp Inspector Name Role Phone Jonas Evans MD Primary Care Provider Imelda Alvarenga MD, MPH Unavailable [phone] José Mckoy MD Unavailable [phone] Mak Bautista MD Unavailable Encounter Details Date Type Department Care Team (Late st Contact Info) Description 01/19/2024 Ancillary Orders Outside Imaging Mak Bautista MD [address] [place] [address] [email or web address] Social History Tobacco Use Types Packs/Day Years [...] on filedocumented in this encounter Care Teams Lamp Inspector Relationship Specialty Start Date End Date Jonas Evans MD [address] [place] [address] [place] [address] PCP - General Internal Medicine 12/25/23 Imelda Alvarenga MD, MPH [address] [place] [address] [address] [place] [address] [email or web address] Radiation Oncology 01/15/24 José Mckoy MD [address] [place], [place] [address] [place] [address] Urology 01/15/24 Mak Bautista MD [address] [place] [address] 11 [place] [address] [email or web address] Medical Oncology 01/15/24 documented as of this encounter Additional Source Comments The information contained in this document represents components of the legal health record. It is not the complete legal health record.[facility]
== END 2025-05-31 13:28 | disposition home or self-care (01) ==
PROVIDERS: Family Provider Internal Medicine; Visit Provider Internal Medicine
DX: Z01.810 Encounter for preprocedural cardiovascular examination (principal); I45.2 Bifascicular block; R94.31 Abnormal electrocardiogram [ECG] [EKG]; I10 Essential (primary) hypertension
CPT/HCPCS: 93010; 99214

== ENCOUNTER → 2025-05-31 12:34 | Outpatient (BNVA) | payer BC, SELFPAY | PROVIDERS: Visit Provider Internal Medicine | DX: Z01.810 Encounter for preprocedural cardiovascular examination (principal); I10 Essential (primary) hypertension; I45.2 Bifascicular block | CPT/HCPCS: 93005 ==

== ENCOUNTER → 2025-07-18 10:34 | Outpatient (REF) | payer BC, SELFPAY ==
--- OUTSIDE RECORDS SUMMARY | 2024-05-27 04:30 | XMS_ITS ---
Author Organization Jonas Evans MD Address [address] [place] [phone] Care Team Providers Care Bessemer Regulator Name Role Phone Jonas Evans Primary Care Provider Results Component Value Reference Range Notes PSA,Total (Free>4and<10) Reviewed date:05/27/2024 12:00:17 PM Interpretation: Performing Lab:[facility], [address] [place] [phone] Notes/Report: PSA,Total (Free>4and<10) < 0.10 0.00-4.00 ng/mL A Free PSA was not performed: The percentage of Free PSA can be used to enhance the differentiation of prostate cancer from benign prostatic disease in subjects whose PSA levels are between 4.0 and 10.0 ng/mL. For subjects whose PSA levels are below 4.0 or above 10.0 ng/mL, the risk of prostate cancer is determined on the basis of the PSA alone. Therefore the % Free PSA is recommended only for those subjects whose PSA levels are between 4.0 and 10.0 ng/mL. PSA methodology: [place] Alinity i Chemiluminescent Microparticle Immunoassay (CMIA) REASON FOR VISIT PSA Encounters Encounter Location Date Provider Diagnosis Jonas Evans MD [address] [place] [phone] 05/27/2024 Jonas Evans Rising PSA level R97.20 Assessments Encounter Date Diagnosis (ICD Code) Assessment Notes Treatment Notes Treatment Clinical Notes Section Notes 05/27/2024 Rising PSA level (ICD-10 - R97.20) Plan Of Treatment Next Appt Details Provider Name:Jonas Ramsay ier, 08/12/2025 07:00:00 AM, [address], [address], [place], [place], [phone], Provider Name:Jonas Ramsay ier, 08/18/2025 08:00:00 AM, [address], [address], [place], [phone], Progress Notes * Reji TUCKERDOB: (70 yo M)Acc No.[id number]:05/27/2024 Progress Note Patient: Reji QUINTERO Provider: Nohemy Evans MD :1955 A ge:68 Y S ex:Male Date:05/27/2024 Address:[address] [place], [place] [id number] Subjective: * Chief Complaints: * 1 . PSA. * Medical History: Objective: * Vitals: Assessment: * Assessment: 1. R ising PSA level - R97.20 (Primary) Plan: * Treatment: * Procedure Codes: 3 6415 VENIPUNCT, ROUTINE* * * The named appointment provid er may or may not be the originator of this progress note, and it is not deemed complete until electronically signed by the appointment provider. Sign off status: Pending * Provider: Nohemy Evans MD Date: 0 05/27/2024 Generated for Nusrat baez/Christine/eTransmitting on: 1 12:36 PM EDT
--- OUTSIDE RECORDS SUMMARY | 2024-08-05 03:00 | XMS_ITS ---
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 Name Role Phone Jonas Evans Primary Care Provider Results Component Value Reference Range Notes Complete Blood Count Auto Di ff Reviewed date:08/05/2024 12:33:38 PM Interpretation: Performing Lab:[facility], [address] [place] [phone] Notes/Report: White Blood Count 5.3 4.8-10.8 X10*3/uL Red Blood Count 4.41 4.60-5.80 X10*6/uL Hemoglobin 14.1 14.0-18.0 g/dl Hematocrit 42.5 42.0-52.0 % Mean Corpuscular Volume 96.4 80.0-98.0 fL Mean Corpuscular Hemoglobin 32.0 27.0-33.0 pg Mean Corpuscular HGB Conc 33.2 31.0-36.0 g/dl Red Cell Distribution Width 12.6 11.0-16.0 % Platelet Count 238 160-400 X10*3/uL Mean Platelet Volume 10.6 9.4-12.4 fL Neutrophils Percent Auto 41.4 45-73 % Imm Gran Pct Auto 0.2 0.0-0.4 % Lymphocytes Percent Auto 44.3 20-40 % Monocytes Percent Auto 11.2 2-11 % Eosinophils Percent Auto 2.1 0-4 % Basophils Percent Auto 0.8 0-2 % NRBC Pct Auto 0.0 0.0-0.2 /100WBC Neutrophils Absolute Auto 2.2 2.0-8.3 x10*3/u L Imm Gran Abs Auto 0.01 0.00-0.03 X10*3/uL Lymphocytes Absolute Auto 2.3 1.2-4.9 X10*3/u L Monocytes Absolute Auto 0.6 0.1-1.2 X10*3/uL Eosinophils Absolute Auto 0.1 0.0-0.4 X10*3/u L Basophils Absolute Auto 0.0 0.0-0.2 X10*3/uL NRBC Abs Auto 0.000 0.0-0.012 X10*3/uL Comprehensive Phillips. Panel Fa st Reviewed date:08/05/2024 12:33:18 PM Interpretation: Performing Lab:[address] [phone] Notes/Report: Sodium 141 135-145 mmol/L Potassium 3.9 3.3-5.1 mmol/L Chloride 105 96-108 mmol/L Carbon Dioxide 27 22-29 mmol/L Anion Gap 13 12-20 Blood Urea Nitrogen 17 9-16 mg/dL Creatinine 0.81 0.5-1.4 mg/dL Estimated Glomerular Filt Rate > 60 NOTE: For -[place] individuals, multiply the result by 1.210. Chronic Kidney Disease: Estimated GFR < 60 mL/min/1.73m2 Severe Kidney Disease: Estimated GFR < 15 mL/min/1.73m2 Glucose Fasting 98 60-99 mg/dL Calcium 8.5 8.4-10.2 mg/dL Bilirubin Total 1.0 0.0-1.0 mg/dL Aspartate Amino Transferase 22 5-37 U/L Alanine Aminotransferase 20 0-40 U/L Total Protein 6.9 6.5-8.0 g/dL Albumin Level 3.7 3.5-5.0 g/dL Alkaline Phosphatase 56 39-117 U/L Lipid Panel Reviewed date:08/05/2024 12:33:53 PM Interpretation: Performing Lab:[facility], [address] [place] [phone] Notes/Report: Triglycerides 65 <150 mg/dL Desirable Triglyceride: less than 150 mg/dL Borderline High Triglyceride 150-199 mg/dL High Triglyceride: 200-499 mg/dL Very High Triglyceride: greater than or equal to 5OO mg/dL Cholesterol 181 <200 mg/dL Desirable Cholesterol: less than 200 mg/dL Borderline High Cholesterol: 200-239 mg/dL High Cholesterol: greater than 239 mg/dL LDL Cholesterol Calculated 65 <100 mg/dL Desirable LDL: less than 100 mg/dL Near Optimal/Above Optimal LDL: 110-129 mg/dL Borderline High LDL: 130-159 mg/dL High LDL: 160-189 mg/dL Very High LDL: greater than or equal to 190 mg/dL HDL Cholesterol 103 >40 mg/dL Desirable HDL: greater than 40 mg/dL Note: This HDL assay may give artificially low results in patients with liver disease. PSA,Total (Free>4and<10) Reviewed date:08/05/2024 01:13:41 PM Interpretation: Performing Lab:[address] [phone] Notes/Report: PSA,Total (Free>4and<10) < 0.10 0.00-4.00 ng/mL [...] Prescott Alinity i Chemiluminescent Microparticle Immunoassay (CMIA) Microalbumin, Random Reviewed date:08/05/2024 01:13:32 PM Interpretation: Performing Lab:[facility], [address] [place] [phone] Notes/Report: Creatinine Urine 199.66 Microalbumin Urine 10.0 Microalbum/Creatinine Ratio Ur 5.0 <30 ug/mg cr Albumin/Creatinine Ratio Reference Ranges: Normal: < 30 ug/mg creatinine Microalbuminuria: 30 - 300 ug/mg creatinine Clinical Albuminuria: > 300 ug/mg creatinine Hemoglobin A1c Reviewed date:08/05/2024 12:32:53 PM Interpretation: Performing Lab:[address] [phone] Notes/Report: Hemoglobin A1c % 5.0 <6.0 % Hemoglobin A1C Reference Range Adults: 4.8 - 6.0 % Non diabetic: < 6.0 % Goal: < 7.0 % Additional Action Suggested: > 8.0 % Note: Hemoglobin A1c results are invalid for patients with abnormal amounts of HbF. Blood transfusions may impact the HbA1c concentration in the patient sample. Estimated Average Glucose 97 eAG = Estimated average glucose which is %A1C expressed as average glucose, using the formula of the [id number] Average Glucose study (ADAG), Diabetes Care, Vol.31,#8, Apr. 2007 UA ClnCatch+Micro w/rflx Cul t Reviewed date:08/05/2024 12:34:21 PM Interpretation: Performing Lab:[facility], [address] [place] [phone] Notes/Report: Urine, Clean Catch Color Urine Yellow Appearance Urine Clear PH 5.5 5.0-9.0 Glucose Urine UA Negative Negative mg/dL Urine Blood Negative Negative Specific [place] - Urine 1.020 1.005-1.025 Urine Protein Negative Neg-Trace mg/dL Urine Ketones Negative Negative mg/dL Nitrite Urine Negative Negative Leukocyte Esterase Urine Negative Negative RBC Urine 0-2 0-2 /HPF WBC Urine 0-5 0-5 /HPF Squamous Epithelial Cell Urine 0-2 0-2 /HPF Bacteria Urine None Seen None Seen Hyaline Casts Urine 0-2 0-2 /LPF REASON FOR VISIT yearly fasting labs Encounters Encounter Location Date Provider Diagnosis Jonas Evans MD [address] [place], [place] [phone] 08/05/2024 Jonas Evans Blood tests for rout ine general physical examination Z00.00 ; Essential hypertension I10 ; Prediabetes R73.09 ; Pure hypercholesterolemia E78.00 ; Lymphocytosis D72.820 and Rising PSA level R97.20 Assessments Encounter Date Diagnosis (ICD Code) Assessment Notes Treatment Notes Treatment Clinical Notes Section Notes 08/05/20[address] tests [address] ine general physical examination (ICD-10 - Z00.00) 08/05/2024 Essential hypertensi on (ICD-10 - I10) 08/05/2024 Prediabetes (ICD-10 - R73.09) 08/05/2024 Pure hypercholesterolemia (ICD-10 - E78.00) 08/05/2024 Lymphocytosis (ICD-1 0 - D72.820) 08/05/2024 Rising PSA level (IC D-10 - R97.20) Plan Of Treatment Next Appt Details Provider Name:Jonas Ramsay ier, 08/12/2025 07:00:00 AM, [address], [address], [place], [place], [phone], Provider Name:Jonas Ramsay ier, 08/18/2025 08:00:00 AM, [address], [address], [place], [place], [phone], Progress Notes * Reji TUCKERDOB: (70 yo M)Acc No.[id number]:08/05/2024 Progress Note Patient: Reji QUINTERO Provider: Nohemy Evans MD :1955 A ge:69 Y S ex:Male Date:08/05/2024 Address:[address] [place], [place] [id number] Subjective: * Chief Complaints: * 1 . Yearly fasting labs. * Medical History: Objective: * Vitals: Assessment: * Assessment: 1. B lood tests for routine general physical examination - Z00.00 (Primary) 2 .?Essential hypertension - I10 3 . P rediabetes - R73.09 4 .?Pure hypercholesterolemia - E78.00 5 . L ymphocytosis - D72.820 6 . R ising PSA level - R97.20 Plan: * Treatment: 2. E ssential hypertension L AB: Complete Blood Count Auto Diff (Collection Date & Time - 08/05/2024 07:00 AM) L AB: Comprehensive Phillips. Panel Fast (Collection Date & Time - 08/05/2024 07:00 AM) L AB: Lipid Panel (Collection Date & Time - 08/05/2024 07:00 AM) L AB: PSA,Total (Free>4and<10) (Collection Date & Time - 08/05/2024 07:00 AM) L AB: Microalbumin, Random (Collection Date & Time - 08/05/2024 07:00 AM) L AB: Hemoglobin A1c (Collection Date & Time - 08/05/2024 07:00 AM) L AB: UA ClnCatch+Micro w/rflx Cult (Collection Date & Time - 08/05/2024 07:00 AM) 3. P rediabetes L AB: Complete Blood Count Auto Diff (Collection Date & Time - 08/05/2024 07:00 AM) L AB: Comprehensive Phillips. Panel Fast (Collection Date & Time - 08/05/2024 07:00 AM) L AB: Lipid Panel (Collection Date & Time - 08/05/2024 07:00 AM) L AB: PSA,Total (Free>4and<10) (Collection Date & Time - 08/05/2024 07:00 AM) L AB: Microalbumin, Random (Collection Date & Time - 08/05/2024 07:00 AM) L AB: Hemoglobin A1c (Collection Date & Time - 08/05/2024 07:00 AM) L AB: UA ClnCatch+Micro w/rflx Cult (Collection Date & Time - 08/05/2024 07:00 AM) 4. P ure hypercholesterolemia L AB: Complete Blood Count Auto Diff (Collection Date & Time - 08/05/2024 07:00 AM) L AB: Comprehensive Phillips. Panel Fast (Collection Date & Time - 08/05/2024 07:00 AM) L AB: Lipid Panel (Collection Date & Time - 08/05/2024 07:00 AM) L AB: PSA,Total (Free>4and<10) (Collection Date & Time - 08/05/2024 07:00 AM) L AB: Microalbumin, Random (Collection Date & Time - 08/05/2024 07:00 AM) L AB: Hemoglobin A1c (Collection Date & Time - 08/05/2024 07:00 AM) L AB: UA ClnCatch+Micro w/rflx Cult (Collection Date & Time - 08/05/2024 07:00 AM) 5. L ymphocytosis L AB: Complete Blood Count Auto Diff (Collection Date & Time - 08/05/2024 07:00 AM) L AB: Comprehensive Phillips. Panel Fast (Collection Date & Time - 08/05/2024 07:00 AM) L AB: Lipid Panel (Collection Date & Time - 08/05/2024 07:00 AM) L AB: PSA,Total (Free>4and<10) (Collection Date & Time - 08/05/2024 07:00 AM) L AB: Microalbumin, Random (Collection Date & Time - 08/05/2024 07:00 AM) L AB: Hemoglobin A1c (Collection Date & Time - 08/05/2024 07:00 AM) L AB: UA ClnCatch+Micro w/rflx Cult (Collection Date & Time - 08/05/2024 07:00 AM) 6. R ising PSA level L AB: Complete Blood Count Auto Diff (Collection Date & Time - 08/05/2024 07:00 AM) L AB: Comprehensive Phillips. Panel Fast (Collection Date & Time - 08/05/2024 07:00 AM) L AB: Lipid Panel (Collection Date & Time - 08/05/2024 07:00 AM) L AB: PSA,Total (Free>4and<10) (Collection Date & Time - 08/05/2024 07:00 AM) L AB: Microalbumin, Random (Collection Date & Time - 08/05/2024 07:00 AM) L AB: Hemoglobin A1c (Collection Date & Time - 08/05/2024 07:00 AM) L AB: UA ClnCatch+Micro w/rflx Cult (Collection Date & Time - 08/05/2024 07:00 AM) * Procedure Codes: 3 6415 VENIPUNCT, ROUTINE* * * The named appointment provid er may or may not be the originator of this progress note, and it is not deemed complete until electronically signed by the appointment provider. Sign off status: Pending * Provider: Nohemy Evans MD Date: 10/05/2023 Generated for Nusrat baez/Christine/Kayleigh on: 12:36 PM EDT
--- OUTSIDE RECORDS SUMMARY | 2024-08-12 04:00 | XMS_ITS ---
Author Organization Jonas Evans MD Address [address] [place], [place] [phone] Care Team Providers Care Brand Development Manager Name Role Phone Jonas Evans Primary Care Provider [phone] Allergies No Known Allergies REASON FOR VISIT [...] Problem Status W/U Status Risk Notes Problem [id number] History of prostate cancer (Z85.46) Active confirmed Vital Signs Blood pressure systolic 114 mm Hg 08/12/20 24 Blood pressure diastolic 60 mm Hg 024 Height 69.5 in 08/12/2024 Weight 210 lbs 08/12/2024 BMI 30.56 kg/m2 08/12/2024 weight is up 12 pounds since 02-09-24 Encounters Encounter Location Date Provider Diagnosis Jonas Evans MD [address] [place] [address] Drive [address] [place], [place] [phone] 08/12/2024 Jonas Evans History of prostate cancer [...] Up: 6 Months, Reason: Provider Name:Jonas arias, 08/12/2025 07:00:00 AM, [address], [address], [place], [place], [phone], Provider Name:Jonas Rudi Ramsay ier, 08/18/2025 08:00:00 AM, [address], [address], [place], [place], [phone], Progress Notes * Reji TUCKERDOB: (69 yo M)Acc No.[id number]:08/12/2024 Progress Notes Patient: Reji Patel Provider: Nohemy Evans MD :1955 A ge:69 Y S ex:Male Date:08/12/2024 Address:[address] [place], [place] [id number] Subjective: * Chief Complaints: * A nnual [...] T obacco Use: T obacco Use/Smoking P anamika is a n onsmoker, A dditional Findings: [...] Pets: cats. no Travel outside of the [place]. * Medications: T akingAtorvastatin Calcium 40 [...] mg/dL Urine Blood Negative Negative - Specific [place] - Urine 1.020 1.005-1.025 - Urine Protein [...] Urine 0-2 0-2 - /LPF L ab:Comprehensive [place]. Panel Fast (Order Date - 08/05/2024) (Collection [...] Evans MD Date: 10/12/2023 Generated for Nusrat baez/Christine/eTransmitting on: 12:36 PM EDT History and Physical Notes * HPI (History [...] Not at all Interpretation and Intervention Depression Abdoul lockett Findings: Negative Follow-Up for Depression: : review [...] had two or more falls in the st year?: No Communication Needs Communication Needs Does [...]
--- OUTSIDE RECORDS SUMMARY | 2024-10-04 09:30 | XMS_ITS ---
Author Organization [facility] Address [address] [place] [address] Care Team Providers Care Food Checkers And Cashiers Supervisor Name Role Phone Nathan TURPIN, Jonas Primary Care Provider Jamie Pittman [phone] REASON FOR VISIT rectal polyp Encounters Encounter Location Date Provider Diagnosis [facility] [place] [address] [place], [place] [phone] 10/04/2024 Jamie Sher Plan Of Treatment No Information Progress Notes * BARRY FRANCODOB:1955 (70 yo M)Acc No.[id number]:10/04/2024 COLON WITH MAC Patient: BARRY QUINTERO Provider: Paul Sher MD :1955 A ge:69 Y S ex:Male Date:10/04/2024 Address:[address] [place], [place] [phone] Pcp:Jonas Evans MD Subjective: * Chief Complaints: * 1 . Rectal polyp. * Medical History: Objective: * Vitals: Assessment: Plan: * Treatment: * * The named appointment provid er may or may not be the originator of this progress note, and it is not deemed complete until electronically signed by the appointment provider. Sign off status: Pending * Provider: Paul Sher MD Date: 0 10/04/2024 Generated for Terai ng/Fajaclyng/eTransmitting on: 1 12:35 PM EDT
--- OUTSIDE RECORDS SUMMARY | 2024-11-29 09:30 | XMS_ITS ---
Author Organization [facility] Address [address] [place] [address] Care Team Providers Care Well Surveying Engineer Name Role Phone Nathan TURPIN, Jonas Primary Care Provider Jamie Pittman [phone] REASON FOR VISIT rectal polyp Encounters Encounter Location Date Provider Diagnosis [facility] [place] [address] [place], [place] [phone] 11/29/2024 Jamie Sher Abnormal abdominal CT scan [...] Notes * BARRY FRANCODOB:1955 (70 yo M)Acc No.[id number]:11/29/2024 COLON WITH MAC Patient: BARRY QUINTERO Provider: Paul Sher MD :1955 A ge:69 Y S ex:Male Date:11/29/2024 Address:[address] [place], [place] [phone] Pcp:Jonas Evans MD Subjective: * Chief Complaints: * 1 . Rectal polyp. * Medical History: Objective: * Vitals: Assessment: * Assessment: 1. A bnormal abdominal CT scan - R93.5 (Primary) 2 . P ersonal history of adenomatous and serrated colon polyps - Z86.0101 3 . D iverticulosis of colon - K57.30 4 . I nternal hemorrhoids - K64.8 Plan: * Treatment: * Procedure Codes: 4 5378 DIAGNOSTIC COLONOSCOPY, Modifiers: 33 * * The named appointment provid er may or may not be the originator of this progress note, and it is not deemed complete until electronically signed by the appointment provider. Sign off status: Pending * Provider: Paul Sher MD Date: 0 11/29/2024 Generated for Nusrat baez/Christine/Hemalitting on: 1 12:36 PM EDT
--- OUTSIDE RECORDS SUMMARY | 2025-02-04 03:00 | XMS_ITS ---
Author Organization Jonas Evans MD Address [address] [place], [place] [phone] Care Team Providers Care Coremaking Supervisor Name Role Phone Jonas Evans Primary Care Provider Results Component Value Reference Range Notes Liver Panel Reviewed date:02/04/2025 12:28:40 PM Interpretation: Performing Lab:[facility], [address] [place] [phone] Notes/Report: Bilirubin Total 0.7 0.0-1.0 mg/dL Bilirubin Direct 0.3 0.0-0.5 mg/dL Aspartate Amino Transferase 22 5-37 U/L Alanine Aminotransferase 17 0-40 U/L Total Protein 6.7 6.5-8.0 g/dL Albumin Level 3.6 3.5-5.0 g/dL Alkaline Phosphatase 66 39-117 U/L Glucose Fasting Reviewed date:02/04/2025 12:28:14 PM Interpretation: Performing Lab:[facility], [address] [place] [phone] Notes/Report: Glucose Fasting 78 60-99 mg/dL Lipid Panel with Reflex Reviewed date:02/04/2025 12:27:58 PM Interpretation: Performing Lab:[address] [phone] Notes/Report: Triglycerides 67 <150 mg/dL Desirable Triglyceride: [...] A1c Reviewed date:02/04/2025 12:28:06 PM Interpretation: Performing Lab:[facility], [address] [place] [phone] Notes/Report: Hemoglobin A1c % 5.0 <6.0 % [...] average glucose, using the formula of the P5P-Okczmey Average Glucose study (ADAG), Diabetes Care, Vol.31,#8, Apr. 2007 REASON FOR VISIT FASTING LIPIDS Encounters Encounter Location Date Provider Diagnosis Jonas Evans MD [address] [place] [id number] 02/04/2025 Jonas Evans Prediabetes R73.09 a nd Pure hypercholesterolemia E78.00 Assessments Encounter Date Diagnosis (ICD Code) Assessment Notes Treatment Notes Treatment Clinical Notes Section Notes 02/04/2025 Prediabetes (ICD-10 - R73.09) 02/04/2025 Pure hypercholesterolemia (ICD-10 - E78.00) Plan Of Treatment Next Appt Details Provider Name:Jonas arias, 08/12/2025 07:00:00 AM, [address] [place] [address], [address], [phone], Provider Name:Jonas arias, 08/18/2025 08:00:00 AM, [address] [place] [address], [address], [phone], Progress Notes * Reji TUCKERDOB: 6 (70 yo M)Acc No.[id number]:02/04/2025 Progress Note Patient: Reji QUINTERO Provider: Nohemy Evans MD :1955 A ge:69 Y S ex:Male Date:02/04/2025 Address:[address] [place] [address] MOLLY [phone] Subjective: * Chief Complaints: * 1 . [...] MD Date: 0 02/04/2025 Generated for Nusrat baez/Christine/eTransmitting on: 1 12:35 PM EDT
--- OUTSIDE RECORDS SUMMARY | 2025-02-10 03:45 | XMS_ITS ---
Author Organization Jonas Evans MD Address [address] [place] [phone] Care Team Providers Care Production Hand Name Role Phone Jonas Evans Primary Care Provider [phone] Allergies No Known Allergies REASON FOR VISIT [...] kg/m2 02/10/2025 weight is down 6 pounds [facility] 08[facility] Encounters Encounter Location Date Provider Diagnosis Jonas Evans MD [address] [place] [phone] 02/10/2025 Jonas Evans Essential hypertensi on I10 [...] current regiment Next Appt Details Provider Name:Jonas Ramsay ier, 08/12/2025 07:00:00 AM, [address] [place] [address], [address], [place], [place], [phone], Provider Name:Jonas Ramsay ier, 08/18/2025 08:00:00 AM, [address] [place] [address], [address], [place], [place], [phone], Progress Notes * Reji TUCKER CameronDOB: (69 yo M)Acc No.[id number]:02/10/2025 Progress Notes Patient: Reji QUINTERO Provider: Nohemy Evans MD :1955 A ge:69 Y S ex:Male Date:02/10/2025 Address:[address] [place] [phone] Subjective: * Chief Complaints: * 6 MO [...] MD Date: 0 02/10/2025 Generated for Nusrat baez/Christine/Hemalitting on: 1 12:35 PM EDT History and Physical Notes * [...]
--- OUTSIDE RECORDS SUMMARY | 2025-04-26 10:15 | XMS_ITS ---
Author Organization Jonas Evans MD Address [address] [place] [phone] Care Team Providers Care Post Hole Digging Machine Operator Name Role Phone Jonas Evans Primary Care Provider REASON FOR VISIT referral Encounters Encounter Location Date Provider Diagnosis Jonas Evans MD [facility] [address] [place] [phone] 04/26/2025 Jonas Evans Plan Of Treatment Next Appt Details Provider Name:Jonas Ramsay ier, 08/12/2025 07:00:00 AM, [address] [place] [address], [address] [place] [address], [phone], Provider Name:Jonas arias, 08/18/2025 08:00:00 AM, [address] [place] [address], [address] [place] [address], [phone], Progress Notes * Reji TUCKERDOB: (69 yo M)Acc No.[id number]:04/26/2025 Patient: Holly SHEPARDGILDARDO Reji Barnes :1955 A ge:69 Y S ex:Male Address:[address] [place] [phone] * true * Date: Generated for Printi ng/Faxing/eTransmitting on: 1 12:34 PM EDT
--- OUTSIDE RECORDS SUMMARY | 2025-05-20 08:30 | XMS_ITS ---
Author Organization Jonas Evans MD Address [address] [place] [phone] Care Team Providers Care Recreation Clerk Name Role Phone Jonas Evans Primary Care Provider [phone] Allergies No Known Allergies REASON FOR VISIT [...] Date Provider Diagnosis Jonas Evans MD [address] [place] [phone] 05/20/2025 Jonas Evans Hypotension due to drugs [...] Name:Jonas Ramsay ier, 08/12/2025 07:00:00 AM, [address] [facility], [address], [place], [place], [phone], Provider Name:Jonas Ramsay ier, 08/18/2025 08:00:00 AM, [address] [facility], [address], [place], [place], [phone], Progress Notes * Reji TUCKER CameronDOB: (69 yo M)Acc No.[id number]:05/20/2025 Progress Notes Patient: Reji QUINTERO Provider: Nohemy Evans MD :1955 A ge:69 Y S ex:Male Date:05/20/2025 Address:[address] [place] [phone] Subjective: * Chief Complaints: * ? pre [...] Evans MD Date: 0 05/20/2025 Generated for Terai sasha/Christine/eTransmitting on: 1 12:35 PM EDT History and [...]
--- OUTSIDE RECORDS SUMMARY | 2025-05-20 08:47 | XMS_ITS ---
Author Organization Jonas Evans MD Address [address] [facility] [address] [place] [phone] Care Team Providers Care Licensed Electrician Name Role Phone Jonas Evans Primary Care Provider REASON FOR VISIT Surg cancelled Encounters Encounter Location Date Provider Diagnosis Jonas Evans MD [address] [facility] [address] [place] [phone] 05/20/2025 Jonas Evans Plan Of Treatment Next Appt Details Provider Name:Jonas Ramsay ier, 08/12/2025 07:00:00 AM, [address] [place] [address], [address], [phone], Provider Name:Jonas arias, 08/18/2025 08:00:00 AM, [address] [place] [address], [address], [phone], Progress Notes * Reji TUCKERDOB: (69 yo M)Acc No.[id number]:05/20/2025 Patient: Holly SHEPARDGILDARDO Reji Barnes :1955 A ge:69 Y S ex:Male Address:[address] [place] [phone] * true * Date: Generated for Printi ng/Faxing/eTransmitting on: 1 12:38 PM EDT
--- OUTSIDE RECORDS SUMMARY | 2025-05-23 04:15 | XMS_ITS ---
Author Organization Jonas Evans MD Address [address] [place] [phone] Care Team Providers Care Supervisor Veneer Name Role Phone Jonas Evans Primary Care Provider [phone] Allergies No Known Allergies REASON FOR VISIT [...] Provider Diagnosis Jonas Evans MD [address] [place] [phone] 05/23/2025 Jonas Evans RBBB I45.10 ; Hypotension [...] get the stress/ test is booked at [facility] 05-[place] at 10am Plan Of Treatment Treatment Notes Assessment Notes Hypotension due to drugs has resolved Shortness of breath will get the stress test as the preop cancelled the surgery until we get the stress/ test is booked at [facility] 05-24-25 at 10am Pending Test Test Name Order Date KATIUSKA coffey stress w fito 05/23/2025 Next Appt Details Follow Up: after stress, Nicky son: Provider Name:Jonas Ramsay ier, 08/12/2025 07:00:00 AM, [address] [facility], [address], [place], [place], [phone], Provider Name:Jonas Grijalva Devendra ier, 08/18/2025 08:00:00 AM, [address] [facility], [address], [place], [place], [phone], Progress Notes * Reji TUCKERDOB: (69 yo M)Acc No.[id number]:05/23/2025 Progress Notes Patient: Reji QUINTERO Provider: Nohemy Evans MD :1955 A ge:69 Y S ex:Male Date:05/23/2025 Address:[address] [place] [phone] Subjective: * Chief Complaints: * B P [...] we get the stress/ test isbooked at [facility] 05-[place] at 10am?? * Procedure Codes: * Follow Up: a fter stress * * Sign off status: Completed true * Provider: Nohemy Evans MD Date: 0 05/23/2025 Generated for Nusrat baez/Christine/eTkaushikitting on: 12:37 PM EDT History and Physical Notes * [...]
--- OUTSIDE RECORDS SUMMARY | 2025-06-02 08:45 | XMS_ITS ---
Author Organization Jonas Evans MD Address [address] [place] [phone] Care Team Providers Care Regulatory Technician Name Role Phone Jonas Evnas Primary Care Provider [phone] Allergies No Known Allergies REASON FOR [...] Date Provider Diagnosis Jonas Evans MD [address] [phone] 06/02/2025 Jonas Evans Leg edema R60.0 Assessments [...] directions Next Appt Details Provider Name:Jonas arias, 08/12/2025 07:00:00 AM, [address], [address], [place], [place], [phone], Provider Name:Jonas Ramsay ier, 08/18/2025 08:00:00 AM, [address] [facility], [address], [place], [place], [phone], Progress Notes * Reji TUCKERDOB: (69 yo M)Acc No.[id number]:06/02/2025 Progress Notes Patient: Reji QUINTERO Provider: Nohemy Evans MD :1955 A ge:69 Y S ex:Male Date:06/02/2025 Address:[address] [place], [place] [id number] Subjective: * Chief Complaints: * W ANTS TO SPEAK WITH DR * HPI: S ymptom(s): patient is a [...] MD Date: 0 06/02/2025 Generated for Nusrat baez/Christine/eTransmitting on: 1 12:36 PM EDT History and Physical Notes [...]
--- NOTE | 2025-07-18 10:39 | CA_ITS ---
Transthoracic Echocardiogram Patient (Last, First, Middle): Reji Tucker, Gender: M Date of : 1955 Age: 70 Procedure Date: 07/18/2025 Procedure Type: Transthoracic Echocardiogram Location: OP Height: 175.26 cm Weight: 88.45 kg BSA: 2.04 m2 Heart Rate: bpm BP: 118 / 60 mmHg Custody Officer: Referring MD: Mao Hamilton MD Shellfish Bed Worker: Milton Jarvis MD Symptoms: I45.2 - Bifascicular block Study Quality: Adequate ECG Rhythm: Sinus Conclusions: - 1. Normal LV ejection fraction 55-60% with mild LVH with pseudonormal filling pattern 2. Mildly dilated left atrium 3. Trace aortic regurgitation 4. Mildly dilated ascending aorta 3.9 cm 5. Normal RV systolic pressure 6. No gross pericardial effusion Findings Procedure Information Contrast agent, definity, is being given per protocol without apparent complications. Left Ventricle Normal left ventricular size and systolic function. There is mildly increased left ventricular wall thickness. The visually estimated ejection fraction is between 55-60%. Spectral Doppler is indicative of a pseudonormal filling pattern. Right Ventricle Normal right ventricular cavity size and systolic function. Atria The left atrium is mildly dilated. There is no evidence of interatrial shunt. The right atrium is normal in size. Aortic Valve Normal aortic valve structure and function. There is no aortic valve stenosis. There is trace (trivial) aortic valve regurgitation. Mitral Valve Normal mitral valve structure and function. There is trace mitral valve regurgitation. There is no mitral valve stenosis. Pulmonic Valve The pulmonic valve is likely normal. There is trace pulmonic valve regurgitation. Tricuspid Valve Normal tricuspid valve structure. There is trace tricuspid valve regurgitation. The right ventricular systolic pressure is normal. The right ventricular systolic pressure is 20 mmHg. Normal right atrial pressure. There is no evidence of pulmonary hypertension. Great Vessels The pulmonary artery was not well visualized. There is mild dilatation of the ascending aorta measuring 3.90 cm. Venous The inferior vena cava is normal in size and collapses greater than 50% with inspiration. Pericardium/Pleural There is no evidence of pericardial effusion. Prior Study Comparison No prior study available for comparison. Measurements 2D Linear Measurements IVSd: 1.41 0.6-0.9/0.6-1.0 cm LVIDd: 5.32 3.9-5.3/4.2-5.9 cm LVIDd Index: 2.61 2.4-3.2/2.2-3.1 cm/m2 LVIDs: 3.28 2.0-3.6 cm LVPWd: 1.35 0.7-1.1 cm Ao Root: 3.10 2.1-3.5 cm LA Diam: 4.20 2.7-3.8/3.0-4.0 cm LAIDs Index: 2.06 1.5-2.3 cm/m2 LV Mass: 392.02 67-162/88-224 g LV Mass Index: 192.17 43-95/49-115 g/m2 LVOT Diam: 2.30 3.0+(-)1.3 cm 2D Systolic Function EF 4C: 58.00 >55% EF 2C: 54.80 >55% EF BiP: 56.40 >55% Mitral Valve MV VTI: 0.36 MV Pk Gregorio: 1.05 MV Mn Gregorio: 0.61 MV Pk Grad: 4.00 MV Mn Grad: 2.00 MV Pk E: 0.98 MV PK A: 0.87 MV Decel Time: 254.00 E/A: 1.10 E'Lateral: 9.57 E'Medial: 6.31 E/E' Med: 15.50 E/E' Lat: 10.20 PHT: 74.00 MVA PHT: 2.97 MVA Continuity: 2.64 Decel Sublette: 3.85 Aortic Valve AoV Pk Gregorio: 1.89 AoV Mn Gregorio: 1.16 AoV VTI: 0.49 AoV Pk Grad: 14.00 Aov Mn Grad: 7.00 STEPHANIE Cont.VTI: 1.94 LVOT LVOT Pk Gregorio: 0.80 LVOT Mn Gregorio: 0.50 LVOT VTI: 0.23 LVOT Pk Grad: 3.00 LVOT Mn Grad: 1.00 LVOT Diam: 2.30 LVOT Area: 4.15 Diastolic Function MV Pk E: 0.98 MV Pk A: 0.87 E/A: 1.10 E'Medial: 6.31 E/E' Med: 15.50 E' Laterial: 9.57 E/E' Lat: 10.20 Right Ventricle TAPSE (mm): 26.00 TVS' Gregorio: 14.00 Tricuspid Valve TR Pk Gregorio: 2.05 TR Pk Grad: 17.00 RA Press: 3.00 RVSP: 20.00 Great Vessels Aorta Ao Root-2D: 3.10 2.0-3.7 cm Ao Asc: 3.90 2.1-3.4 cm Pulmonary Veins Pulm Vein S/D 0.90 Pulmonary Valve PV Pk Gregorio: 0.79 Peak PV Grad: 2.00 Updated in Other Vendor System with Status of Final Milton Jarvis MD electronically signed on 07/18/2025 2:51:55 PM with status of Final
--- OUTSIDE RECORDS SUMMARY | 2025-07-18 12:35 | XMS_ITS | Clinical Summary ---
Author Organization [facility] Address [address] [place] [address] [place] [address] Phone Care Team Providers Care Tug Master Name Role Phone Jonas Evans MD Primary Care Provider Imelda Alvarenga MD, MPH Unavailable [phone] José Mckoy MD Unavailable [phone] Mak Bautista MD Unavailable [phone] Allergies No known active allergies Medications atorvastatin [...] prostatecto my. 4 tablet 11 4 Active Active Problems Problem Noted Date Diagnosed Date [...] FOBT 2001 SIGMOIDOSCOPY 2001 VIRTUAL COLONOSCOPY 2001 BLOOD PRESSURE 08/22/2024 02/20/2024 CREATININE LEVEL 02/09/2025 02/10/2024 POTASSIUM LEVEL 02/09/2025 02/10/2024 INFLUENZA VACCINE (#1) 2025 COVID-19 VACCINE (3 - 2024-2 6 season) 2025 01/11/2021, 12/14/2020 RSV VACCINE (1 - 1-dose 75+ series) [...] EDT) SODIUM 137 136 - 145 mmol/L [facility] CHLORIDE 104 98 - 107 mmol/L [facility] POTASSIUM 4.1 3.4 - 5.0 mmol/L [facility] Comment:HEMOLYSIS_INDEX_OF_2 6,INTERPRET_WITH_CAUTION CO2 24 22 - 31 mmol/L [facility] BUN 16 6 - 23 mg/dL [facility] CREATININE 1.08 0.50 - 1.20 mg/dL [facility] GLUCOSE 166(H) 70 - 115 mg/dL [facility] CALCIUM 8.2(L) 8.6 - 10.7 mg/dL [facility] EGFR 75 >60 mL/min/1.7 3m2 [facility] Comment:Estimated glomerular filtration rate calculated using the CKD-EPI refit equation. ANION GAP 10 3 - 15 mmol/L [facility] Blood 02/10/2024 11:5 8 AM EDT 02/10/2024 12:03 PM EDT us José Mckoy MD LAB BLOOD ORDERABLES Final Re sult [facility] [address] [place] [address] from Last 3 Months or Most Recently Relevant to Health Maintenance Insurance [facility] [place] [address] [facility] Care Teams Tug Master Relationship Specialty Start Date End Date Jonas Evans MD [address] [place] [address] [place] [address] PCP - General Internal Medicine 12/25/23 Imelda Alvarenga MD, MPH [address] [place] [address], [facility]- [address] [address] [email or web address] Radiation Oncology 01/15/24 José Mckoy MD [address] [place] [address] Urology 01/15/24 Mak Bautista MD [address] [place] [address] [email or web address] Medical Oncology 01/15/24 Additional Source Comments The information contained in this document represents components of the legal health record. It is not the complete legal health record.[facility]
--- OUTSIDE RECORDS SUMMARY | 2025-07-18 12:35 | XMS_ITS | Patient Health Record ---
Author Organization [facility] Address [address] [place] [phone] Care Team Providers Care Lighthouse Keeper Name Role Phone Jonas Evans MD Primary Care Provider Jamie Pittman [phone] Allergies No Known Allergies Reason For Referral No Information Medications Medication SIG (Take, Route, Frequency, Duration) Notes Start Date End Date Status Atorvastatin Calcium Active Valsartan-hydroCHLOROthiazi de Active Immunizations Vaccine Route Administration Date Status Comme nts Influenza Unknown 02/20/2022 Refused Influenza Unknown 06/23/2024 Refused Problems Problem Type SNOMED Code ICD Code Onset Dates Problem Status W/U Status Risk Notes Problem Screening for malignant neoplasm of colon (773596760) Encounter for screening for malignant neoplasm of colon (Z12.11) Active confirmed Problem History of adenomatous polyp of colon (340958755) History of adenomatous polyp of colon (Z86.010) Active confirmed Problem Rectal polyp (37795568) Rectal polyp (K62.1) Active confirmed Problem Screening for malignant neoplasm of rectum (119078433) Encounter for screening for malignant neoplasm of rectum (Z12.12) Active confirmed Problem Preprocedural examination (272686482096378) Preprocedural examination (Z01.818) Active confirmed Problem Diverticulosis of colon (156949617) Diverticulosis of colon (K57.30) Active confirmed Problem Imaging of abdomen abnormal (231673797) Abnormal MRI of the abdomen (R93.5) Active confirmed Encounters Encounter Location Date Provider Diagnosis [facility] [address] [place], [place] [id number] 11/29/2024 Jamie Sher Abnormal abdominal C T scan R93.5 ; Personal history of adenomatous and serrated colon polyps Z86.0101 ; Diverticulosis of colon K57.30 and Internal hemorrhoids K64.8 [facility] [address] [place] [address] 10/01/2024 Jamie Sher Assessments Encounter Date Diagnosis [...] Insured Coverage Start Date Coverage End Date [employer] [address] [place] [address] [id number] BARRY FRANCO Self - patient is the insured Medical (General) History Medical History History ICD Code Denies CO,DM,CVA,Lung disease,renal dise ase Hypertension Hyperlipidemia Screening colonoscopy 11/2015 with 2 tubu lar adenomas removed Screening colonoscopy in February of 2022 wi th a single tubular adenoma removed Prostate cancer in February of 2024 with alvni mixon as below Surgical History Surgery Date(Month/Year) Prostatectomy for cancer in February of 2024 at [facility]
--- OUTSIDE RECORDS SUMMARY | 2025-07-18 12:37 | XMS_ITS | Patient Health Record ---
Author Organization Jonas Evans MD Address [address] [place], [place] [id number] Care Team Providers Care Fine Arts Chair Name Role Phone Jonas Evans Primary Care Provider Allergies No Known Allergies Results Component Value Reference Range Notes Complete Blood Count Auto Di ff Reviewed date:08/05/2024 12:33:38 PM Interpretation: Performing Lab:[facility], [address] [place] [phone] Notes/Report: White Blood Count 5.3 4.8-10.8 X10*3/uL [...] 0.0-0.2 /100WBC Neutrophils Absolute Auto 2.2 2.0-8.3 x10*3/uL Imm Gran Abs Auto 0.01 0.00-0.03 X10*3/uL Lymphocytes Absolute Auto 2.3 1.2-4.9 X10*3/uL Monocytes Absolute Auto 0.6 0.1-1.2 X10*3/uL Eosinophils Absolute Auto 0.1 0.0-0.4 X10*3/uL Basophils Absolute Auto 0.0 0.0-0.2 X10*3/uL NRBC Abs Auto 0.000 0.0-0.012 X10*3/uL Comprehensive [place]. Panel Fa st Reviewed date:08/05/2024 12:33:18 PM Interpretation: Performing Lab:[address] [phone] Notes/Report: Sodium 141 135-145 mmol/L Potassium 3.9 3.3-5.1 mmol/L Chloride 105 96-108 mmol/L Carbon Dioxide 27 22-29 mmol/L Anion Gap 13 12-20 Blood Urea Nitrogen 17 9-16 mg/dL Creatinine 0.81 0.5-1.4 mg/dL Estimated Glomerular Filt Rate > 60 NOTE: For -Bruneian individuals, multiply the result by 1.210. Chronic [...] Panel Reviewed date:08/05/2024 12:33:53 PM Interpretation: Performing Lab:[facility], [address] [place] [phone] Notes/Report: Triglycerides 65 <150 mg/dL Desirable Triglyceride: [...] (Free>4and<10) Reviewed date:08/05/2024 01:13:41 PM Interpretation: Performing Lab:[address] [phone] Notes/Report: PSA,Total (Free>4and<10) < 0.10 0.00-4.00 ng/mL [...] Random Reviewed date:08/05/2024 01:13:32 PM Interpretation: Performing Lab:[address] [address] Notes/Report: Creatinine Urine 199.66 Microalbumin Urine 10.0 Microalbum/Creatinine Ratio Ur 5.0 <30 ug/mg cr Albumin/Creatinine Ratio Reference Ranges: Normal: < 30 ug/mg creatinine Microalbuminuria: 30 - 300 ug/mg creatinine Clinical Albuminuria: > 300 ug/mg creatinine Hemoglobin A1c Reviewed date:08/05/2024 12:32:53 PM Interpretation: Performing Lab:[address] [phone] Notes/Report: Hemoglobin A1c % 5.0 <6.0 % [...] average glucose, using the formula of the P4L-Zfbvgnl Average Glucose study (ADAG), Diabetes Care, Vol.31,#8, Apr. 2007 UA ClnCatch+Micro w/rflx Cul t Reviewed date:08/05/2024 12:34:21 PM Interpretation: Performing Lab:[facility], [address] [place] [phone] Notes/Report: Urine, Clean Catch Color Urine Yellow Appearance Urine Clear PH 5.5 5.0-9.0 Glucose Urine UA Negative Negative mg/dL Urine Blood Negative Negative Specific Hawkeye - Urine 1.020 1.005-1.025 Urine Protein Negative Neg-Trace mg/dL Urine Ketones Negative Negative mg/dL Nitrite Urine Negative Negative Leukocyte Esterase Urine Negative Negative RBC Urine 0-2 0-2 /HPF WBC Urine 0-5 0-5 /HPF Squamous Epithelial Cell Urine 0-2 0-2 /HPF Bacteria Urine None Seen None Seen Hyaline Casts Urine 0-2 0-2 /LPF Liver Panel Reviewed date:02/04/2025 12:28:40 PM Interpretation: Performing Lab:[facility], [address] [place] [phone] Notes/Report: Bilirubin Total 0.7 0.0-1.0 mg/dL Bilirubin Direct 0.3 0.0-0.5 mg/dL Aspartate Amino Transferase 22 5-37 U/L Alanine Aminotransferase 17 0-40 U/L Total Protein 6.7 6.5-8.0 g/dL Albumin Level 3.6 3.5-5.0 g/dL Alkaline Phosphatase 66 39-117 U/L Glucose Fasting Reviewed date:02/04/2025 12:28:14 PM Interpretation: Performing Lab:[facility], [address] [place] [phone] Notes/Report: Glucose Fasting 78 60-99 mg/dL Lipid Panel with Reflex Reviewed date:02/04/2025 12:27:58 PM Interpretation: Performing Lab:[facility], [address] [place] [phone] Notes/Report: Triglycerides 67 <150 mg/dL Desirable Triglyceride: [...] A1c Reviewed date:02/04/2025 12:28:06 PM Interpretation: Performing Lab:[facility], [address] [place] [phone] Notes/Report: Hemoglobin A1c % 5.0 <6.0 % [...] average glucose, using the formula of the I9V-Gxdjqna Average Glucose study (ADAG), Diabetes Care, Vol.31,#8, Apr. 2007 Rito Bradford Reviewed date:02/04/2025 12:27:50 PM Interpretation: Performing Lab:[facility], [address] [place] [phone] Notes/Report: Rito Bradford See Note Specimen held untested for 24 hours; Call to request Chemistry testing. NM fito perf SPECT rest & str Reviewed date:05/27/2025 08:40:22 AM Interpretation: Performing Lab: Notes/Report: [address] [address] Nuclear Medicine Report Signed Patient: Reji Tucker MR#: [id number] : 1955 Acct:[id number] Age/Sex: 69 / M ADM Date: 05/24/25 Loc: [facility] Attending Dr: Jonas Evans MD Ordering Physician: Jonas Evans MD Date of Service: 05/24/25 Procedure(s): NM fito perf SPECT rest str Accession Number(s): [id number] cc: Jonas Evans MD Lexiscan Myocardial perfusion study Indication: Preoperative cardiac evaluation Technique: The patient was brought in for a Lexiscan perfusion study on 05/24/2025 and was injected 0.4 mg of Lexiscan intravenously. Within a minute of this injection 35 mCi of sestamibi was given intravenously. Images were obtained using the SPECT gamma camera interlaced with the gating device. Images were obtained in supine position. Resting perfusion study was performed on 05/25/2025. Patient was administered 35 mCi of sestamibi intravenously at rest. Images were then obtained in supine position. Total DLP 73 mGy-cm. Images were processed with the software and compared side to side in short axis, horizontal long axis and vertical long axis views. Findings: Raw aquisition reviewed. The stress perfusion study showed decreased tracer uptake along the inferior wall. There is also adjacent subdiaphragmatic tracer uptake. With CT attenuation correction, there is globally reduced tracer uptake which could be technical. The gated study shows reduced LV systolic function with calculated LVEF of 43%. LV cavity is dilated in size. The gated study shows globally reduced wall thickening and contraction of segments. Resting study shows reduced tracer uptake in the inferior wall. There is adjacent subdiaphragmatic tracer uptake. Improvement with CT attenuation correction suggestive of diaphragmatic attenuation artifact. Gating at rest reveals globally reduced wall motion with ejection fraction at 47%. The findings are consistent with fixed inferior perfusion defect, no clear reversible defects. NM/NM fito perf SPECT rest str Impression: 1. Myocardial perfusion imaging study shows no clear evidence of ischemia. Fixed appearing inferior defect possibly artifactual. Less likely prior infarct. 2. Gated LVEF is 43% during stress and 47% during rest. 3. Transient ischemic dilatation not present. EKG component of the test reported separately. Electronically signed by: Mao Nathan MD 05/26/2025 04:04 PM EDT RP Dictated By: Mao Nathan MD Signed By: <Electronically signed by Mao Nathan MD in OV> 05/26/25 1604 DD/ 1000 TD/TT: 05/25/25 0815 Bus Company Manager: [place] [id number] Nuclear Medicine Report Signed Patient: Gio Tucker MR#: [id number] : 1955 Acct:[id number] Age/Sex: 69 / M ADM Date: 05/24/25 Loc: [facility] Attending Dr: Jonas Evans MD Ordering Physician: Jonas Evans MD Date of Service: 05/24/25 Procedure(s): NM fito perf SPECT rest str Accession Number(s): [id number] cc: Jonas Evans MD Lexiscan Myocardial perfusion study Indication: Preoperative cardiac evaluation Technique: The patient was brou t in for a Lexiscan perfusion study on 05/24/2025 and was injected 0.4 mg of Lexiscan intravenously. Within a minute of this injection 35 mC i of sestamibi was given intravenously. Images were obtained using the hurleypalmerflatt gamma camera interlaced with the gating device. Images were obtained in supine position. Resting perfusion st udy was performed on 05/25/2025. Patient was administered 35 mCi of sestamibi intravenously at rest. Images were then obtained in sup ine position. Total DLP 73 mGy-cm. Images were processe d with the software and compared side to side in short axis, horizont al long axis and vertical long axis views. Findings: Raw aquisition reviewed. The stress perfusion study showed decreased tracer uptake along the inferior wall. There is also adjacent subdiaphragmatic tracer uptake. With CT attenuation correction, there is globally reduced tracer uptake which could be technical. The gated study shows reduced LV systolic function with calcul ated LVEF of 43%. LV cavity is dilated in size. The gated study shows globally reduced wall thickening and contraction of segments. Resting study shows reduced tracer uptake in the inferior wall. There is adjacent subdiaphragmatic tracer uptake. Improvement with CT attenuation correcti on suggestive of diaphragmatic attenuation artifact. Gating at rest reveals globally reduced wall motion with ejection fraction at 47%. The findings are consistent with fixed inferior perfusion defect, no clear reversible defects. N M/NM fito perf SPECT rest str Impression: 1. Myocardial perfus ion imaging study shows no clear evidence of ischemia. Fixed appearing inferior defect possibly artifactual. Less likely prior infarct. 2. Gated LVEF is 43% during stress and 47% during rest. 3. Transient ischemi c dilatation not present. EKG component of the test reported separately. Electronically antonio d by: Mao Nathan MD 05/26/2025 04:04 PM EDT RP Workstatio n: [id number] Dictated By: Mao Nathan MD Signed By: <Electronically signed by Mao Nathan MD in OV> 05/26/25 1604 DD/ 1000 TD/TT: 05/25/25 0815 Bus Company Manager: Reason For Referral Reason I45.[address] ress test at [facility] Diagnosis 1 RBBB (I45.10) Referral Organization Jonas Evans MD Referring Provider First Name Jonas Referring Provider Last Name Nathan Referring Provider Speciality Internal M edicine Referred Provider ESTUARDO NATHAN Referred Provider Specialty Cardiology General Notes Carine Lopez 0 05/27/2025 08:34:35 AM >referral in faxed, Spoke with Sayra at Dr. Jarvis office, She will work on getting him in for an appt .John Annette 05/27/2025 09:22:47 AM > was told by office patient is aware of appt Referral Priority Routine Referral Appointment Date 05/31/2025 Medications Medication SIG (Take, Route, Frequency, Duration) [...] Problem Status W/U Status Risk Notes Problem 51311297 Lymphocytosis (D72.820) Active confirm ed Problem 811464794 Tubular adenoma of colon (D12.6) Active confirmed Problem 94108341 Essential hypert ension (I10) Active confirmed Problem 2064803 Prediabetes (R73.09) Active confirmed Problem 09172714 RBBB (I45.10) Active confirmed Problem 957707630 History of prost ate cancer (Z85.46) Active confirmed Problem 322885881 Rising PSA level (R97.20) Active confirmed Problem 491868121 Pure hypercholesterolemia (E78.00) Active confirmed Vital Signs Blood pressure diastolic 70 mm Hg 06/02/2025 Height 69.5 in 06/02/2025 Blood pressure systolic 134 mm Hg 06/02/2025 Weight 183 lbs 05/23/2025 BMI 26.63 kg/m2 05/23/2025 Encounters Encounter Location Date Provider Diagnosis Jonas Evans MD [address] [place] [id number] 08/05/2024 Jonas Evans Blood tests for rout ine general physical examination Z00.00 ; Essential hypertension I10 ; Prediabetes R73.09 ; Pure hypercholesterolemia E78.00 ; Lymphocytosis D72.820 and Rising PSA level R97.20 Jonas Evans MD [address] [place] [id number] 02/04/2025 Jonas Evans Prediabetes R73.09 a nd Pure hypercholesterolemia E78.00 Jonas Evans MD [address] [place] [id number] 08/12/2024 Jonas Evans History of prostate cancer Z85.46 ; Annual physical exam Z00.00 ; Essential hypertension I10 ; Prediabetes R73.09 ; Pure hypercholesterolemia E78.00 ; Colon cancer screening Z12.11 and Depression screening Z13.31 Jonas Evans MD [address] [place] [id number] 02/10/2025 Jonas Evans Essential hypertensi on I10 ; Prediabetes R73.09 and Pure hypercholesterolemia E78.00 Jonas Evans MD [address] [place] [id number] 05/20/2025 Jonas Evans Hypotension due to d rugs I95.2 and Abnormal weight loss R63.4 Jonas Evans MD [address] [place] [id number] 05/23/2025 Jonas Evans RBBB I45.10 ; Hypote nsion due to drugs I95.2 and Shortness of breath R06.02 Jonas Evans MD [address] [place] [id number] 06/02/2025 Jonas Evans Leg edema R60.0 Jonas Evans MD [address] [place] [id number] 04/26/2025 Jonas Evans MD [address] [place] [address] [id number] 05/20/2025 Jonas Evans Assessments Encounter Date Diagnosis (ICD Code) Assessment Notes Treatment Notes Treatment Clinical Notes Section Notes 08/05/2024 Blood tests for routine general physical examination (ICD-10 - Z00.00) 08/05/2024 Essential hypertension (ICD-10 - I10) 02/04/2025 Prediabetes (ICD-10 - R73.09) 08/12/2024 History of prostate cancer (ICD-10 - Z85.46) doing great after surgery 08/12/2024 Annual physical exam (ICD-10 - Z00.00) labs reviewed and discussed with patient 02/10/2025 Essential hypertension (ICD-10 - I10) good control, will continue current regiment 05/20/2025 Hypotension due to drugs (ICD-10 - I95.2) 05/20/2025 Abnormal weight loss (ICD-10 - R63.4) not clear as to why this is happening but even if there is something wrong he wants to have a good hip so will hold off evaluation until after his hip surgery 05/23/2025 RBBB (ICD-10 - I45.10) 05/23/2025 Hypotension due to drugs (ICD-10 - I95.2) has resolved 06/02/2025 Leg edema (ICD-10 - R60.0) related to stopping the hctz, patient verbalizedunderstnading of medication and directions 08/05/2024 Prediabetes (ICD-10 - R73.09) 02/04/2025 Pure hypercholesterolemia (ICD-10 - E78.00) 08/12/2024 Essential hypertension (ICD-10 - I10) well controlled, will continue current regiment 02/10/2025 Prediabetes (ICD-10 - R73.09) well controlled, no need for medication at thios time, will continue to monitor 05/23/2025 Shortness of breath (ICD-10 - R06.02) will get the stress test as the preop cancelled the surgery until we get the stress/ test is booked at [facility] 05-24-25 at 10am 08/05/2024 Pure hypercholesterolemia (ICD-10 - E78.00) 08/12/2024 Prediabetes (ICD-10 - R73.09) stable, no need for medication at this time 02/10/2025 Pure hypercholesterolemia (ICD-10 - E78.00) doing well on meds, will continue current regiment 08/05/2024 Lymphocytosis (ICD-1 0 - D72.820) 08/12/2024 Pure hypercholesterolemia (ICD-10 - E78.00) stable, will contiue current regiment 08/05/2024 Rising PSA level (ICD-10 - R97.20) 08/12/2024 Colon cancer screening (ICD-10 - Z12.11) guaiac negative 08/12/2024 Depression [...] (EKG) 03/05/2019 MRA BRAIN NO CONTRAST 03/05/2019 CA lexiscan stress w fito 05/23/2025 Next Appt Details Provider Name:Jonas Ramsay ier, 08/12/2025 07:00:00 AM, [address] [place] [address], [address], [id number], Provider Name:Jonas Ramsay ier, 08/18/2025 08:00:00 AM, [address] [place] [address], [address], [id number], Insurance Providers Payer Name Payer Address Payer Phone Subscriber Number Group Number Insured Name Patient Relationship to Insured Coverage Start Date Coverage End Date [employer] [address] [place], [place] [id number] Reji Tucker Self - patient is the insured Medical (General) History Medical History History ICD Code 10/30/12 - refused flu shot discussed colonoscopy schedu led 2014; colonoscopy 12/27/15 - repeat 5 yrs (Dr. Sher)(2020) colonoscopy 2021 repeat in 5 years: 03/20/22 colonoscopy repeat 5 yrs ( 2026) Lymphocytosis Xanthelasma of eyelid
--- OUTSIDE RECORDS SUMMARY | 2025-07-18 12:38 | XMS_ITS | Encounter Summary ---
Author Organization [facility] Address [address] [place] [address] [place] [address] Phone Care Team Providers Care Icing Maker Name Role Phone Jonas Evans MD Primary Care Provider Imelda Alvarenga MD, MPH Unavailable [phone] José Mckoy MD Unavailable [phone] Mak Bautista MD Unavailable [phone] Encounter Details Date Type Department Care Team (Late st Contact Info) Description 01/19/2024 Ancillary Orders Outside Imaging Mak Bautista MD [address] [place] [address] [email or web address] Social History Tobacco Use Types [...] on filedocumented in this encounter Care Teams Icing Maker Relationship Specialty Start Date End Date Jonas Evans MD [address] [place] [address] [place] [address] PCP - General Internal Medicine 12/25/23 Imelda Alvarenga MD, MPH [address] [place] [address] [address] [place] [address] [email or web address] Radiation Oncology 01/15/24 José Mckoy MD [address] [place] [address] Urology 01/15/24 Mak Bautista MD [address] [place] [address] [email or web address] Medical Oncology 01/15/24 documented as of this encounter Additional Source Comments The information contained in this document represents components of the legal health record. It is not the complete legal health record.[facility]
--- OUTSIDE RECORDS SUMMARY | 2025-07-18 12:38 | XMS_ITS | Encounter Summary ---
Author Organization [facility] Address [address] [place] [address] [place] [address] Phone Care Team Providers Care Wastewater Treatment Plant Operator Name Role Phone Jonas Evans MD Primary Care Provider Imelda Alvarenga MD, MPH Unavailable [phone] José Mckoy MD Unavailable [phone] Mak Bautista MD Unavailable [phone] Encounter Details Date Type Department Care Team (Late st Contact Info) Description 01/19/2024 Ancillary Orders Outside Imaging Mak Bautista MD [address] [place] [address] [email or web address] Social History Tobacco Use Types Packs/Day [...] on filedocumented in this encounter Care Teams Wastewater Treatment Plant Operator Relationship Specialty Start Date End Date Jonas Evans MD [address] [place] [address] [place] [address] PCP - General Internal Medicine 12/25/23 Imelda Alvarenga MD, MPH [address] [place] [address] [address] [place] [address] [email or web address] [email or web address] 01/15/24 José Mckoy MD [address] [place] [address] Urology 01/15/24 Mak Bautista MD [address] [place] [address] [email or web address] Medical Oncology 01/15/24 documented as of this encounter Additional Source Comments The information contained in this document represents components of the legal health record. It is not the complete legal health record.[facility]
== END ==
LOC: HO.CARD 10:34
PROVIDERS: PCP Internal Medicine; Visit Provider Internal Medicine
DX: I45.2 Bifascicular block (principal)
CPT/HCPCS: 93306; Q9957

== ENCOUNTER → 2025-07-18 10:39 | Outpatient (BNV) | payer BC, SELFPAY | PROVIDERS: PCP Internal Medicine; Visit Provider Internal Medicine Cardiovascular Disease | DX: I35.1 Nonrheumatic aortic (valve) insufficiency (principal); I51.7 Cardiomegaly; I77.810 Thoracic aortic ectasia | CPT/HCPCS: 93306 ==

== ENCOUNTER 2025-08-08 10:26 | Outpatient (REF) | payer BC, SELFPAY ==
[2025-08-08 11:43] LABS: Anion Gap 12 (12-20); Blood Urea Nitrogen 13 mg/dL (9-16); Calcium 8.7 mg/dL (8.4-10.2); Carbon Dioxide 25 mmol/L (22-29); Chloride 109 mmol/L (96-108); Estimated Glomerular Filt Rate > 60; Potassium 4.2 mmol/L (3.3-5.1); Sodium 142 mmol/L (135-145)
--- OUTSIDE RECORDS SUMMARY | 2025-08-08 12:13 | XMS_ITS | Encounter Summary ---
Author Organization [facility] Address [address] [place] [address] [place] [address] Phone Care Team Providers Care Medical Authorization Specialist Name Role Phone Jonas Evans MD Primary Care Provider Imelda Alvarenga MD, MPH Unavailable [phone] José Mckoy MD Unavailable [phone] Mak Bautista MD Unavailable [phone] Encounter Details Date Type Department Care Team (Late st Contact Info) Description 01/19/2024 Ancillary Orders Outside Imaging Mak Bautista MD [address] [place] [address] [email or web address] Social History Tobacco Use Types Packs/Day Years [...] on filedocumented in this encounter Care Teams Medical Authorization Specialist Relationship Specialty Start Date End Date Jonas Evans MD [address] [place] [address] [place] [address] PCP - General Internal Medicine 12/25/23 Imelda Alvarenga MD, MPH [address] [place] [address] [address] [place] [address] [email or web address] [email or web address] Oncology 01/15/24 José Mckoy MD [address] [place] [address] Urology 01/15/24 Mak Bautista MD [address] [place] [address] [email or web address] Medical Oncology 01/15/24 documented as of this encounter Additional Source Comments The information contained in this document represents components of the legal health record. It is not the complete legal health record.[facility]
--- OUTSIDE RECORDS SUMMARY | 2025-08-08 12:13 | XMS_ITS | Encounter Summary ---
Author Organization [facility] Address [address] [place] [address] [place] [address] Phone Care Team Providers Care Clinical Sales Consultant Name Role Phone Jonas Evans MD Primary Care Provider Imelda Alvarenga MD, MPH Unavailable [phone] José Mckoy MD Unavailable [phone] Mak Bautista MD Unavailable [phone] Encounter Details Date Type Department Care Team (Late st Contact Info) Description 01/19/2024 Ancillary Orders Outside Imaging Mak Bautista MD [address] [place] [address] [email or web address] Social History Tobacco Use Types Packs/Day [...] on filedocumented in this encounter Care Teams Clinical Sales Consultant Relationship Specialty Start Date End Date Jonas Evans MD [address] [place] [address] [place] [address] PCP - General Internal Medicine 12/25/23 Imelda Alvarenga MD, MPH [address] [place] [address] [address] [place] [address] [email or web address] [email or web address] Oncology 01/15/24 José Mckoy MD [address] [place] [address] Urology 01/15/24 Mak Bautista MD [address] [place] [address] [email or web address] Medical Oncology 01/15/24 documented as of this encounter Additional Source Comments The information contained in this document represents components of the legal health record. It is not the complete legal health record.[facility]
--- OUTSIDE RECORDS SUMMARY | 2025-08-08 12:13 | XMS_ITS | Clinical Summary ---
Author Organization [facility] Address [address] [place] [address] [place] [address] Phone Care Team Providers Care Obstetric Anaesthetist Name Role Phone Jonas Evans MD Primary Care Provider Imelda Alvarenga MD, MPH Unavailable [phone] José Mckoy MD Unavailable [phone] Mak Bautista MD Unavailable [phone] Allergies No known active allergies Medications atorvastatin [...] on patient's age to complete this topic IPV VACCINES Aged Out No longer eligi ble [...] Date/Time Associated Diagnosis Comments BASIC METABOLIC PANEL (BMP) STAT 02/10/2024 11:58 AM EDT from Last 3 Months or Most Recently Relevant to Health Maintenance Results * (ABNORMAL) Basic metabolic panel (02/10/2024 11:58 AM EDT) SODIUM 137 136 - 145 mmol/L [facility] CHLORIDE 104 98 - 107 mmol/L [facility] POTASSIUM 4.1 3.4 - 5.0 mmol/L [facility] Comment:HEMOLYSIS_INDEX_OF_2 6,INTERPRET_WITH_CAUTION CO2 24 22 - 31 mmol/L [facility] BUN 16 6 - 23 mg/dL [facility] CREATININE 1.08 0.50 - 1.20 mg/dL [facility] GLUCOSE 166(H) 70 - 115 mg/dL [facility] CALCIUM 8.2(L) 8.6 - 10.7 mg/dL [facility] EGFR 75 >60 mL/min/1.7 3m2 [facility] Comment:Estimated glomerular filtration rate calculated using the CKD-EPI refit equation. ANION GAP 10 3 - 15 mmol/L [facility] Blood 02/10/2024 11:5 8 AM EDT 02/10/2024 12:03 PM EDT us José Mckoy MD LAB BLOOD BKR ORDERABLES Dayan l Result [facility] [address] [place] [address] from Last 3 Months or Most Recently Relevant to Health Maintenance Insurance [facility] [address] [place] [address] [facility] [address] [facility] Care Teams Obstetric Anaesthetist Relationship Specialty Start Date End Date Jonas Evans MD [address] [place] [id number] PCP - General Internal Medicine 12/25/23 Imelda Alvarenga MD, MPH [address] [place] [address], [facility]- [address] [address] [email or web address] 01/15/24 José Mckoy MD [address] [place] [address] [email or web address] Urology 01/15/24 Mak Bautista MD [address] [place] [address] [email or web address] Medical [email or web address] 01/15/24 Additional Source Comments The information contained in this document represents components of the legal health record. It is not the complete legal health record.[facility]
--- OUTSIDE RECORDS SUMMARY | 2025-08-08 12:13 | XMS_ITS | Encounter Summary ---
Author Organization [facility] Address [address] [place] [address] [address] [place] [address] Phone Care Team Providers Care Cmo & President Name Role Phone Jonas Evans MD Primary Care Provider Imelda Alvarenga MD, MPH Unavailable [phone] José Mckoy MD Unavailable [phone] Mak Bautista MD Unavailable [phone] Encounter Details Date Type Department Care Team (Late st Contact Info) Description 02/10/2024 Procedure Pass BWF Periop 1st floor [address] [place], [place] [id number] Social History Tobacco Use Types Packs/Day Years [...] on filedocumented in this encounter Care Teams Cmo & President Relationship Specialty Start Date End Date Jonas Evans MD [address] [place] [address] [place] [address] PCP - General Internal Medicine 12/25/23 Imelda Alvarenga MD, MPH [address] [place] [address], [place] [address] [place] [address] [email or web address] 01/15/24 José Mckoy MD [address] [place] [phone] Urology 01/15/24 Mak Bautista MD [address] [place] [phone] [email or web address] Medical Oncology 01/15/24 documented as of this encounter Additional Source Comments The information contained in this document represents components of the legal health record. It is not the complete legal health record.[facility]
== END 2025-08-08 10:27 | disposition home or self-care (01) ==
LOC: HO.LAB 10:26
PROVIDERS: PCP Internal Medicine; Visit Provider Internal Medicine
DX: I45.2 Bifascicular block (principal)
CPT/HCPCS: 36415; 80048

== ENCOUNTER 2025-08-12 10:40 | Outpatient (REF) | payer BC, SELFPAY ==
[2025-08-12 10:44] LABS: MANUAL DIFF FLAG NO
[2025-08-12 11:35] LABS: Hematocrit 43.9 % (42.0-52.0); Hemoglobin 14.3 g/dl (14.0-18.0); Imm Gran Abs Auto 0.01 X10*3/uL (0.00-0.03); Imm Gran Pct Auto 0.2 % (0.0-0.4); Lymphocytes Absolute Auto 2.4 X10*3/uL (1.2-4.9); Mean Corpuscular HGB Conc 32.6 g/dl (31.0-36.0); Mean Corpuscular Hemoglobin 31.1 pg (27.0-33.0); Mean Corpuscular Volume 95.4 fL (80.0-98.0); NRBC Abs Auto 0.000 X10*3/uL (0.0-0.012); NRBC Pct Auto 0.0 /100WBC (0.0-0.2); Platelet Count 217 X10*3/uL (160-400); Red Blood Count 4.60 X10*6/uL (4.60-5.80); White Blood Count 5.2 X10*3/uL (4.8-10.8)
[2025-08-12 11:38] LABS: Appearance Urine Clear; Glucose Urine UA Negative (Negative); PH 6.0 (5.0-9.0); Specific Gravity - Urine 1.020 (1.005-1.025)
[2025-08-12 11:55] LABS: Alanine Aminotransferase 20 U/L (0-40); Albumin Level 3.7 g/dL (3.5-5.0); Alkaline Phosphatase 69 U/L (39-117); Anion Gap 12 (12-20); Aspartate Amino Transferase 24 U/L (5-37); Blood Urea Nitrogen 13 mg/dL (9-16); Calcium 8.8 mg/dL (8.4-10.2); Carbon Dioxide 26 mmol/L (22-29); Chloride 110 mmol/L (96-108); Cholesterol 169 mg/dL (<200); Estimated Glomerular Filt Rate > 60; HDL Cholesterol 93 mg/dL (>40); Potassium 4.1 mmol/L (3.3-5.1); Sodium 144 mmol/L (135-145); Total Protein 6.5 g/dL (6.5-8.0); Triglycerides 66 mg/dL (<150)
[2025-08-12 12:07] LABS: PSA,Total (Free>4and<10) < 0.10 ng/mL (0.00-4.00)
[2025-08-12 12:35] LABS: Microalbum/Creatinine Ratio Ur 21.4 ug/mg cr (<30)
== END 2025-08-12 10:41 | disposition home or self-care (01) ==
LOC: HO.LNP 10:40
PROVIDERS: Visit Provider Internal Medicine
DX: Z12.5 Encounter for screening for malignant neoplasm of prostate (principal); I10 Essential (primary) hypertension; R73.09 Other abnormal glucose; E78.00 Pure hypercholesterolemia, unspecified; R97.20 Elevated prostate specific antigen [PSA]
CPT/HCPCS: 80053; 80061; 81001; 82043; 82570; 83036; 84153; 85025

== ENCOUNTER 2025-09-12 07:59 | Outpatient (AMB) | payer BC, SELFPAY ==
--- OUTSIDE RECORDS SUMMARY | 2024-08-12 03:00 | XMS_ITS ---
Author Organization Jonas Evans MD Address [address] [place], [place] [id number] Care Team Providers Care Nurse Informatics Educator Name Role Phone Jonas Evans Primary Care Provider [phone] Allergies No Known Allergies REASON FOR VISIT annual visit Medications Medication SIG (Take, Route, Frequency, Duration) Notes Start Date End Date Status Valsartan-hydroCHLOROthiazi de 320-25 MG TAKE 1 TABLET BY MOUTH EVERY DAY Active Atorvastatin Calcium 40 MG TAKE 1 TABLET BY MOUTH EVERY DAY Active Immunizations Vaccine Route Administration Date Status Comme nts Fluarix Quadrivalent - 150 Unknown 08/12/2024 Refused Social History Tobacco Use: Social History Observation Description Date Details (start date - stop date) Never Smoker NA - NA Tobacco Use/Smoking Question Answer Notes Patient is a nonsmoker Additional Findings: Tobacco Non-User Cu rrent non-smoker, currently using no form of tobacco Alcohol Screen Question Answer Notes Did you have a drink contain ing alcohol in the past year? Yes How often did you have a dri nk containing alcohol in the past year? 2 to 3 times a week (3 points) How many drinks did you have on a typical day when you were drinking in the past year? 1 or 2 drinks (0 point) How often did you have 6 or more drinks on one occasion in the past year? Never (0 point) Points 3 Interpretation Negative Problems Problem Type SNOMED Code ICD Code Onset Dates Problem Status W/U Status Risk Notes Problem [id number] History of prostate cancer (Z85.46) Active confirmed Vital Signs Blood pressure systolic 114 mm Hg 08/12/20 24 Blood pressure diastolic 60 mm Hg 024 Height 69.5 in 08/12/2024 Weight 210 lbs 08/12/2024 BMI 30.56 kg/m2 08/12/2024 weight is up 12 pounds since 02-09-24 Encounters Encounter Location Date Provider Diagnosis Jonas Evans MD [address] [place], [place] [phone] 08/12/2024 Jonas Evans History of prostate cancer Z85.46 ; Annual physical exam Z00.00 ; Essential hypertension I10 ; Prediabetes R73.09 ; Pure hypercholesterolemia E78.00 ; Colon cancer screening Z12.11 and Depression screening Z13.31 Assessments Encounter Date Diagnosis (ICD Code) Assessment Notes Treatment Notes Treatment Clinical Notes Section Notes 08/12/2024 History of prostate cancer (ICD-10 - Z85.46) doing great after surgery 08/12/2024 Annual physical exam (ICD-10 - Z00.00) labs reviewed and discussed with patient 08/12/2024 Essential hypertensi on (ICD-10 - I10) well controlled, will continue current regiment 08/12/2024 Prediabetes (ICD-10 - R73.09) stable, no need for medication at this time 08/12/2024 Pure hypercholesterolemia (ICD-10 - E78.00) stable, will contiue current regiment 08/12/2024 Colon cancer screeni ng (ICD-10 - Z12.11) guaiac negative 08/12/2024 Depression screening (ICD-10 - Z13.31) negative screen Plan Of Treatment Medication Medication Name Sig Start Date Stop Date Notes Valsartan-hydroCHLOROthiazid e 320-25 MG TAKE 1 TABLET BY MOUTH EVERY DAY Atorvastatin Calcium 40 MG TAKE 1 TABLET BY MOUTH EVERY DAY Treatment Notes Assessment Notes History of prostate cancer doing great a fter surgery Annual physical exam labs reviewed and d iscussed with patient Essential hypertension well controlled, will continue current regiment Prediabetes stable, no need for medication at this time Pure hypercholesterolemia stable, will c ontiue current regiment Colon cancer screening guaiac negative Depression screening negative screen Next Appt Details Follow Up: 6 Months, Reason: Provider Name:Jonas arias, 11/18/2025 01:45:00 PM, [address], [address], [place], [place], [phone], Provider Name:Jonas Ramsay ier, 02/09/2026 07:30:00 AM, [address], [address], [place], [place], [phone], Provider Name:Jonas Ramsay ier, 02/16/2026 09:00:00 AM, [address] [facility], [address], [place], [place], [phone], Provider Name:Jonas Ramsay ier, 08/15/2026 07:15:00 AM, [address], [address], [place], [phone], Provider Name:Jonas Ramsay ier, 08/22/2026 10:30:00 AM, [address] [facility], [address] [facility], [place], [phone], Progress Notes * Reji TUCKERDOB: (69 yo M)Acc No.[id number]:08/12/2024 Progress Notes Patient: Reji Patel Provider: Nohemy Evans MD :1955 A ge:69 Y S ex:Male Date:08/12/2024 Address:[address] [place] [id number] Subjective: * Chief Complaints: * A nnual visit * HPI: D epression Screening: PHQ-9 L ittle interest or pleasure in doing things N ot at all, F eeling down, depressed, or hopeless N ot at all, T rouble falling or staying asleep, or sleeping too much N ot at all, F eeling tired or having little energy N ot at all, P oor appetite or overeating N ot at all, F eeling bad about yourself or that you are a failure, or have let yourself or your family down N ot at all, T rouble concentrating on things, such as reading the newspaper or watching television N ot at all. I nterpretation and Intervention D epression Screening Findings N egative, F ollow-Up for Depression : review of PHQ-9 found negative result, no follow-up needed. patient is a 69 yo male here for yearly evaluation with review of recent labs and folow up of chronic issues. C ommunication Needs: Communication Needs D oes the patient have a hearing impairment N o, D oes the patient have a vision impairment? N o, D oes the patient have a cognition impairment? N o. S VENU Questions: SDOH Questions I n the past year have you been worried about losing housing? N o, I n the past year have you or any family members you live with been unable to get any of the following when it was really needed? Check all that apply: N one. F all Risk: History H ave you had any falls with injury in the past year? N o, H ave you had two or more falls in the past year? N o. * ROS: G eneral/Constitutional: Patient denies f atigue , headache. C hange in appetite?denies. C hills d enies. F ever d enies. O phthalmologic: Blurred vision d enies. D ischarge d enies. P ain d enies. E NT: Patient denies d ecreased sense of smell , any loss of taste , sore throat. D ecreased hearing d enies. S ore throat d enies. S wollen glands d enies. E ndocrine: Cold intolerance d enies. E xcessive thirst d enies. H eat intolerance d enies. W eight loss d enies. R espiratory: Cough d enies. S hortness of breath at rest d enies. S hortness of breath with exertion d enies. W heezing d enies. C ardiovascular: Chest pain at rest d enies. C hest pain with exertion?denies. I rregular heartbeat d enies. S hortness of breath d enies. ? G astrointestinal: Abdominal pain d enies. C hange in bowel habits d enies. D iarrhea d enies. N ausea d enies. R ectal bleeding d enies. V omiting d enies . G enitourinary: Blood in urine d enies. D ifficulty urinating d enies. F requent urination d enies. M usculoskeletal: Patient denies m uscle aches. P ainful joints d enies. W eakness d enies. P eripheral Vascular: Patient denies r ed and blue toes. S kin: Dry skin d enies. I tching d enies. D enies?Mole(s), changes in moles, new moles or any lesions of concern. D enies P hotosensitivity. R catracho d enies. N eurologic: Dizziness d enies. F ainting d enies. H eadache?denies. * Medical History: * Surgical History: * Hospitalization/Major Diagno stic Procedure: * Family History: F ather: 66 yrs. M other: 75 yrs, diagnosed with Alzheimer disease. 2 daughter(s) - healthy. . father, brain aneurysm, Denies mental health/substance abuse family history , Denies mental health/substance abuse family history. * Social History: T obacco Use: T obacco Use/Smoking P atient is a n onsmoker, A dditional Findings: Tobacco Non-User C urrent non-smoker, currently using no form of tobacco. D rugs/Alcohol: A lcohol Screen D id you have a drink containing alcohol in the past year? Y es, H ow often did you have a drink containing alcohol in the past year? 2 to 3 times a week (3 points), H ow many drinks did you have on a typical day when you were drinking in the past year? 1 or 2 drinks (0 point), H ow often did you have 6 or more drinks on one occasion in the past year? N ever (0 point), P oints 3 , I nterpretation N egative. M iscellaneous: C affeine: yes, frequency:, 1-2 cups per day. Children: yes. no Community involvements. Exercise: yes, walks and 20 trips up and down the stairs carrying 20-40 pounds QD. Housing: owning. Living with: spouse. Marital status: . Occupation: works full-time. Pets: cats. no Travel outside of the [place]. * Medications: T akingAtorvastatin Calcium 40 MG Tablet TAKE 1 TABLET BY MOUTH EVERY DAY Valsartan-hydroCHLOROthiazide 320-25 MG Tablet TAKE 1 TABLET BY MOUTH EVERY DAY Medication List reviewed and reconciled with the patientTaking Atorvastatin Calcium 40 MG Tablet TAKE 1 TABLET BY MOUTH EVERY DAY Taking Valsartan- hydroCHLOROthiazide 320-25 MG Tablet TAKE 1 TABLET BY MOUTH EVERY DAY Medication List reviewed and reconciled with the patient * Allergies: N .K.D.A.yes[Allergies Verified] Objective: * Vitals: H t: 69.5, Wt:210, BMI:30.56, BP:114/60 weight is up 12 pounds since 02-09-24. * P ast Orders: L ab:Complete Blood Count Auto Diff (Order Date - 08/05/2024) (Collection Date - 08/05/2024) Value Reference Range White Blood Count 5.3 4.8-10.8 - X10*3/uL Red Blood Count 4.41 L 4.60-5.80 - X10*6/uL Hemoglobin 14.1 14.0-18.0 - g/dl Hematocrit 42.5 42.0-52.0 - % Mean Corpuscular Volume 96.4 80.0-98.0 - fL Mean Corpuscular Hemoglobin 32.0 27.0-33.0 - pg Mean Corpuscular HGB Conc 33.2 31.0-36.0 - g/ dl Red Cell Distribution Width 12.6 11.0-16.0 - % Platelet Count 238 160-400 - X10*3/uL Mean Platelet Volume 10.6 9.4-12.4 - fL Neutrophils Percent Auto 41.4 L 45-73 - % Imm Gran Pct Auto 0.2 0.0-0.4 - % Lymphocytes Percent Auto 44.3 H 20-40 - % Monocytes Percent Auto 11.2 H 2-11 - % Eosinophils Percent Auto 2.1 0-4 - % Basophils Percent Auto 0.8 0-2 - % NRBC Pct Auto 0.0 0.0-0.2 - /100WBC Neutrophils Absolute Auto 2.2 2.0-8.3 - x10* 3/uL Imm Gran Abs Auto 0.01 0.00-0.03 - X10*3/uL Lymphocytes Absolute Auto 2.3 1.2-4.9 - X10* 3/uL Monocytes Absolute Auto 0.6 0.1-1.2 - X10*3/ uL Eosinophils Absolute Auto 0.1 0.0-0.4 - X10* 3/uL Basophils Absolute Auto 0.0 0.0-0.2 - X10*3/ uL NRBC Abs Auto 0.000 0.0-0.012 - X10*3/uL L ab:UA ClnCatch+Micro w/rflx Cult (Order Date - 08/05/2024) (Collection Date - 08/05/2024) Value Reference Range Color Urine Yellow - Appearance Urine Clear - PH 5.5 5.0-9.0 - Glucose Urine UA Negative Negative - mg/dL Urine Blood Negative Negative - Specific [place] - Urine 1.020 1.005-1.025 - Urine Protein Negative Neg-Trace - mg/dL Urine Ketones Negative Negative - mg/dL Nitrite Urine Negative Negative - Leukocyte Esterase Urine Negative Negative - RBC Urine 0-2 0-2 - /HPF WBC Urine 0-5 0-5 - /HPF Squamous Epithelial Cell Urine 0-2 0-2 - /HP F Bacteria Urine None Seen None Seen - Hyaline Casts Urine 0-2 0-2 - /LPF L ab:Comprehensive [place]. Panel Fast (Order Date - 08/05/2024) (Collection Date - 08/05/2024) Value Reference Range Sodium 141 135-145 - mmol/L Bilirubin Total 1.0 0.0-1.0 - mg/dL Aspartate Amino Transferase 22 5-37 - U/L Alanine Aminotransferase 20 0-40 - U/L Total Protein 6.9 6.5-8.0 - g/dL Albumin Level 3.7 3.5-5.0 - g/dL Alkaline Phosphatase 56 39-117 - U/L Potassium 3.9 3.3-5.1 - mmol/L Chloride 105 96-108 - mmol/L Carbon Dioxide 27 22-29 - mmol/L Anion Gap 13 12-20 - Blood Urea Nitrogen 17 H 9-16 - mg/dL Creatinine 0.81 0.5-1.4 - mg/dL Estimated Glomerular Filt Rate > 60 - Glucose Fasting 98 60-99 - mg/dL Calcium 8.5 8.4-10.2 - mg/dL L ab:Lipid Panel (Order Date - 08/05/2024) (Collection Date - 08/05/2024) Value Reference Range Triglycerides 65 <150 - mg/dL Cholesterol 181 <200 - mg/dL LDL Cholesterol Calculated 65 <100 - mg/dL HDL Cholesterol 103 >40 - mg/dL L ab:PSA,Total (Free>4and<10) (Order Date - 08/05/2024) (Collection Date - 08/05/2024) Value Reference Range PSA,Total (Free>4and<10) < 0.10 0.00-4.00 - ng/ mL L ab:Microalbumin, Random (Order Date - 08/05/2024) (Collection Date - 08/05/2024) Value Reference Range Creatinine Urine 199.66 - mg/dL Microalbumin Urine 10.0 - mg/L Microalbum Creatinine Ratio Ur 5.0 <30 - ug/ mg cr L ab:Hemoglobin A1c (Order Date - 08/05/2024) (Collection Date - 08/05/2024) Value Reference Range Hemoglobin A1c % 5.0 <6.0 - % Estimated Average Glucose 97 - mg/dL * Examination: G eneral Examination: GENERAL APPEARANCE: w ell developed, well nourished, in no acute distress. HEAD: n ormocephalic, atraumatic. EYES: p upils equal, round, reactive to light and accommodation, sclera non-icteric. EARS: n ormal. ORAL CAVITY: m ucosa moist. THROAT: c lear. NECK/THYROID: n alyson supple, full range of motion, no cervical lymphadenopathy, no bruits. SKIN: w arm and dry, no suspicious lesions. HEART: r egular rate and rhythm, S1, S2 normal, no murmurs.? LUNGS: c lear to auscultation bilaterally. ABDOMEN: s oft, nontender, nondistended, bowel sounds present, normal, no organomegaly , no masses palpable. RECTAL EXAM: n ormal tone, no external hemorrhoids, no masses palpable, no prostate/ scar from surgeryl, stool guaiac negative. MALE GENITOURINARY: u ncircumcised , no testicular mass , testes descended bilaterally. EXTREMITIES: n o clubbing, cyanosis, or edema. NEUROLOGIC: n onfocal, motor strength normal upper and lower extremities, sensory exam intact. Assessment: * Assessment: 1. A nnual physical exam - Z00.00 (Primary) 2 . H istory of prostate cancer - Z85.46?3. E ssential hypertension - I10 4 . P rediabetes - R73.09 5 . P ure hypercholesterolemia - E78.00 6 . C olon cancer screening - Z12.11 7 . D epression screening - Z13.31 Plan: * Treatment: 2. H istory of prostate cancer Notes: doing great after surgery 3. E ssential hypertension Continue Valsartan-hydroCHLOROthiazide Tablet, 320-25 MG, TAKE 1 TABLET BY MOUTH EVERY DAY. ? Notes: well controlled, will continue current regiment 4. P rediabetes Notes: stable, no need for medication at this time 5. P ure hypercholesterolemia Continue Atorvastatin Calcium Tablet, 40 MG, TAKE 1 TABLET BY MOUTH EVERY DAY. Notes: stable, will contiue current regiment 6. C olon cancer screening Notes: guaiac negative 7. D epression screening Notes: negative screen * Immunizations: Fluarix Quadrivalent - 150 (Not administered - Refused: Patient decision) * Procedure Codes: * Follow Up: 6 Months * * Sign off status: Completed true * Provider: Nohemy Evans MD Date: 10/12/2023 Generated for Nusrat baez/Christine/Maritzaransmitting on: 11/13/2024 08:10 AM EST History and Physical Notes * HPI (History of Present Illness) Category Sub-Category Detail Notes Category Not es Depression Screening PHQ-9 Little inte rest or pleasure in doing things: Not at all patient is a 69 yo male here for yearly evaluation with review of recent labs and folow up of chronic issues. Feeling down, depressed, or hopeless: No t at all Trouble falling or staying asleep, or sl eeping too much: Not at all Feeling tired or having little energy: N ot at all Poor appetite or overeating: Not at all Feeling bad about yourself o r that you are a failure, or have let yourself or your family down: Not at all Trouble concentrating on thi ngs, such as reading the newspaper or watching television: Not at all Interpretation and Intervention Depression Scree cathryn Findings: Negative Follow-Up for Depression: : review of PH Q-9 found negative result, no follow-up needed SDOH Questions SDOH Questions In the past year have you been worried about losing housing?: No In the past year have you or any family members you live with been unable to get any of the following when it was really needed? Check all that apply:: None Fall Risk History Have you had any falls with injury i n the past year?: No Have you had two or more falls in the year?: No Communication Needs Communication Needs Does the patient have a hearing impairment: No Does the patient have a vision impairmen t?: No Does the patient have a cognition impair ment?: No Examination Category Sub-Category Detail Notes Category Not es General Examination GENERAL APPEARANCE: well dev eloped, well nourished, in no acute distress HEAD: normocephalic, atrau matic EYES: pupils equal, round, reactive to light and accommodation, sclera non-icteric EARS: normal THROAT: clear NECK/THYROID: neck supple, full ra nge of motion, no cervical lymphadenopathy, no bruits HEART: regular rate and rhy thm, S1, S2 normal, no murmurs LUNGS: clear to auscultatio n bilaterally ABDOMEN: soft, nontender, non distended, bowel sounds present, normal, no organomegaly , no masses palpable NEUROLOGIC: nonfocal, motor stre ngth normal upper and lower extremities, sensory exam intact SKIN: warm and dry, no deborah picious lesions EXTREMITIES: no clubbing, cyanosi s, or edema MALE GENITOURINARY: uncircumcised , no t esticular mass , testes descended bilaterally RECTAL EXAM: normal tone, no exte rnal hemorrhoids, no masses palpable, no prostate/ scar from surgeryl, stool guaiac negative ORAL CAVITY: mucosa moist
--- OUTSIDE RECORDS SUMMARY | 2024-10-04 08:30 | XMS_ITS ---
Author Organization [facility] Address [address] [place] [address] Care Team Providers Care Hat And Cap Drying Room Attendant Name Role Phone Nathan TURPIN, Jonas Primary Care Provider Jamie Pittman [phone] REASON FOR VISIT rectal polyp Encounters Encounter Location Date Provider Diagnosis [facility] Outpatient [address] [place], [place] [phone] 10/04/2024 Jamie Sher Plan Of Treatment No Information Progress Notes * BARRY FRANCODOB:1955 (70 yo M)Acc No.[id number]:10/04/2024 COLON WITH MAC Patient: BARRY QUINTERO Provider: Paul Sher MD :1955 A ge:69 Y S ex:Male Date:10/04/2024 Address:[address] [place], [place] [phone] Pcp:Jonas Evans MD Subjective: * Chief Complaints: * R ectal polyp * The named appointment provid er may or may not be the originator of this progress note, and it is not deemed complete until electronically signed by the appointment provider. Sign off status: Pending * Provider: Paul Sher MD Date: 0 10/04/2024 Generated for Nusrat baez/Christine/Vikasmitting on: 11/13/2024 08:09 AM EST
--- OUTSIDE RECORDS SUMMARY | 2024-11-29 08:30 | XMS_ITS ---
Author Organization [facility] Address [address] [place] [address] Care Team Providers Care Spring Salvage Worker Name Role Phone Nathan TURPIN, Jonas Primary Care Provider Jamie Pittman [phone] REASON FOR VISIT rectal polyp Encounters Encounter Location Date Provider Diagnosis [facility] [place] Outpatient [address] [place], [place] [phone] 11/29/2024 Jamie Sher Abnormal abdominal CT scan R93.5 ; Personal history of adenomatous and serrated colon polyps Z86.0101 ; Diverticulosis of colon K57.30 and Internal hemorrhoids K64.8 Assessments Encounter Date Diagnosis (ICD Code) Assessment Notes Treatment Notes Treatment Clinical Notes Section Notes 11/29/[address] scan (ICD-10 - R93.5) 11/29/2024 Personal history of adenomatous and serrated colon polyps (ICD-10 - Z86.0101) 11/29/2024 Diverticulosis of colon (ICD-10 - K57.30) 11/29/2024 Internal hemorrhoids (ICD-10 - K64.8) Plan Of Treatment No Information Progress Notes * BARRY FRANCODOB:1955 (70 yo M)Acc No.[id number]:11/29/2024 COLON WITH MAC Patient: BARRY QUINTERO Provider: Paul Sher MD :1955 A ge:69 Y S ex:Male Date:11/29/2024 Address:[address] [place], [place] [phone] Pcp:Jonas Evans MD Subjective: * Chief Complaints: * R ectal polyp Assessment: * Assessment: 1. A bnormal abdominal CT scan - R93.5 (Primary) 2 . P ersonal history of adenomatous and serrated colon polyps - Z86.0101 3 . D iverticulosis of colon - K57.30 4 . I nternal hemorrhoids - K64.8 Plan: * Procedure Codes: 4 5378 DIAGNOSTIC COLONOSCOPY, Modifiers: 33 Billing Information: * Procedure Codes: 85669 DIAGNOSTIC COLONOSCOPY. Modifiers: 33 * The named appointment provid er may or may not be the originator of this progress note, and it is not deemed complete until electronically signed by the appointment provider. Sign off status: Pending * Provider: Paul Sher MD Date: 0 11/29/2024 Generated for Nusrat baez/Christine/Hemalitting on: 1 11/13/2024 08:10 AM EST
--- OUTSIDE RECORDS SUMMARY | 2025-02-04 02:00 | XMS_ITS ---
Author Organization Jonas Evans MD Address [address] [place], [place] [phone] Care Team Providers Care Sweet Pickle Maker Name Role Phone Jonas Evans Primary Care Provider [phone] Results Component Value Reference Range Notes Liver Panel Reviewed date:02/04/2025 12:28:40 PM Interpretation: Performing Lab:[facility], [address] [place] [phone] Notes/Report: Bilirubin Total 0.7 0.0-1.0 mg/dL Bilirubin Direct 0.3 0.0-0.5 mg/dL Aspartate Amino Transferase 22 5-37 U/L Alanine Aminotransferase 17 0-40 U/L Total Protein 6.7 6.5-8.0 g/dL Albumin Level 3.6 3.5-5.0 g/dL Alkaline Phosphatase 66 39-117 U/L Glucose Fasting Reviewed date:02/04/2025 12:28:14 PM Interpretation: Performing Lab:[facility], [address] [place] [phone] Notes/Report: Glucose Fasting 78 60-99 mg/dL Lipid Panel with Reflex Reviewed date:02/04/2025 12:27:58 PM Interpretation: Performing Lab:[address] [phone] Notes/Report: Triglycerides 67 <150 mg/dL Desirable Triglyceride: less than 150 mg/dL Borderline High Triglyceride 150-199 mg/dL High Triglyceride: 200-499 mg/dL Very High Triglyceride: greater than or equal to 5OO mg/dL Cholesterol 176 <200 mg/dL Desirable Cholesterol: less than 200 mg/dL Borderline High Cholesterol: 200-239 mg/dL High Cholesterol: greater than 239 mg/dL LDL Cholesterol Calculated 74 <100 mg/dL Desirable LDL: less than 100 mg/dL Near Optimal/Above Optimal LDL: 110-129 mg/dL Borderline High LDL: 130-159 mg/dL High LDL: 160-189 mg/dL Very High LDL: greater than or equal to 190 mg/dL HDL Cholesterol 89 >40 mg/dL Desirable HDL: greater than 40 mg/dL Note: This HDL assay may give artificially low results in patients with liver disease. Hemoglobin A1c Reviewed date:02/04/2025 12:28:06 PM Interpretation: Performing Lab:[facility], [address] [place] [phone] Notes/Report: Hemoglobin A1c % 5.0 <6.0 % [...] average glucose, using the formula of the N6P-Wshahbs Average Glucose study (ADAG), Diabetes Care, Vol.31,#8, Apr. 2007 REASON FOR VISIT FASTING LIPIDS Encounters Encounter Location Date Provider Diagnosis Jonas Evans MD [address] [place] [phone] 02/04/2025 Jonas Evans Prediabetes R73.09 a nd Pure hypercholesterolemia E78.00 Assessments Encounter Date Diagnosis (ICD Code) Assessment Notes Treatment Notes Treatment Clinical Notes Section Notes 02/04/2025 Prediabetes (ICD-10 - R73.09) 02/04/2025 Pure hypercholesterolemia (ICD-10 - E78.00) Plan Of Treatment Next Appt Details Provider Name:Jonas arias, 11/18/2025 01:45:00 PM, [address] [place] [address], [address], [phone], Provider Name:Jonas arias, 02/09/2026 07:30:00 AM, [address] [place] [address], [address], [phone], Provider Name:Jonas Ramsay ier, 02/16/2026 09:00:00 AM, [address], [place], [phone], Provider Name:Jonas [place] ier, 08/15/2026 07:15:00 AM, [address], [address], [place], [phone], Provider Name:Jonas [place]ay ier, 08/22/2026 10:30:00 AM, [address], [address], [place], [phone], Progress Notes * Reji TUCKERDOB: (70 yo M)Acc No.[id number]:02/04/2025 Progress Note Patient: Reji QUINTERO Provider: Nohemy Evans MD :1955 A ge:69 Y S ex:Male Date:02/04/2025 Address:[address] [place] [address] [id number] Subjective: * Chief Complaints: * 1 . FASTING LIPIDS. * Medical History: Objective: * Vitals: Assessment: * Assessment: 1. P rediabetes - R73.09 (Primary) 2 . P ure hypercholesterolemia - E78.00? Plan: * Treatment: 2. P ure hypercholesterolemia L AB: Liver Panel (Collection Date & Time - 02/04/2025 07:00 AM) L AB: Glucose Fasting (Collection Date & Time - 02/04/2025 07:00 AM) L AB: Lipid Panel with Reflex (Collection Date & Time - 02/04/2025 07:00 AM) L AB: Hemoglobin A1c (Collection Date & Time - 02/04/2025 07:00 AM) * Procedure Codes: 3 6415 VENIPUNCT, ROUTINE* * * The named appointment provid er may or may not be the originator of this progress note, and it is not deemed complete until electronically signed by the appointment provider. Sign off status: Pending * Provider: Nohemy Evans MD Date: 0 02/04/2025 Generated for Nusrat baez/Christine/Kayleigh on: 1 11/13/2024 08:09 AM EST
--- OUTSIDE RECORDS SUMMARY | 2025-02-10 02:45 | XMS_ITS ---
Author Organization Jonas Evans MD Address [address] [place] [phone] Care Team Providers Care Hot Baller Name Role Phone Jonas Evans Primary Care Provider Allergies No Known Allergies REASON FOR VISIT 6 MO F/U Medications Medication SIG (Take, Route, Frequency, Duration) Notes Start Date End Date Status Valsartan-hydroCHLOROthiazi de 320-25 MG TAKE 1 TABLET BY MOUTH EVERY DAY Active Atorvastatin Calcium 40 MG TAKE 1 TABLET BY MOUTH EVERY DAY Active Vital Signs Blood pressure systolic 140 mm Hg 02/11/20 25 Blood pressure diastolic 62 mm Hg 025 Height 69.5 in 02/10/2025 Weight 204 lbs 02/10/2025 BMI 29.69 kg/m2 02/10/2025 weight is down 6 pounds [facility] 08-12-24 Encounters Encounter Location Date Provider Diagnosis Jonas Evans MD [address] [place] [phone] 02/10/2025 Jonas Evans Essential hypertensi on I10 ; Prediabetes R73.09 and Pure hypercholesterolemia E78.00 Assessments Encounter Date Diagnosis (ICD Code) Assessment Notes Treatment Notes Treatment Clinical Notes Section Notes 02/10/2025 Essential hypertensi on (ICD-10 - I10) good control, will continue current regiment 02/10/2025 Prediabetes (ICD-10 - R73.09) well controlled, no need for medication at thios time, will continue to monitor 02/10/2025 Pure hypercholesterolemia (ICD-10 - E78.00) doing well on meds, will continue current regiment Plan Of Treatment Medication Medication Name Sig Start Date Stop Date Notes Valsartan-hydroCHLOROthiazid e 320-25 MG TAKE 1 TABLET BY MOUTH EVERY DAY Atorvastatin Calcium 40 MG TAKE 1 TABLET BY MOUTH EVERY DAY Treatment Notes Assessment Notes Essential hypertension good control, jeanine l continue current regiment Prediabetes well controlled, no need for medication at thios time, will continue to monitor Pure hypercholesterolemia doing well on meds, will continue current regiment Next Appt Details Provider Name:Jonas arias, 11/18/2025 01:45:00 PM, [address] [place] [address], [address], [phone], Provider Name:Jonas arias, 02/09/2026 07:30:00 AM, [address] [place] [address], [address], [phone], Provider Name:Jonas arias, 02/16/2026 09:00:00 AM, [address] [place] [address], [phone], Provider Name:Jonas arias, 08/15/2026 07:15:00 AM, [address] [place] [address], [address], [phone], Provider Name:Jonas arias, 08/22/2026 10:30:00 AM, [address] [place] [address], [address], [phone], Progress Notes * Reji TUCKERDOB: (69 yo M)Acc No.[id number]:02/10/2025 Progress Notes Patient: Holly OBRIEN Reji Barnes Provider: Nohemy Evans MD :1955 A ge:69 Y S ex:Male Date:02/10/2025 Address:[address] [place], [place] [phone] Subjective: * Chief Complaints: * 6 MO F/U * HPI: S ymptom(s): patient is a 69 yo male here for 6 month follow up visit/ having problems with hip. * ROS: G eneral/Constitutional: Denies C hills. D enies F atigue. D enies F ever. D enies H eadache. E NT: Denies S ore throat. R espiratory: Denies C ough. D enies S hortness of breath at rest. D enies S hortness of breath with exertion. G astrointestinal: Denies D iarrhea. D enies N ausea. M usculoskeletal: Patient complaining of o rsening left hip pain. ? * Medical History: * Surgical History: * Hospitalization/Major Diagno stic Procedure: * Medications: T akingValsartan-hydroCHLOROthiazide 320-25 MG Tablet TAKE 1 TABLET BY MOUTH EVERY DAY Atorvastatin Calcium 40 MG Tablet TAKE 1 TABLET BY MOUTH EVERY DAY Medication List reviewed and reconciled with the patientTaking Valsartan-hydroCHLOROthiazide 320-25 MG Tablet TAKE 1 TABLET BY MOUTH EVERY DAY Taking Atorvastatin Calcium 40 MG Tablet TAKE 1 TABLET BY MOUTH EVERY DAY Medication List reviewed and reconciled with the patient * Allergies: N .K.D.A.yes[Allergies Verified] Objective: * Vitals: H t: 69.5, Wt: 204, BMI:29.69, BP:140/62, Repeat BP:120/60, Wt-k.53. weight is down 6 pounds since 08-12-24. * Examination: G eneral Examination: GENERAL APPEARANCE: a lert, well hydrated, in no distress.? HEAD: n ormocephalic. SKIN: g ood turgor. HEART: n o murmurs, rubs, gallops, regular rate and rhythm.? LUNGS: n o wheezes, rales, rhonchi, good air movement, clear to auscultation bilaterally. Assessment: * Assessment: 1. E ssential hypertension - I10 (Primary) 2 . P rediabetes - R73.09 ? 3 . P ure hypercholesterolemia - E78.00 Plan: * Treatment: 2. P rediabetes Notes: well controlled, no need for medication at thios time, will continue to monitor 3. P ure hypercholesterolemia Continue Atorvastatin Calcium Tablet, 40 MG, TAKE 1 TABLET BY MOUTH EVERY DAY. Notes: doing well on meds, will continue current regiment * Procedure Codes: * * Sign off status: Completed true * Provider: Nohemy Evans MD Date: 0 02/10/2025 Generated for Nusrat baez/Christine/Kayleigh on: 1 11/13/2024 08:10 AM EST History and Physical Notes * HPI (History of Present Illness) Category Sub-Category Detail Notes Category Not es Symptom(s) patient is a 69 yo male here for 6 month follow up visit/ having problems with hip. Examination Category Sub-Category Detail Notes Category Not es General Examination GENERAL APPEARANCE: alert, w ell hydrated, in no distress HEAD: normocephalic HEART: no murmurs, rubs, ga llops, regular rate and rhythm LUNGS: no wheezes, rales, r honchi, good air movement, clear to auscultation bilaterally SKIN: good turgor
--- OUTSIDE RECORDS SUMMARY | 2025-04-26 09:15 | XMS_ITS ---
Author Organization Jonas Evans MD Address [address] [place] [phone] Care Team Providers Care Manager Monitoring Name Role Phone Jonas Evans Primary Care Provider REASON FOR VISIT referral Encounters Encounter Location Date Provider Diagnosis Jonas Evans MD [address] [place] [address] [address] [place] [phone] 04/26/2025 Jonas Evans Plan Of Treatment Next Appt Details Provider Name:Jonas Ramsay ier, 11/18/2025 01:45:00 PM, [address] [place] [address], [phone], Provider Name:Jonas arias, 02/09/2026 07:30:00 AM, [address] [place] [address], [phone], Provider Name:Jonas Ramsay ier, 02/16/2026 09:00:00 AM, [address] [place] [address], [phone], Provider Name:Jonas Ramsay ier, 08/15/2026 07:15:00 AM, [address] [place] [address], [phone], Provider Name:Jonas arias, 08/22/2026 10:30:00 AM, [address] [place] [address], [phone], Progress Notes * Reji TUCKERDOB: 6 (69 yo M)Acc No.[id number]:04/26/2025 Patient: Reji QUINTERO :1955 A ge:69 Y S ex:Male Address:[address] [place] [phone] * true * Date: Generated for Nusrat baez/Christine/Vikasmitting on: 11/13/2024 08:09 AM EST
--- OUTSIDE RECORDS SUMMARY | 2025-05-20 07:30 | XMS_ITS ---
Author Organization Jonas Evans MD Address [address] [place] [phone] Care Team Providers Care Swimming Pool Cleaner Name Role Phone Jonas Evans Primary Care Provider Allergies No Known Allergies REASON FOR VISIT ? pre op clearance Check BP, Hip surgery 05-27-25 Medications Medication SIG (Take, Route, Frequency, Duration) Notes Start Date End Date Status Valsartan-hydroCHLOROthia zide 320-25 MG TAKE 1 TABLET BY MOUTH EVERY DAY Not-Taking Atorvastatin Calcium 40 MG TAKE 1 TABLET BY MOUTH EVERY DAY Active Vital Signs Blood pressure systolic 102 mm Hg 05/20/20 25 Blood pressure diastolic 48 mm Hg 025 Height 69.5 in 05/20/2025 Weight 184 lbs 05/20/2025 BMI 26.78 kg/m2 05/20/2025 weight is down 20 pounds sin 02-10-25 Encounters Encounter Location Date Provider Diagnosis Jonas Evans MD [address] [place] [phone] 05/20/2025 Jonas Evans Hypotension due to drugs I95.2 and Abnormal weight loss R63.4 Assessments Encounter Date Diagnosis (ICD Code) Assessment Notes Treatment Notes Treatment Clinical Notes Section Notes 05/20/2025 Hypotension due to drugs (ICD-10 - I95.2) 05/20/2025 Abnormal weight loss (ICD-10 - R63.4) not clear as to why this is happening but even if there is something wrong he wants to have a good hip so will hold off evaluation until after his hip surgery 05/20/2025 Other the shortness of breath doesn t sound cardiac. seems like he just gets weak from the hypotension. will recheck in 3 days Plan Of Treatment Treatment Notes Assessment Notes Abnormal weight loss not clear as to why this is happening but even if there is something wrong he wants to have a good hip so will hold off evaluation until after his hip surgery Other the shortness of breath doesn t sound cardiac. seems like he just gets weak from the hypotension. will recheck in 3 days Next Appt Details Provider Name:Jonas Ramsay ier, 11/18/2025 01:45:00 PM, [address] [place] [address], [address], [phone], Provider Name:Jonas Ramsay ier, 02/09/2026 07:30:00 AM, [address] [place] [address], [address], [phone], Provider Name:Jonas Rudi Devendra ier, 02/16/2026 09:00:00 AM, [address] [place] [address], [phone], Provider Name:Jonas Rudi Devendra ier, 08/15/2026 07:15:00 AM, [address] [place] [address], [phone], Provider Name:Jonas Rudi Devendra nunezr, 08/22/2026 10:30:00 AM, [address] [place] [address], [address], [phone], Progress Notes * Reji TUCKERDOB: (69 yo M)Acc No.[id number]:05/20/2025 Progress Notes Patient: Reji QUINTERO J Provider: Nohemy Evans MD :1955 A ge:69 Y S ex:Male Date:05/20/2025 Address:[address] [place] [phone] Subjective: * Chief Complaints: * ? pre op clearance Check BPHip surgery 05-27-25 * HPI: S ymptom(s): pt is a 69 yo male here today because he ahs been getting dizzy especially when bending over. today is feeling much better. every half hour has to sit down and rest. still losing weight. * ROS: G eneral/Constitutional: Denies C hills. D enies F atigue. D enies F ever. D enies H eadache. E NT: Denies S ore throat. R espiratory: Denies C ough. D enies S hortness of breath at rest. D enies S hortness of breath with exertion. C ardiovascular: Denies C hest pain at rest. D enies C hest pain with exertion. A dmits D izziness. D enies P alpitations. A dmits S hortness of breath. G astrointestinal: Denies D iarrhea. D enies N ausea. * Medical History: * Surgical History: * Hospitalization/Major Diagno stic Procedure: * Medications: T akingAtorvastatin Calcium 40 MG Tablet TAKE 1 TABLET BY MOUTH EVERY DAY Taking Atorvastatin Calcium 40 MG Tablet TAKE 1 TABLET BY MOUTH EVERY DAY Not-Taking/PRNValsartan-hydroCHLOROthiazide 320-25 MG Tablet TAKE 1 TABLET BY MOUTH EVERY DAY Medication List reviewed and reconciled with the patientNot-Taking/PRN Valsartan-hydroCHLOROthiazide 320-25 MG Tablet TAKE 1 TABLET BY MOUTH EVERY DAY Medication List reviewed and reconciled with the patient * Allergies: N .K.D.A.yes[Allergies Verified] Objective: * Vitals: H t: 69.5, Wt: 184, BMI:26.78, BP:102/48, Wt-k.46. weight is down 20 pounds since 02-10-25. * Examination: G eneral Examination: GENERAL APPEARANCE: a lert, well hydrated, in no distress.? HEAD: n ormocephalic. LYMPH NODES: n o cervical adenopathy. SKIN: n o suspicious lesions. HEART: n o murmurs, rubs, gallops. LUNGS: g ood air movement, no wheezes, rales, rhonchi, clear to auscultation bilaterally. ABDOMEN: n o hepatosplenomegaly, soft, nontender, nondistended. EXTREMITIES: n o edema. Assessment: * Assessment: 1. H ypotension due to drugs - I95.2 (Primary) 2 . A bnormal weight loss - R63.4 Plan: * Treatment: 2. O thers Notes: the shortness of breath doesn t sound cardiac. seems like he just gets weak from the hypotension. will recheck in 3 days ? * Procedure Codes: * * Sign off status: Completed true * Provider: Nohemy Evans MD Date: 0 05/20/2025 Generated for Nusrat baez/Christine/Hemalitting on: 1 11/13/2024 08:10 AM EST History and Physical Notes * HPI (History of Present Illness) Category Sub-Category Detail Notes Category Not es Symptom(s) pt is a 69 yo m lauro here today because he ahs been getting dizzy especially when bending over. today is feeling much better. every half hour has to sit down and rest. still losing weight Examination Category Sub-Category Detail Notes Category Not es General Examination GENERAL APPEARANCE: alert, w ell hydrated, in no distress HEAD: normocephalic HEART: no murmurs, rubs, ga llops LUNGS: good air movement, n o wheezes, rales, rhonchi, clear to auscultation bilaterally ABDOMEN: no hepatosplenomegal y, soft, nontender, nondistended SKIN: no suspicious lesion s EXTREMITIES: no edema LYMPH NODES: no cervical adenopat hy
--- OUTSIDE RECORDS SUMMARY | 2025-05-20 07:47 | XMS_ITS ---
Author Organization Jonas Evans MD Address [address] [place] [phone] Care Team Providers Care Certified Nursing Assistant Name Role Phone Jonas Evans Primary Care Provider REASON FOR VISIT Surg cancelled Encounters Encounter Location Date Provider Diagnosis Jonas Evans MD [address] [place] [address] [place] [phone] 05/20/2025 Jonas Evans Plan Of Treatment Next Appt Details Provider Name:Jonas Ramsay ier, 11/18/2025 01:45:00 PM, [address] [place] [address], [phone], Provider Name:Jonas arias, 02/09/2026 07:30:00 AM, [address] [place] [address], [phone], Provider Name:Jonas nunezr, 02/16/2026 09:00:00 AM, [address] [place] [address], [phone], Provider Name:Jonas nunezr, 08/15/2026 07:15:00 AM, [address] [place] [address], [phone], Provider Name:Jonas arias, 08/22/2026 10:30:00 AM, [address] [place] [address], [phone], Progress Notes * Reji TUCKERB: 6 (69 yo M)Acc No.[id number]:05/20/2025 Patient: Reji QUINTERO :1955 A ge:69 Y S ex:Male Address:[address] [place] [phone] * true * Date: Generated for Nusrat baez/Christine/Vikasmitting on: 11/13/2024 08:11 AM EST
--- OUTSIDE RECORDS SUMMARY | 2025-05-23 03:15 | XMS_ITS ---
Author Organization Jonas Evans MD Address [address] [place] [phone] Care Team Providers Care Prison Officer Name Role Phone Jonas Evans Primary Care Provider [phone] Allergies No Known Allergies REASON FOR VISIT BP check per Anibal Cramer cancelled surgery Patient needs a Stress Test, Patient feeling much better off meds Medications Medication SIG (Take, Route, Frequency, Duration) Notes Start Date End Date Status Valsartan-hydroCHLOROthia zide 320-25 MG TAKE 1 TABLET BY MOUTH EVERY DAY Not-Taking Atorvastatin Calcium 40 MG TAKE 1 TABLET BY MOUTH EVERY DAY Active Vital Signs Blood pressure systolic 142 mm Hg 05/23/20 25 Blood pressure diastolic 70 mm Hg 025 Height 69.5 in 05/23/2025 Weight 183 lbs 05/23/2025 BMI 26.63 kg/m2 05/23/2025 Encounters Encounter Location Date Provider Diagnosis Jonas Evans MD [address] [place] [phone] 05/23/2025 Jonas Evans RBBB I45.10 ; Hypotension due to drugs I95.2 and Shortness of breath R06.02 Assessments Encounter Date Diagnosis (ICD Code) Assessment Notes Treatment Notes Treatment Clinical Notes Section Notes 05/23/2025 RBBB (ICD-10 - I45.10) 05/23/2025 Hypotension due to drugs (ICD-10 - I95.2) has resolved 05/23/2025 Shortness of breath (ICD-10 - R06.02) will get the stress test as the preop cancelled the surgery until we get the stress/ test is booked at [facility] 05-24-25 at 10am Plan Of Treatment Treatment Notes Assessment Notes Hypotension due to drugs has resolved Shortness of breath will get the stress test as the preop cancelled the surgery until we get the stress/ test is booked at [facility] 05-24-25 at 10am Pending Test Test Name Order Date KATIUSKA coffey stress w fito 05/23/2025 Next Appt Details Follow Up: after stress, [place]wood son: Provider Name:Jonas nunezr, 11/18/2025 01:45:00 PM, [address] [place] [address], [address], [phone], Provider Name:Jonas unnezr, 02/09/2026 07:30:00 AM, [address] [place] [address], [address], [phone], Provider Name:Jonas nunezr, 02/16/2026 09:00:00 AM, [address] [place] [address], [address], [phone], Provider Name:Jonas nunezr, 08/15/2026 07:15:00 AM, [address] [place] [address], [address], [phone], Provider Name:Jonas nunezr, 08/22/2026 10:30:00 AM, [address] [place] [address], [address], [phone], Progress Notes * Reji TUCKERDOB: (69 yo M)Acc No.[id number]:05/23/2025 Progress Notes Patient: Reji QUINTERO J Provider: Nohemy Evans MD :1955 A ge:69 Y S ex:Male Date:05/23/2025 Address:[address] [place], [place] [id number] Subjective: * Chief Complaints: * B P check per Dr Pedraza cancelled surgery Patient needs a Stress TestPatient feeling much better off meds * HPI: S ymptom(s): patient is a 69 yo male here for evaluation of BP following cancellation of planned Orthopedic surgery bp i sgood and he feels all better. breathing better. eating more this weekend than the last month. * ROS: G eneral/Constitutional: Denies C hills. D enies F atigue. D enies F ever. D enies H eadache. E NT: Denies S ore throat. R espiratory: Denies C ough. D enies S hortness of breath at rest. D enies S hortness of breath with exertion. C ardiovascular: Denies C hest pain at rest. D enies C hest pain with exertion. D enies D izziness. D enies P alpitations. D enies S hortness of breath. G astrointestinal: Denies D iarrhea. D enies N ausea. * Medical History: * Surgical History: * Hospitalization/Major Diagno stic Procedure: * Medications: T akingAtorvastatin Calcium 40 MG Tablet TAKE 1 TABLET BY MOUTH EVERY DAY Taking Atorvastatin Calcium 40 MG Tablet TAKE 1 TABLET BY MOUTH EVERY DAY Not-Taking/PRNValsartan-hydroCHLOROthiazide 320-25 MG Tablet TAKE 1 TABLET BY MOUTH EVERY DAY Not-Taking/PRN Valsartan-hydroCHLOROthiazide 320-25 MG Tablet TAKE 1 TABLET BY MOUTH EVERY DAY * Allergies: N .K.D.A.yes[Allergies Verified] Objective: * Vitals: H t: 69.5, Wt: 183, BMI:26.63, BP:142/70, Wt-k.01. * Examination: G eneral Examination: GENERAL APPEARANCE: a lert, well hydrated, in no distress.? HEAD: n ormocephalic. SKIN: g ood turgor. HEART: n o murmurs, rubs, gallops, regular rate and rhythm.? LUNGS: n o wheezes, rales, rhonchi, good air movement, clear to auscultation bilaterally. Assessment: * Assessment: 1. R BBB - I45.10 (Primary) 2 . H ypotension due to drugs - I95.2 ? 3 . S hortness of breath - R06.02 Plan: * Treatment: 2.?Hypotension due to drugs? Notes: has resolved??3.?Shortness of breath? Notes: will get the stress test as the preop cancelled the surgery until we get the stress/ test isbooked at [facility] 05-24-25 at 10am?? * Procedure Codes: * Follow Up: a fter stress * * Sign off status: Completed true * Provider: Nohemy Evans MD Date: 0 05/23/2025 Generated for Nusrat baez/Christine/Vikasmitting on: 11/13/2024 08:11 AM EST History and Physical Notes * HPI (History of Present Illness) Category Sub-Category Detail Notes Category Not es Symptom(s) patient is a 69 yo male here for evaluation of BP following cancellation of planned Orthopedic surgery bp i sgood and he feels all better. breathing better. eating more this weekend than the last month Examination Category Sub-Category Detail Notes Category Not es General Examination GENERAL APPEARANCE: alert, w ell hydrated, in no distress HEAD: normocephalic HEART: no murmurs, rubs, ga llops, regular rate and rhythm LUNGS: no wheezes, rales, r honchi, good air movement, clear to auscultation bilaterally SKIN: good turgor
--- OUTSIDE RECORDS SUMMARY | 2025-06-02 07:45 | XMS_ITS ---
Author Organization Jonas Evans MD Address [address] [place] [phone] Care Team Providers Care Dentistry Professor Name Role Phone Jonas Evans Primary Care Provider [phone] Allergies No Known Allergies REASON FOR VISIT WANTS TO SPEAK WITH DR Medications Medication SIG (Take, Route, Frequency, Duration) Notes Start Date End Date Status hydroCHLOROthiazide 25 MG 1 tablet in th e morning Orally Once a day for 10 days 06/02/2025 Active Atorvastatin Calcium 40 MG TAKE 1 TABLET BY MOUTH EVERY DAY Active Vital Signs Blood pressure systolic 134 mm Hg 06/02/20 25 Blood pressure diastolic 70 mm Hg 025 Height 69.5 in 06/02/2025 Encounters Encounter Location Date Provider Diagnosis Jonas Evans MD [address] [place] [phone] 06/02/2025 Jonas Evans Leg edema R60.0 Assessments Encounter Date Diagnosis (ICD Code) Assessment Notes Treatment Notes Treatment Clinical Notes Section Notes 06/02/2025 Leg edema (ICD-10 - R60.0) related to stopping the hctz, patient verbalizedunderstnading of medication and directions Plan Of Treatment Medication Medication Name Sig Start Date Stop Date Notes hydroCHLOROthiazide 25 MG 1 tablet in th e morning Orally Once a day for 10 days 06/02/2025 Valsartan-hydroCHLOROthiazid e 320-25 MG TAKE 1 TABLET BY MOUTH EVERY DAY Treatment Notes Assessment Notes Leg edema related to stopping the hctz, patient verbalizedunderstnading of medication and directions Next Appt Details Provider Name:Jonas arias, 11/18/2025 01:45:00 PM, [address], [address], [place], [place], [phone], Provider Name:Jonas Ramsay ier, 02/09/2026 07:30:00 AM, [address] [facility], [address], [place], [phone], Provider Name:Jonas Ramsay ier, 02/16/2026 09:00:00 AM, [address] [facility], Suite [facility], [place], [phone], Provider Name:Jonas Ramsay ier, 08/15/2026 07:15:00 AM, [address] [facility], [address] [facility], [place], [phone], Provider Name:Jonas Ramsay ier, 08/22/2026 10:30:00 AM, [address] [place] [address], [address] [place] [address] [place], [phone], Progress Notes * Reji TUCKERDOB: (69 yo M)Acc No.[id number]:06/02/2025 Progress Notes Patient: Reji QUINTERO J Provider: Nohemy Evans MD :1955 A ge:69 Y S ex:Male Date:06/02/2025 Address:[address] [place], [place] [id number] Subjective: * Chief Complaints: * W ANTS TO SPEAK WITH DR Wallace HPI: S ymptom(s): patient is a 69 yo male here for follow up. * ROS: G eneral/Constitutional: Denies C hills. [...] Verified] Objective: * Vitals: H t: 69.5, BP:134/70. * Examination: G eneral Examination: GENERAL APPEARANCE: w ell developed, well nourished. HEAD: n ormocephalic. HEART: n o murmurs, rubs, gallops, regular rate and rhythm.? LUNGS: n o wheezes, rales, rhonchi, good air movement, clear to auscultation bilaterally. EXTREMITIES: 1 + pitting edema lower extremities for a few days. Assessment: * Assessment: 1. L eg edema - R60.0 (Primary) Plan: * Treatment: * Procedure Codes: * * Sign off status: Completed true * Provider: Nohemy Evans MD Date: 0 06/02/2025 Generated for Nusrat baez/Christine/Kayleigh on: 11/13/2024 08:10 AM EST History and Physical Notes * HPI (History of Present Illness) Category Sub-Category Detail Notes Category Not es Symptom(s) patient is a 69 yo male here for follow up Examination Category Sub-Category Detail Notes Category Not es General Examination GENERAL APPEARANCE: well developed , well nourished HEAD: normocephalic HEART: no murmurs, rubs, ga llops, regular rate and rhythm LUNGS: no wheezes, rales, r honchi, good air movement, clear to auscultation bilaterally EXTREMITIES: 1+ pitting edema low er extremities for a few days
--- OUTSIDE RECORDS SUMMARY | 2025-08-12 02:00 | XMS_ITS ---
Author Organization Jonas Evnas MD Address [address] [place], [place] [id number] Care Team Providers Care Vault Clerk Name Role Phone Jonas Evans Primary Care Provider Results Component Value Reference Range Notes Complete Blood Count Auto Di ff Reviewed date:08/12/2025 12:42:38 PM Interpretation: Performing Lab:[facility], [address] [place] [phone] Notes/Report: White Blood Count 5.2 4.8-10.8 X10*3/uL Red Blood Count 4.60 4.60-5.80 X10*6/uL Hemoglobin 14.3 14.0-18.0 g/dl Hematocrit 43.9 42.0-52.0 % Mean Corpuscular Volume 95.4 80.0-98.0 fL Mean Corpuscular Hemoglobin 31.1 27.0-33.0 pg Mean Corpuscular HGB Conc 32.6 31.0-36.0 g/dl Red Cell Distribution Width 13.2 11.0-16.0 % Platelet Count 217 160-400 X10*3/uL Mean Platelet Volume 11.7 9.4-12.4 fL Neutrophils Percent Auto 38.0 45-73 % Imm Gran Pct Auto 0.2 0.0-0.4 % Lymphocytes Percent Auto 45.4 20-40 % Monocytes Percent Auto 13.0 2-11 % Eosinophils Percent Auto 2.3 0-4 % Basophils Percent Auto 1.1 0-2 % NRBC Pct Auto 0.0 0.0-0.2 /100WBC Neutrophils Absolute Auto 2.0 2.0-8.3 x10*3/u L Imm Gran Abs Auto 0.01 0.00-0.03 X10*3/uL Lymphocytes Absolute Auto 2.4 1.2-4.9 X10*3/u L Monocytes Absolute Auto 0.7 0.1-1.2 X10*3/uL Eosinophils Absolute Auto 0.1 0.0-0.4 X10*3/u L Basophils Absolute Auto 0.1 0.0-0.2 X10*3/uL NRBC Abs Auto 0.000 0.0-0.012 X10*3/uL Lipid Panel Reviewed date:08/12/2025 12:42:46 PM Interpretation: Performing Lab:[address] [phone] Notes/Report: Triglycerides 66 <150 mg/dL Desirable Triglyceride: less than 150 mg/dL Borderline High Triglyceride 150-199 mg/dL High Triglyceride: 200-499 mg/dL Very High Triglyceride: greater than or equal to 5OO mg/dL Cholesterol 169 <200 mg/dL Desirable Cholesterol: less than 200 mg/dL Borderline High Cholesterol: 200-239 mg/dL High Cholesterol: greater than 239 mg/dL LDL Cholesterol Calculated 63 <100 mg/dL Desirable LDL: less than 100 mg/dL Near Optimal/Above Optimal LDL: 110-129 mg/dL Borderline High LDL: 130-159 mg/dL High LDL: 160-189 mg/dL Very High LDL: greater than or equal to 190 mg/dL HDL Cholesterol 93 >40 mg/dL Desirable HDL: greater than 40 mg/dL Note: This HDL assay may give artificially low results in patients with liver disease. PSA,Total (Free>4and<10) Reviewed date:08/12/2025 12:41:45 PM Interpretation: Performing Lab:[address] [phone] Notes/Report: PSA,Total (Free>4and<10) < 0.10 0.00-4.00 ng/mL [...] Chemiluminescent Microparticle Immunoassay (CMIA) Microalbumin, Random Reviewed date:08/12/2025 12:41:55 PM Interpretation: Performing Lab:[address] [phone] Notes/Report: Creatinine Urine 168.00 Microalbumin Urine 36.0 Microalbum/Creatinine Ratio Ur 21.4 <30 ug/mg cr Albumin/Creatinine Ratio Reference Ranges: Normal: < 30 ug/mg creatinine Microalbuminuria: 30 - 300 ug/mg creatinine Clinical Albuminuria: > 300 ug/mg creatinine Hemoglobin A1c Reviewed date:08/12/2025 12:41:37 PM Interpretation: Performing Lab:[address] [phone] Notes/Report: Hemoglobin A1c % 5.0 <6.0 % [...] average glucose, using the formula of the [id number] Average Glucose study (ADAG), Diabetes Care, Vol.31,#8, Apr. 2007 UA ClnCatch+Micro w/rflx Cul t Reviewed date:08/12/2025 12:43:11 PM Interpretation: Performing Lab:[facility], [address] [place] [phone] Notes/Report: Urine, Clean Catch Color Urine Yellow Appearance Urine Clear PH 6.0 5.0-9.0 Glucose Urine UA Negative Negative mg/dL Urine Blood Negative Negative Specific [place] - Urine 1.020 1.005-1.025 Urine Protein Negative Neg-Trace mg/dL Urine Ketones Negative Negative mg/dL Nitrite Urine Negative Negative Leukocyte Esterase Urine Negative Negative RBC Urine 0-2 0-2 /HPF WBC Urine 0-5 0-5 /HPF Squamous Epithelial Cell Urine 0-2 0-2 /HPF Bacteria Urine None Seen None Seen Hyaline Casts Urine 3-5 0-2 /LPF REASON FOR VISIT FASTING LABS Encounters Encounter Location Date Provider Diagnosis Jonas Evans MD [address] [place] [phone] 08/12/2025 Jonas Evans Essential hypertensi on I10 ; Prediabetes R73.09 ; Pure hypercholesterolemia E78.00 and Rising PSA level R97.20 Assessments Encounter Date Diagnosis (ICD Code) Assessment Notes Treatment Notes Treatment Clinical Notes Section Notes 08/12/2025 Essential hypertensi on (ICD-10 - I10) 08/12/2025 Prediabetes (ICD-10 - R73.09) 08/12/2025 Pure hypercholesterolemia (ICD-10 - E78.00) 08/12/2025 Rising PSA level ( D-10 - R97.20) Plan Of Treatment Pending Test Test Name Order Date Comprehensive [place]. Panel Fast Next Appt Details Provider Name:Jonas arias, 11/18/2025 01:45:00 PM, [address] [place] [address], [address], [phone], Provider Name:Jonas arias, 02/09/2026 07:30:00 AM, [address] [place] [address], [address], [phone], Provider Name:Jonas arias, 02/16/2026 09:00:00 AM, [address] [place] [address], [phone], Provider Name:Jonas [email or web address], 08/15/2026 07:15:00 AM, [address] [place] [address], [address], [phone], Provider Name:Jonas arias, 08/22/2026 10:30:00 AM, [address] [place] [address], [phone], Progress Notes * Reji TUCKERDOB: 6 (70 yo M)Acc No.[id number]:08/12/2025 Progress Note Patient: Reji QUINTERO Provider: Nohemy Evans MD :1955 A ge:70 Y S ex:Male Date:08/12/2025 Address:[address] [place], [place] [id number] Subjective: * Chief Complaints: * 1 . FASTING LABS. * Medical History: Objective: * Vitals: Assessment: * Assessment: 1. E ssential hypertension - I10 (Primary) 2 . P rediabetes - R73.09 ? 3 . P ure hypercholesterolemia - E78.00 4 . R ising PSA level - R97.20 Plan: * Treatment: 2. P rediabetes L AB: Comprehensive [place]. Panel Fast L AB: Complete Blood Count Auto Diff (Collection Date & Time - 08/12/2025 07:00 AM) L AB: Lipid Panel (Collection Date & Time - 08/12/2025 07:00 AM) L AB: PSA,Total (Free>4and<10) (Collection Date & Time - 08/12/2025 07:00 AM) L AB: Microalbumin, Random (Collection Date & Time - 08/12/2025 07:00 AM) L AB: Hemoglobin A1c (Collection Date & Time - 08/12/2025 07:00 AM) L AB: UA ClnCatch+Micro w/rflx Cult (Collection Date & Time - 08/12/2025 07:00 AM) 3. P ure hypercholesterolemia L AB: Comprehensive [place]. Panel Fast L AB: Complete Blood Count Auto Diff (Collection Date & Time - 08/12/2025 07:00 AM) L AB: Lipid Panel (Collection Date & Time - 08/12/2025 07:00 AM) L AB: PSA,Total (Free>4and<10) (Collection Date & Time - 08/12/2025 07:00 AM) L AB: Microalbumin, Random (Collection Date & Time - 08/12/2025 07:00 AM) L AB: Hemoglobin A1c (Collection Date & Time - 08/12/2025 07:00 AM) L AB: UA ClnCatch+Micro w/rflx Cult (Collection Date & Time - 08/12/2025 07:00 AM) 4. R ising PSA level L AB: Comprehensive [place]. Panel Fast L AB: Complete Blood Count Auto Diff (Collection Date & Time - 08/12/2025 07:00 AM) L AB: Lipid Panel (Collection Date & Time - 08/12/2025 07:00 AM) L AB: PSA,Total (Free>4and<10) (Collection Date & Time - 08/12/2025 07:00 AM) L AB: Microalbumin, Random (Collection Date & Time - 08/12/2025 07:00 AM) L AB: Hemoglobin A1c (Collection Date & Time - 08/12/2025 07:00 AM) L AB: UA ClnCatch+Micro w/rflx Cult (Collection Date & Time - 08/12/2025 07:00 AM) * Procedure Codes: 3 6415 VENIPUNCT, ROUTINE* * * The named appointment provid er may or may not be the originator of this progress note, and it is not deemed complete until electronically signed by the appointment provider. Sign off status: Pending * Provider: Nohemy Evans MD Date: 1 10/12/2024 Generated for Nusrat baez/Christine/Hemalitting on: 11/13/2024 08:09 AM EST
--- OUTSIDE RECORDS SUMMARY | 2025-08-18 03:00 | XMS_ITS ---
Author Organization Jonas Evans MD Address [address] [place] [phone] Care Team Providers Care Lime Trimmer Name Role Phone Jonas Evans Primary Care Provider Allergies No Known Allergies REASON FOR VISIT ANNUAL EXAM Medications Medication SIG (Take, Route, Frequency, Duration) Notes Start Date End Date Status Atorvastatin Calcium 40 MG TAKE 1 TABLET BY MOUTH EVERY DAY Active hydroCHLOROthiazide 25 MG 1 tablet in morning Orally Once a day 06/02/2025 Active Social History Tobacco Use: Social History Observation [...] Never (0 point) Points 3 Interpretation Negative Vital Signs Blood pressure systolic 178 mm Hg 08/18/20 25 Blood pressure diastolic 94 mm Hg 025 Height 69.5 in 08/18/2025 Weight 197 lbs 08/18/2025 BMI 28.67 kg/m2 08/18/2025 weight is up 14 poiunds sinc e 05-23-25 Encounters Encounter Location Date Provider Diagnosis Jonas Evans MD [address] [place], [place] [phone] 08/18/2025 Jonas Evans Adult general medica l exam Z00.00 ; Essential hypertension I10 ; Pure hypercholesterolemia E78.00 ; Lymphocytosis D72.820 ; History of prostate cancer Z85.46 and Family history of aneurysm Z82.49 Assessments Encounter Date Diagnosis (ICD Code) Assessment Notes Treatment Notes Treatment Clinical Notes Section Notes 08/18/2025 Adult general medica l exam (ICD-10 - Z00.00) labs reviewed and discussed with patient, [place] [facility] [place] 08/18/2025 Essential hypertensi on (ICD-10 - I10) running a little high but chacks at home and is doing well, will continue current regiment and will continue to monitor 08/18/2025 Pure hypercholesterolemia (ICD-10 - E78.00) well controlled, will continue current regiment 08/18/2025 Lymphocytosis (ICD-1 0 - D72.820) stable, will continue to monitor 08/18/2025 History of prostate cancer (ICD-10 - Z85.46) no recurrence 08/18/2025 Family history of aneurysm (ICD-10 - Z82.49) MRA order faxed to [facility] , awaiting diagnostic testing Plan Of Treatment Medication Medication Name Sig Start Date Stop Date Notes Atorvastatin Calcium 40 MG TAKE 1 TABLET BY MOUTH EVERY DAY hydroCHLOROthiazide 25 MG 1 tablet in th e morning Orally Once a day 06/02/2025 Treatment Notes Assessment Notes Adult general medical exam labs reviewed and discussed with patient, [place] [facility] [place] Essential hypertension running a little high but chacks at home and is doing well, will continue current regiment and will continue to monitor Pure hypercholesterolemia well controlle d, will continue current regiment Lymphocytosis stable, will continu e to monitor History of prostate cancer no recurrence Family history of aneurysm MRA order fax ed to [facility] , awaiting diagnostic testing Pending Test Test Name Order Date MRA BRAIN NO CONTRAST 08/18/2025 Next Appt Details Follow Up: 3 Months, Reason: Provider Name:Jonas arias, 11/18/2025 01:45:00 PM, [address], [address], [place], [place], [phone], Provider Name:Jonas Ramsay ier, 02/09/2026 07:30:00 AM, [address] [facility], [address], [place], [place], [phone], Provider Name:Jonas Ramsay ier, 02/16/2026 09:00:00 AM, [address] [facility], [address], [place], [phone], Provider Name:Jonas Ramsay ier, 08/15/2026 07:15:00 AM, [address] [facility], Suite [facility], [place], [place], [phone], Provider Name:Jonas Ramsay ier, 08/22/2026 10:30:00 AM, [address] [place] [address], Suite [facility], [place], [phone], Progress Notes * Reji TUCKERDOB: (70 yo M)Acc No.[id number]:08/18/2025 Progress Notes Patient: Reji QUINTERO J Provider: Nohemy Evans MD :1955 A ge:70 Y S ex:Male Date:08/18/2025 Address:[address] [place] [id number] Subjective: * Chief Complaints: * A NNUAL EXAM * HPI: D epression Screening: PHQ-9 L [...] newspaper or watching television N ot at all, M oving or speaking so slowly that other people could have noticed; or the opposite, being so fidgety or restless that you have been moving around a lot more than usual N ot at all, T houghts that you would be better off or of hurting yourself in some way N ot at all, T otal Score 0 . I nterpretation and Intervention D epression Screening Findings N egative, F ollow-Up for Depression : review of PHQ-9 found negative result, no follow-up needed. C ommunication Needs: Communication Needs D oes the patient have a hearing impairment N o, D oes the patient have a vision impairment? Y es, I f yes, what is the vision impairment? G lasses, D oes the patient have a cognition impairment? N o. F all Risk: History H ave you had any falls with injury in the past year? N o, H ave you had two or more falls in the past year? N o. S VENU Questions: SDOH Questions I n the past year have you been worried about losing housing? N o, I n the past year have you or any family members you live with been unable to get any of the following when it was really needed? Check all that apply: N one. S ymptom(s): patient is a 70 yo male here for annual visit with revie of recent labs and follow up of chronic issues. * ROS: G eneral/Constitutional: Change in appetite d enies. C hills d enies. F ever d enies. O phthalmologic: Blurred vision d enies. D ischarge d enies. P ain d enies. E NT: Decreased hearing d enies. S ore throat d enies.?Swollen glands d enies. E ndocrine: Cold intolerance [...] F requent urination d enies. M usculoskeletal: Painful joints d enies. W eakness d enies. ? S kin: Dry skin d enies. I [...] frequency:, 1-2 cups per day. Children: yes. Community involvements: no. Exercise: yes, walks and 20 trips up and down the stairs carrying 20-40 pounds QD. Housing: owning. Living with: spouse. Marital status: . Occupation: works full-time. Pets: cats. * Medications: T akingAtorvastatin Calcium 40 MG Tablet TAKE 1 TABLET BY MOUTH EVERY DAY hydroCHLOROthiazide 25 MG Tablet 1 tablet in the morning Orally Once a day Medication List reviewed and reconciled with the patientTaking Atorvastatin Calcium 40 MG Tablet TAKE 1 TABLET BY MOUTH EVERY DAY Taking hydroCHLOROthiazide 25 MG Tablet 1 tablet in the morning Orally Once a day Medication List reviewed and reconciled with the patient * Allergies: N .K.D.A.yes[Allergies Verified] Objective: * Vitals: H t: 69.5, Wt: 197, BMI:28.67, BP:178/94, Repeat BP:155/70, Wt-k.36. weight is up 14 poiunds since 05-23-25. * P ast Orders: L ab:Complete Blood Count Auto Diff (Order Date - 08/12/2025) (Collection Date & Time - 08/12/2025 07:00 AM) Value Reference Range White Blood Count 5.2 4.8-10.8 - X10*3/uL Red Blood Count 4.60 4.60-5.80 - X10*6/uL Hemoglobin 14.3 14.0-18.0 - g/dl Hematocrit 43.9 42.0-52.0 - % Mean Corpuscular Volume 95.4 80.0-98.0 - fL Mean Corpuscular Hemoglobin 31.1 27.0-33.0 - pg Mean Corpuscular HGB Conc 32.6 31.0-36.0 - g/ dl Red Cell Distribution Width 13.2 11.0-16.0 - % Platelet Count 217 160-400 - X10*3/uL Mean Platelet Volume 11.7 9.4-12.4 - fL Neutrophils Percent Auto 38.0 L 45-73 - % Imm Gran Pct Auto 0.2 0.0-0.4 - % Lymphocytes Percent Auto 45.4 H 20-40 - % Monocytes Percent Auto 13.0 H 2-11 - % Eosinophils Percent Auto 2.3 0-4 - % Basophils Percent Auto 1.1 0-2 - % NRBC Pct Auto 0.0 0.0-0.2 - /100WBC Neutrophils Absolute Auto 2.0 2.0-8.3 - x10* 3/uL Imm Gran Abs Auto 0.01 0.00-0.03 - X10*3/uL Lymphocytes Absolute Auto 2.4 1.2-4.9 - X10* 3/uL Monocytes Absolute Auto 0.7 0.1-1.2 - X10*3/ uL Eosinophils Absolute Auto 0.1 0.0-0.4 - X10* 3/uL Basophils Absolute Auto 0.1 0.0-0.2 - X10*3/ uL NRBC Abs Auto 0.000 0.0-0.012 - X10*3/uL L ab:Comprehensive Met. Panel (Order Date - 08/12/2025) (Collection Date & Time - 08/12/2025 07:00 AM) Value Reference Range Sodium 144 135-145 - mmol/L Bilirubin Total 0.4 0.0-1.0 - mg/dL Aspartate Amino Transferase 24 5-37 - U/L Alanine Aminotransferase 20 0-40 - U/L Total Protein 6.5 6.5-8.0 - g/dL Albumin Level 3.7 3.5-5.0 - g/dL Alkaline Phosphatase 69 39-117 - U/L Potassium 4.1 3.3-5.1 - mmol/L Chloride 110 H 96-108 - mmol/L Carbon Dioxide 26 22-29 - mmol/L Anion Gap 12 12-20 - Blood Urea Nitrogen 13 9-16 - mg/dL Creatinine 0.90 0.5-1.4 - mg/dL Estimated Glomerular Filt Rate > 60 - Glucose Random 87 60-115 - mg/dL Calcium 8.8 8.4-10.2 - mg/dL L ab:Lipid Panel (Order Date - 08/12/2025) (Collection Date & Time - 08/12/2025 07:00 AM) Value Reference Range Triglycerides 66 <150 - mg/dL Cholesterol 169 <200 - mg/dL LDL Cholesterol Calculated 63 <100 - mg/dL HDL Cholesterol 93 >40 - mg/dL L ab:PSA,Total (Free>4and<10) (Order Date - 08/12/2025) (Collection Date & Time - 08/12/2025 07:00 AM) Value Reference Range PSA,Total (Free>4and<10) < 0.10 0.00-4.00 - ng/ mL L ab:Microalbumin, Random (Order Date - 08/12/2025) (Collection Date & Time - 08/12/2025 07:00 AM) Value Reference Range Creatinine Urine 168.00 - mg/dL Microalbumin Urine 36.0 - mg/L Microalbum Creatinine Ratio Ur 21.4 <30 - ug/ mg cr L ab:Hemoglobin A1c (Order Date - 08/12/2025) (Collection Date & Time - 08/12/2025 07:00 AM) Value Reference Range Hemoglobin A1c % 5.0 <6.0 - % Estimated Average Glucose 97 - mg/dL L ab:UA ClnCatch+Micro w/rflx Cult (Order Date - 08/12/2025) (Collection Date & Time - 08/12/2025 07:00 AM) Value Reference Range Color Urine Yellow - Appearance Urine Clear - PH 6.0 5.0-9.0 - Glucose Urine UA Negative Negative - mg/dL Urine Blood Negative Negative - Specific [place] - Urine 1.020 1.005-1.025 - Urine Protein Negative Neg-Trace - mg/dL Urine Ketones Negative Negative - mg/dL Nitrite Urine Negative Negative - Leukocyte Esterase Urine Negative Negative - RBC Urine 0-2 0-2 - /HPF WBC Urine 0-5 0-5 - /HPF Squamous Epithelial Cell Urine 0-2 0-2 - /HP F Bacteria Urine None Seen None Seen - Hyaline Casts Urine 3-5 0-2 - /LPF * Examination: G eneral Examination: GENERAL APPEARANCE: [...] tone, no external hemorrhoids, no masses palpable, prostate normal, stool guaiac negative. MALE GENITOURINARY: n ot examined. EXTREMITIES: n o clubbing, cyanosis, or edema. NEUROLOGIC: n onfocal, motor strength normal upper and lower extremities, sensory exam intact. Assessment: * Assessment: 1. A dult general medical exam - Z00.00 (Primary) 2 . E ssential hypertension - I10 3 . P ure hypercholesterolemia - E78.00 4 . L ymphocytosis - D72.820 5 . H istory of prostate cancer - Z85.46 6 .?Family history of aneurysm - Z82.49 Plan: * Treatment: 2. E ssential hypertension Continue hydroCHLOROthiazide Tablet, 25 MG, 1 tablet in the morning, Orally, Once a day. Notes: running a little high but chacks at home and is doing well, will continue current regiment and will continue to monitor 3. P ure hypercholesterolemia Continue Atorvastatin Calcium Tablet, 40 MG, TAKE 1 TABLET BY MOUTH EVERY DAY. Notes: well controlled, will continue current regiment 4. L ymphocytosis Notes: stable, will continue to monitor 5. H istory of prostate cancer Notes: no recurrence 6. F amily history of aneurysm I maging: MRA BRAIN NO CONTRAST Notes: MRA order faxed to [facility] , awaiting diagnostic testing * Procedure Codes: * Preventive Medicine: Counseling: C are goal follow-up plan: C titanseling for abnormal BMI provided?Yes, Ramona brown Normal BMI Follow-up G marking encouragement to exercise. * Follow Up: 3 Months * * Sign off status: Completed true * Provider: Nohemy Evans MD Date: 10/18/2024 Generated for Nusrat baez/Christine/Vikasmitting on: 11/13/2024 08:09 AM EST History and Physical Notes * HPI (History of Present Illness) Category Sub-Category Detail Notes Category Not es Symptom(s) patient is a 70 yo male here for annual visit with revie of recent labs and follow up of chronic issues Depression Screening PHQ-9 Little inte rest or pleasure in doing things: Not at all Feeling down, depressed, or hopeless: No t [...] newspaper or watching television: Not at all Moving or speaking so slowly that other people could have noticed; or the opposite, being so fidgety or restless that you have been moving around a lot more than usual: Not at all Thoughts that you would be b janiya off or of hurting yourself in some way: Not at all Total Score: 0 Interpretation and Intervention Depression Abdoul lockett Findings: [...] the patient have a vision impairmen t?: Yes If yes, what is the vision impairment?: Glasses Does the patient have a cognition impair [...] clubbing, cyanosi s, or edema MALE GENITOURINARY: not examined RECTAL EXAM: normal tone, no exte rnal hemorrhoids, no masses palpable, prostate normal, stool guaiac negative ORAL CAVITY: mucosa moist
--- OUTSIDE RECORDS SUMMARY | 2025-09-12 08:09 | XMS_ITS | Patient Health Record ---
Author Organization [facility] Address [address] [place] [phone] Care Team Providers Care Coffee Shop Attendant Name Role Phone Jonas Evans MD Primary Care Provider Jamie Pittman Unavailable [phone] Allergies No Known Allergies Reason For Referral No Information Medications Medication SIG (Take, Route, Frequency, Duration) Notes Start Date End Date Status Atorvastatin Calcium Active Valsartan-hydroCHLOROthiazi de Active Immunizations Vaccine Route Administration Date Status Comme nts Influenza Unknown 02/20/2022 Refused Influenza Unknown 06/23/2024 Refused Social History Social History Additional Details Category Social Info Options Details Miscellaneous: Marital status: 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 alcohol Nonsmoker; occ. alcohol Nonsmoker; occ. alcohol Problems Problem Type SNOMED Code ICD Code Onset Dates Problem Status W/U Status Risk Notes Problem Screening for malignant neoplasm of colon (280381870) Encounter for screening for malignant neoplasm of colon (Z12.11) Active confirmed Problem History of adenomatous polyp of colon (979623677) History of adenomatous polyp of colon (Z86.010) Active confirmed Problem Rectal polyp (86266383) Rectal polyp (K62.1) Active confirmed Problem Screening for malignant neoplasm of rectum (191221371) Encounter for screening for malignant neoplasm of rectum (Z12.12) Active confirmed Problem Preprocedural examination (741306133313150) Preprocedural examination (Z01.818) Active confirmed Problem Diverticulosis of colon (610325396) Diverticulosis of colon (K57.30) Active confirmed Problem Imaging of abdomen abnormal (972073499) Abnormal MRI of the abdomen (R93.5) Active confirmed Encounters Encounter Location Date Provider Diagnosis [facility] [place] [facility] [address] [place] [phone] 11/29/2024 Jamie Sher Abnormal abdominal C T scan R93.5 ; Personal history of adenomatous and serrated colon polyps Z86.0101 ; Diverticulosis of colon K57.30 and Internal hemorrhoids K64.8 [facility] [address] [place] [address] 10/01/2024 Jamie Sher Assessments Encounter Date Diagnosis [...] Insured Coverage Start Date Coverage End Date [facility] [place] [employer] [place] [address] [place] [address] [id number] BARRY FRANCO Self - patient is the insured Medical (General) History Medical History History ICD Code Denies [place],DM,CVA,Lung disease,renal dise ase Hypertension Hyperlipidemia Screening colonoscopy 11/2015 with 2 tubu lar adenomas removed Screening colonoscopy in February of 2022 wi th a single tubular adenoma removed Prostate cancer in February of 2024 with alvin mixon as below Surgical History Surgery Date(Month/Year) Prostatectomy for cancer in February of 2024 at [facility]
--- OUTSIDE RECORDS SUMMARY | 2025-09-12 08:09 | XMS_ITS | Encounter Summary ---
Author Organization [facility] Address [address] [place] [address] Drive [address] [place] [address] Phone Care Team Providers Care Steel Plate Printer Name Role Phone Jonas Evans MD Primary Care Provider Imelda Alvarenga MD, MPH Unavailable [phone] José Mckoy MD Unavailable [phone] Mak Bautista MD Unavailable [phone] Encounter Details Date Type Department Care Team (Late st Contact Info) Description 02/10/2024 Procedure Pass BWF Periop 1st floor [address] [place], [place] [phone] Social History Tobacco Use Types Packs/Day Years [...] on filedocumented in this encounter Care Teams Steel Plate Printer Relationship Specialty Start Date End Date Jonas Evans MD [address] [place] [address] [place] [address] PCP - General Internal Medicine 12/25/23 Imelda Alvarenga MD, MPH [address] [place] [address], [place] [address] [place] [address] [email or web address] 01/15/24 José Mckoy MD [address] [place] [address] Urology 01/15/24 Mak Bautista MD [address] [place] [address] [email or web address] 01/15/24 documented as of this encounter Additional Source Comments The information contained in this document represents components of the legal health record. It is not the complete legal health record.[facility]
--- OUTSIDE RECORDS SUMMARY | 2025-09-12 08:09 | XMS_ITS | Clinical Summary ---
Author Organization [facility] Address [address] [place] [address] [place] [address] Phone Care Team Providers Care Group Burner Machine Name Role Phone Jonas Evans MD Primary Care Provider Imelda Alvarenga MD, MPH Unavailable [phone] José Mckoy MD Unavailable [phone] Mak Bautista MD Unavailable [phone] Allergies No known active allergies Medications atorvastatin [...] SODIUM 137 136 - 145 mmol/L [facility] CHLORIDE 104 98 - 107 mmol/L [facility] POTASSIUM 4.1 3.4 - 5.0 mmol/L [facility] Comment:HEMOLYSIS_INDEX_OF_2 6,INTERPRET_WITH_CAUTION CO2 24 22 - 31 mmol/L [facility] BUN 16 6 - 23 mg/dL [facility] CREATININE 1.08 0.50 - 1.20 mg/dL [facility] GLUCOSE 166(H) 70 - 115 mg/dL [facility] CALCIUM 8.2(L) 8.6 - 10.7 mg/dL [facility] EGFR 75 >60 mL/min/1.7 3m2 [facility] Comment:Estimated glomerular filtration rate calculated using the CKD-EPI refit equation. ANION GAP 10 3 - 15 mmol/L [facility] Blood 02/10/2024 11:5 8 AM EDT 02/10/2024 12:03 PM EDT us José Mckoy MD LAB BLOOD BKR ORDERABLES Dayan snell Result [facility] [address] [place] [address] from Last 3 Months or Most Recently Relevant to Health Maintenance Insurance [facility] Care Teams Group Burner Machine Relationship Specialty Start Date End Date Jonas Evans MD [address] [place] [address] [place] [address] PCP - General Internal Medicine 12/25/23 Imelda Alvarenga MD, MPH [address] [place] [address], [facility] [address] [address] [email or web address] Oncology 01/15/24 José Mckoy MD [address] [place] [address] Urology 01/15/24 Mak Bautista MD [address] [place] [address] [email or web address] Medical Oncology 01/15/24 Additional Source Comments The information contained in this document represents components of the legal health record. It is not the complete legal health record.[facility]
--- OUTSIDE RECORDS SUMMARY | 2025-09-12 08:10 | XMS_ITS | Data Portability ---
Author Organization MURAL[facility] - TAZ HUTCHISON, autoContract - [facility] Address [address], [facility] [address] [place] [address] Assessment Encounter Date Assessment Date Assessment LastModified by Organization Details LastModified Time 05/19/2025 05/19/2025 DATE OF SURGERY: 05/27/25 ADMITTING DIAGNOSIS: Osteoarthritis LEFT hip REASON FOR ADMISSION: Left total hip arthroplasty SURGEON: Dr. Medrano HISTORY: The patient presents today at the request of their surgeon for a preoperative history and physical examination, with the goal of risk assessment and medical optimization prior to surgery. This is a 69-year-old male who complains of hip pain related to osteoarthritis. The patient has failed conservative measures, their joint pain is having a significant impact on their daily activities and joint replacement is now planned. PAST MEDICAL HISTORY: Osteoarthritis of Left Hip Junctional Rhythm with RBBB on EKG HTN HLD Prostate Cancer in 2023 - followed by Leonor Fransisca Mild renal insufficiency on preop labs - GFR 56 Patient has no dental complaints but is planning on getting dentures after surgery. Had 20 pound weight loss x 3 months, appetite is down Shortness of breath, easily fatigued, going up a set of stairs, lifting and carrying things when working - patient states he needs to sit down to catch his breath. Sometimes light headed and dizzy. This is new in the past 3 months. PAST SURGICAL HISTORY: Prostatectomy 2023 Colonoscopy Patient denies previous surgical or anesthetic complications, Difficulties with intubation or Family history of anesthesia problems. 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 REVIEW OF SYSTEMS Constitutional: + weight change (loss), No fever, No chills, No night sweats HEENT / DENTAL: no changes in vision, hearing: no changes, no dental concerns - pending dental work Cardiovascular: No chest pain, No palpitations, No dyspnea on exertion, No peripheral edema, Respiratory: yes shortness of breath, No cough, No sputum production. Gastrointestinal: No nausea, No vomiting, No Heartburn, No dysphagia, No diarrhea, No abdominal pain, No Black stools or rectal bleeding Genitourinary: No urinary changes Neurologic: No headache, +dizziness, - vertigo Musculoskeletal: No back pain, No Neck pain, + joint pain hip Psychiatric: No mood complaints Skin: No rash or open wounds PHYSICAL EXAM GENERAL: No acute distress, alert. SKIN: Warm, no rashes. HEENT: Supple, no masses. Conjunctiva clear, PERRL. No nasal discharge, hearing intact. LUNGS: Non l abored respirations. Lungs CTA b/L CARDIOVASCULAR: Regular rhythm, no edema. No R/G/M MUSCULOSKELETAL: Antalgic Gait, hip pain with ROM NEUROLOGIC: CN II X II intact. DIAGNOSTIC STUDIES: Orthopedic X-ray: End stage hip osteoarthritis EKG 05/09/25 Unusual P axis and short DE, probable junctional rhythm with undetermined rhythm irregularity Right bundle branch block Abnormal ECG No previous ECGs available Confirmed by SHY CHATTERJEE ([id number]) on 05/09/2025 LABORATORY DATA: 05/09/25 CBC: WBC 5 H&H 11&36 Plt 299 BMP: Na 141 K 3.9 BUN/Cr 17/1.08 GFR 56 A1C: 5.6 Coags: PTT27 PT 11 INR 1.1 ASSESSMENT AND PLAN: The patient has end stage osteoarthritis of the left hip and is now scheduled for left hip replacement surgery. Specific Anesthesia Concerns: NONE The patient is an ASA Class: II Surgical Procedural Risk: Intermediate CARDIAC EVALUATION: The patient is having dyspnea on exertion with some dizziness over the past few months, requiring him to sit down. In addition to this he has had weight loss and blood pressure is low today. I have asked him to hold his BP rx and he has a cuff at home that he can monitor his BP. I spoke with the patients PCP, Dr. Evans, he will follow up with the patient regarding his blood pressure. I would like have the patient undergo a nuclear-treadmill stress test (modified kwesi protocol) to evaluate his other symptoms. He will need imaging for his stress test due to his baseline abnormal EKG. This may mean that his surgery would need to be delayed. Hypertension: Patient hypotensive today with autocuff and manual cuff. - He was instructed to hold BP rx and monitor with home cuff. PULMONARY EVALUATION: LowRisk - ARISCAT Score: 3 points - The patient has the following intrinsic pulmonary disease: None - Post Operative Recommendations: Early mobilization, Incentive spirometry, Pulmonary toilet, Pain control with Epidurals or nerve blocks if possible. - RASMES risk STOP BANG Score 2 : Low Risk RAMSES HEMATOLOGIC EVALUATION - Surgical Bleeding Risk: Elevated: - Recommend Intra-operative IV TXA - Patient Bleeding Risk: Average VTE Prophylaxis/Thromb otic risk: - Joint Replacement Surgery is elevated thrombotic risk - VTE Prophylaxis Recommendations: 4 weeks of post operative - Chemical prophylaxis with: Aspirin ENDOCRINE EVALUATION: No Concerns RENAL RISK: Mildly reduced GFR on preop labs. Encouraged good po hydration leading up to surgery, avoid nephrotoxic medications, Adjust all renally-excreted drugs based on eGFR, Resume Medications Carefully, such as ACEi/ARBs and diuretics only when hemodynamically stable, Use balanced crystalloids such as LR, Maintain adequate renal perfusion pressure, Avoid prolonged hypotension (MAP <65 mmHg), Monitor urine output as far as possible, Monitor renal function and electrolytes HEPATIC RISK: Low MEDICATION RECOMMENDATION Summary: Medications to be taken the morning of surgery: NONE Special Medication Recommendations: SUMMARY Areli/Post Op Medication Recommendations: IV TXA Intraoperatively ASA DVT prophylaxis for 4 weeks post operatively Pantoprazole for GI protection while on A/C Colace for constipation prophylaxis NO NSAIDs recommended. Narcotics: Tramadol, Oxycodone DISCHARGE DISPOSITION: Home with services POST OP PRESCRIPTIONS TO BE PROVIDED BY SURGICAL TEAM: Tramadol Oxycodone Colace ASA Pantoprazole Zofran POST OP CONTACT: Yu [phone] Thank you for referring your patient to [facility] for preoperative risk assessment. Please do not hesitate to reach out should you have any questions or if we can be of further service to you or your patients. Warm regards, Lory Valdez-ANGELY Boyd Total time spent: 65 minutes today reviewing the chart/medical records, speaking with the patient, speaking directly with his PCP and the surgical team , formulating and discussing the treatment plan, and documenting the findings and encounter. [email or web address] Not available 05/19/2025 15:23:07 Plan of Treatment Reminders Order Date Submit Date Provider Last Modified By Organization Details Last Modified Time Details Appointments None recorded. Lab None recorded. Referral None recorded. Procedures electrocard iogram, routine ECG, 12 leads min; interpretat ion and report (PROC) 2024 [id number] [email or web address] Not available 12:53:35 Surgeries None recorded. Imaging None recorded. Medication Orders None recorded. Patient TargetsNo targets recorded. Patient InstructionsNo instructions recorded. Reason for Referral None Reported. Medical Equipment None Reported. Medications Name Sig Start Date Stop Date Status Note LastModified by Organization Details LastModified Time atorvastatin 40 mg tablet TAKE 1 TABLET BY MOUTH EVERY DAY active Not Available Not Available No t Available sildenafil 100 mg tablet TAKE 1 TABLET (100 MG TOTAL) BY MOUTH DAILY NEEDED. DO NOT USE ON SAME DAY CIALIS. active Not Available Not Available No t Available tadalafil 20 mg tablet TAKE 1/2 (10 MG) TABLET TWICE WEEKLY POST PROSTATE CTOMY. active Not Available Not Available No t Available valsartan 320 mg-hydrochloro thiazide 25 mg tablet TAKE 1 TABLET BY MOUTH EVERY DAY active Not Available Not Available No t Available Vitals Date Recorded Systolic And Diastolic Provider Name and Address Organization Details Last Updated DateTime 05/19/2025 80/58 mm[Hg] LORA AYOUB [address], [place], [address], MURALI MADRIDCLIFFE 05/19/2025 15:00:35 Date Recorded Heart rate Oxygen saturation Body temperature Body weight Body mass index (BMI) Body height Systolic And Diastolic Provider Name and Address Organization Details Last Updated DateTime 5 76 /min 94 % 97.1 [degF] 30202.4 g 27 kg/m2 175.26 cm 88/56 mm[Hg] Dipika MADRIDCLIFFE 13:15:39 Social History None recorded. Functional Status None recorded. Mental Status None recorded. Family History Nothing Reported. Medical History No medical history recorded. Past Encounters Encounter ID Performer Location Encounter Start Date Encounter Closed Date Diagnosis/Indication Diagnosis SNOMED-CT Code Diagnosis ICD10 Code Diagnosis IMO Codes Diagnosis Note [id number] Issac Monge MD [facility] [address] [place] [address] 05/19/2025 12:53:40 05/19/2025 14:10:59 Preprocedural examination done 8577265925 31556 Z01.818 025654 Osteoarthr itis of left hip joint 8286749979 19141 M16.12 8207643 Dyspnea on exertion 6084 5006 R06.09 627351 Dizzy spells 376883806 R 42 532807 Essential hypertension 73778388 I10 96774 Electrocar diogram abnormal 220527369 R94.31 411576 Health Concerns Section Related Observation LastModified by Organization Detai ls LastModified Time None Recorded Concern Status LastModified by Organization Details LastModified Time None Recorded Advance Directives Directive None Recorded Payers Insurance Date Sequence Insurance Name Policy Number Policy Sen Covered Member ID Sen Member ID Guarantor Name 05/03/2025 1 [facility] ([facility]) [id number] Reji Tucker [id number] Reji Tucker 06/01/2025 1 [facility] (O) [id number] [id number] Reji Capellan Notes Date Note Type Note Provider Name and Address Organization Details Recorded Time 05/19/2025 text/html Preop HPIReporte d by Patient Patient presents today for pre-operative evaluation. LORY VALDEZ-LORA BOYD [address], [place], [address], MURALI - TAZ BECK 05/19/2025 15:29:32
--- OUTSIDE RECORDS SUMMARY | 2025-09-12 08:11 | XMS_ITS | Patient Health Record ---
Author Organization Jonas Evans MD Address [address] [place], [place] [id number] Care Team Providers Care Electroless Plater Name Role Phone Jonas Evans Primary Care Provider Allergies No Known Allergies Results Component Value Reference Range Notes Liver Panel Reviewed date:02/04/2025 12:28:40 PM Interpretation: Performing Lab:[facility], [address] [place] [phone] Notes/Report: Bilirubin Total 0.7 0.0-1.0 mg/dL Bilirubin Direct 0.3 0.0-0.5 mg/dL Aspartate Amino Transferase 22 5-37 U/L Alanine Aminotransferase 17 0-40 U/L Total Protein 6.7 6.5-8.0 g/dL Albumin Level 3.6 3.5-5.0 g/dL Alkaline Phosphatase 66 39-117 U/L Glucose Fasting Reviewed date:02/04/2025 12:28:14 PM Interpretation: Performing Lab:[facility], [address] [place] [phone] Notes/Report: Glucose Fasting 78 60-99 mg/dL Lipid Panel with Reflex Reviewed date:02/04/2025 12:27:58 PM Interpretation: Performing Lab:[address] [phone] Notes/Report: Triglycerides 67 <150 mg/dL Desirable Triglyceride: [...] Reviewed date:02/04/2025 12:28:06 PM Interpretation: Performing Lab:[facility], [address] [place] [phone] Notes/Report: Hemoglobin A1c % 5.0 <6.0 % [...] average glucose, using the formula of the F8R-Wpqkpho Average Glucose study (ADAG), Diabetes Care, Vol.31,#8, Apr. 2007 Complete Blood Count Auto Di ff Reviewed date:08/12/2025 12:42:38 PM Interpretation: Performing Lab:[facility], [address] [place] [phone] Notes/Report: White Blood Count 5.2 4.8-10.8 X10*3/uL [...] 0.0-0.2 /100WBC Neutrophils Absolute Auto 2.0 2.0-8.3 x10*3/uL Imm Gran Abs Auto 0.01 0.00-0.03 X10*3/uL Lymphocytes Absolute Auto 2.4 1.2-4.9 X10*3/uL Monocytes Absolute Auto 0.7 0.1-1.2 X10*3/uL Eosinophils Absolute Auto 0.1 0.0-0.4 X10*3/uL Basophils Absolute Auto 0.1 0.0-0.2 X10*3/uL NRBC Abs Auto 0.000 0.0-0.012 X10*3/uL Lipid Panel Reviewed date:08/12/2025 12:42:46 PM Interpretation: Performing Lab:[address] [phone] Notes/Report: Triglycerides 66 <150 mg/dL Desirable Triglyceride: [...] (Free>4and<10) Reviewed date:08/12/2025 12:41:45 PM Interpretation: Performing Lab:[address] [phone] Notes/Report: PSA,Total (Free>4and<10) < 0.10 0.00-4.00 ng/mL [...] Random Reviewed date:08/12/2025 12:41:55 PM Interpretation: Performing Lab:[address] [phone] Notes/Report: Creatinine Urine 168.00 Microalbumin Urine 36.0 Microalbum/Creatinine Ratio Ur 21.4 <30 ug/mg cr Albumin/Creatinine Ratio Reference Ranges: Normal: < 30 ug/mg creatinine Microalbuminuria: 30 - 300 ug/mg creatinine Clinical Albuminuria: > 300 ug/mg creatinine Hemoglobin A1c Reviewed date:08/12/2025 12:41:37 PM Interpretation: Performing Lab:[address] [phone] Notes/Report: Hemoglobin A1c % 5.0 <6.0 % [...] average glucose, using the formula of the V8Y-Sjovbdo Average Glucose study (ADAG), Diabetes Care, Vol.31,#8, Apr. 2007 UA ClnCatch+Micro w/rflx Cul t Reviewed date:08/12/2025 12:43:11 PM Interpretation: Performing Lab:[address] [phone] Notes/Report: Urine, Clean Catch Color Urine Yellow Appearance Urine Clear PH 6.0 5.0-9.0 Glucose Urine UA Negative Negative mg/dL Urine Blood Negative Negative Specific [place] - Urine 1.020 1.005-1.025 Urine Protein Negative Neg-Trace mg/dL Urine Ketones Negative Negative mg/dL Nitrite Urine Negative Negative Leukocyte Esterase Urine Negative Negative RBC Urine 0-2 0-2 /HPF WBC Urine 0-5 0-5 /HPF Squamous Epithelial Cell Urine 0-2 0-2 /HPF Bacteria Urine None Seen None Seen Hyaline Casts Urine 3-5 0-2 /LPF Hold Gold Reviewed date:02/04/2025 12:27:50 PM Interpretation: Performing Lab:[facility], [address] [place] [phone] Notes/Report: Hold Gold See Note Specimen held untested for 24 hours; Call to request Chemistry testing. NM fito perf SPECT rest & str Reviewed date:05/27/2025 08:40:22 AM Interpretation: Performing Lab: Notes/Report: [address] [place] [address] Nuclear Medicine Report Signed Patient: Reji Tucker MR#: [id number] : 1955 Acct:[id number] Age/Sex: 69 / M ADM Date: 05/24/25 Loc: [facility] Attending Dr: Jonas Evans MD Ordering Physician: Jonas Evans MD Date of Service: 05/24/25 Procedure(s): NM fito perf SPECT rest str Accession Number(s): [id number] cc: Jonas Evans MD Lexiscan Myocardial perfusion [...] Mao Nathan MD 05/26/2025 04:04 PM EDT Dictated By: Mao Nathan MD Signed By: <Electronically signed by Mao Nathan MD in OV> 05/26/25 1604 DD/ 1000 TD/TT: 05/25/25 0815 Foot Doctor: [place] [address] Nuclear Medicine Report Signed Patient: Gio Tucker MR#: [id number] : 1955 Acct:[id number] Age/Sex: 69 / M ADM Date: 05/24/25 Loc: [facility] Attending Dr: Jonas Evans MD Ordering Physician: Jonas Evans MD Date of Service: 05/24/25 Procedure(s): NM fito perf SPECT rest str Accession Number(s): [id number] cc: Jonas Evans MD Lexiscan Myocardial perfusion study Indication: Preoperative cardiac evaluation Technique: The patient was brou ght in for a Lexiscan perfusion study on 05/24/2025 and was injected 0.4 mg of Lexiscan intravenously. Within a minute of this injection 35 mC i of sestamibi was given intravenously. Images were obtained using the S PerceptiMedT gamma camera interlaced with the gating device. [...] 05/26/2025 04:04 PM EDT RP Workstatio n: [id number] Dictated By: Mao Nathan MD Signed By: <Electronically signed by Mao Nathan MD in OV> 05/26/25 1604 DD/ 1000 TD/TT: 05/25/25 0815 Foot Doctor: Basic Metabolic Panel Reviewed date:08/08/2025 12:46:58 PM Interpretation: Performing Lab:[facility], [address] [place] [phone] Notes/Report: Sodium 142 135-145 mmol/L Potassium 4.2 3.3-5.1 mmol/L Chloride 109 96-108 mmol/L Carbon Dioxide 25 22-29 mmol/L Anion Gap 12 12-20 Blood Urea Nitrogen 13 9-16 mg/dL Creatinine 0.85 0.5-1.4 mg/dL Estimated Glomerular Filt Rate > 60 Chronic Kidney Disease: Estimated GFR < 60 mL/min/1.73m2 Severe Kidney Disease: Estimated GFR < 15 mL/min/1.73m2 Glucose Random 102 60-115 mg/dL Calcium 8.7 8.4-10.2 mg/dL Comprehensive Met. Panel Reviewed date:08/12/2025 12:41:20 PM Interpretation: Performing Lab:[facility], [address] [place] [phone] Notes/Report: Sodium 144 135-145 mmol/L Potassium 4.1 3.3-5.1 mmol/L Chloride 110 96-108 mmol/L Carbon Dioxide 26 22-29 mmol/L Anion Gap 12 12-20 Blood Urea Nitrogen 13 9-16 mg/dL Creatinine 0.90 0.5-1.4 mg/dL Estimated Glomerular Filt Rate > 60 Chronic Kidney Disease: Estimated GFR < 60 mL/min/1.73m2 Severe Kidney Disease: Estimated GFR < 15 mL/min/1.73m2 Glucose Random 87 60-115 mg/dL Calcium 8.8 8.4-10.2 mg/dL Bilirubin Total 0.4 0.0-1.0 mg/dL Aspartate Amino Transferase 24 5-37 U/L Alanine Aminotransferase 20 0-40 U/L Total Protein 6.5 6.5-8.0 g/dL Albumin Level 3.7 3.5-5.0 g/dL Alkaline Phosphatase 69 39-117 U/L Reason For Referral Reason I45.[address] [place] [facility] [place] 1 RBBB (I45.10) Referral Organization Jonas Evans MD Referring Provider First Name Jonas Referring Provider Last Name Nathan Referring Provider Speciality Internal M edicine Referred Provider ESTUARDO NATHAN Referred Provider Specialty Cardiology General Notes Carine Lopez 0 05/27/2025 08:34:35 AM >referral in faxed, Spoke with Sayra at Dr. Jarvis office, She will work on getting him in for an appt ., Carine Lopez 05/27/2025 09:22:47 AM > was told by office patient is aware of appt Referral Priority Routine Referral Appointment Date 05/31/2025 Medications Medication SIG (Take, Route, Frequency, Duration) Notes Start Date End Date Status Atorvastatin Calcium 40 MG TAKE 1 TABLET BY MOUTH EVERY DAY Active hydroCHLOROthiazide 25 MG 1 tablet in th e morning Orally Once a day 06/02/2025 Active Immunizations Vaccine Route Administration Date Status [...] Problem Status W/U Status Risk Notes Problem 54751017 Lymphocytosis (D72.820) Active confirm ed Problem 088008693 Tubular adenoma of colon (D12.6) Active confirmed Problem 51569470 Essential hypert ension (I10) Active confirmed Problem 5521865 Prediabetes (R73.09) Active confirmed Problem 15692819 RBBB (I45.10) Active confirmed Problem 041431764 History of prost ate cancer (Z85.46) Active confirmed Problem 998907575 Rising PSA level (R97.20) Active confirmed Problem 827365071 Pure hypercholesterolemia (E78.00) Active confirmed Vital Signs Blood pressure diastolic 94 mm Hg 08/18/2025 saundra ght is up 14 poiunds since 05-23-25 Height 69.5 in 08/18/2025 weight is up 14 poiunds since 05-23-25 Blood pressure systolic 178 mm Hg 08/18/2025 weig ht is up 14 poiunds since 05-23-25 Weight 197 lbs 08/18/2025 weight is up 14 poiunds since 05-23-25 BMI 28.67 kg/m2 08/18/2025 weight is up 14 poiunds since 05-23-25 Encounters Encounter Location Date Provider Diagnosis Jonas Evans MD [address] [place] [id number] 02/04/2025 Jonas Evans Prediabetes R73.09 a nd Pure hypercholesterolemia E78.00 Jonas Evans MD [address] [place] [id number] 08/12/2025 Jonas Evans Essential hypertensi on I10 ; Prediabetes R73.09 ; Pure hypercholesterolemia E78.00 and Rising PSA level R97.20 Jonas Evans MD [address] [place] [id number] 02/10/2025 Jonas Evans Essential hypertensi on I10 ; Prediabetes R73.09 and Pure hypercholesterolemia E78.00 Jonas Evans MD [address] [place] [id number] 05/20/2025 Jonas Evans Hypotension due to d rugs I95.2 and Abnormal weight loss R63.4 Jonas Evans MD [address] [place] [id number] 05/23/2025 Jonas Evans RBBB I45.10 ; Hypote nsion due to drugs I95.2 and Shortness of breath R06.02 Jonas Evans MD [address] [place] [id number] 06/02/2025 Jonas Evans Leg edema R60.0 Jonas Evans MD [address] [place] [id number] 08/18/2025 Jonas Evans Adult general medica l exam Z00.00 ; Essential hypertension I10 ; Pure hypercholesterolemia E78.00 ; Lymphocytosis D72.820 ; History of prostate cancer Z85.46 and Family history of aneurysm Z82.49 Jonas Evans MD [address] [place] [id number] 04/26/2025 Jonas Evans MD [address] [place] [id number] 05/20/2025 Jonas Evans Assessments Encounter Date Diagnosis (ICD Code) Assessment Notes Treatment Notes Treatment Clinical Notes Section Notes 02/04/2025 Prediabetes (ICD-10 - R73.09) 08/12/2025 Essential hypertension (ICD-10 - I10) 02/10/2025 Essential hypertension (ICD-10 - I10) good [...] hctz, patient verbalizedunderstnading of medication and directions 08/18/2025 Adult general medica l exam (ICD-10 - Z00.00) labs reviewed and discussed with patient, [place] [facility] [place] for [place] 08/18/2025 Essential hypertension (ICD-10 - I10) running a little high but chacks at home and is doing well, will continue current regiment and will continue to monitor 02/04/2025 Pure hypercholesterolemia (ICD-10 - E78.00) 08/12/2025 Prediabetes (ICD-10 - R73.09) 02/10/2025 Prediabetes (ICD-10 - R73.09) well controlled, no need for medication at thios time, will continue to monitor 05/23/2025 Shortness of breath (ICD-10 - R06.02) will get the stress test as the preop cancelled the surgery until we get the stress/ [place] [facility]24[place] at 10am 08/18/2025 Pure hypercholesterolemia (ICD-10 - E78.00) well controlled, will continue current regiment 08/12/2025 Pure hypercholesterolemia (ICD-10 - E78.00) 02/10/2025 Pure hypercholesterolemia (ICD-10 - E78.00) doing well on meds, will continue current regiment 08/18/2025 Lymphocytosis (ICD-1 0 - D72.820) stable, will continue to monitor 08/12/2025 Rising PSA level (ICD-10 - R97.20) 08/18/2025 History of prostate cancer (ICD-10 - Z85.46) no recurrence 08/18/2025 Family history of aneurysm (ICD-10 - Z82.49) MRA order faxed to [facility] , awaiting diagnostic testing 05/20/2025 Other the shortness of breath doesn t sound cardiac. seems like he just gets weak from the hypotension. will recheck in 3 days Plan Of Treatment Pending Test Test Name Order Date Electrocardiogram (EKG) 03/05/2019 Electrocardiogram (EKG) 01/11/2016 Electrocardiogram (EKG) 02/09/2024 Electrocardiogram (EKG) 02/07/2017 Electrocardiogram (EKG) 02/19/2018 MRA BRAIN NO CONTRAST 08/18/2025 MRA BRAIN NO CONTRAST 03/05/2019 Comprehensive [place]. Panel Fast CA lexiscan stress w fito 05/23/2025 Next Appt Details Provider Name:Jonas arias, 11/18/2025 01:45:00 PM, [address], [address], [place], [place], [id number], Provider Name:Jonas Ramsay ier, 02/09/2026 07:30:00 AM, [address], [address], [place], [id number], Provider Name:Jonas Ramsay ier, 02/16/2026 09:00:00 AM, [address] [facility], [address], [place], [id number], Provider Name:Jonas Ramsay ier, 08/15/2026 07:15:00 AM, [address] [facility], [address], [place], [phone], Provider Name:Jonas Ramsay ier, 08/22/2026 10:30:00 AM, [address] [place] [address], [address], [place], [id number], Insurance Providers Payer Name Payer Address Payer Phone Subscriber Number Group Number Insured Name Patient Relationship to Insured Coverage Start Date Coverage End Date [facility] [address] [place], [place] [id number] Reji Tucker Self - patient is the insured Medical (General) History Medical History History ICD Code 10/30/12 - refused flu shot discussed colonoscopy schedu led 2014; colonoscopy 12/27/15 - repeat 5 yrs (Dr. Sher)(2020) colonoscopy 2021 repeat in 5 years: 03/20/22 colonoscopy repeat 5 yrs ( 2026) Lymphocytosis Xanthelasma of eyelid
--- OUTSIDE RECORDS SUMMARY | 2025-09-12 08:12 | XMS_ITS | Encounter Summary ---
Author Organization [facility] Address [address] [place] [address] [place] [address] Phone Care Team Providers Care Furnace Keeper Name Role Phone Jonas Evans MD Primary Care Provider Imelda Alvarenga MD, MPH Unavailable [phone] José Mckoy MD Unavailable [phone] Mak Bautista MD Unavailable [phone] Encounter Details Date Type Department Care Team (Late st Contact Info) Description 01/19/2024 Ancillary Orders Outside Imaging Mak Bautista MD [address] [place] [phone] [email or web address] Social History Tobacco Use Types [...] on filedocumented in this encounter Care Teams Furnace Keeper Relationship Specialty Start Date End Date Jonas Evans MD [address] [place] [address] [place] [address] PCP - General Internal Medicine 12/25/23 Imelda Alvarenga MD, MPH [address] [place] [address] [address] [place] [address] [email or web address] Oncology 01/15/24 José Mckoy MD [address] [place] [address] Urology 01/15/24 Mak Bautista MD [address] [place] [address] [email or web address] 01/15/24 documented as of this encounter Additional Source Comments The information contained in this document represents components of the legal health record. It is not the complete legal health record.[facility]
--- OUTSIDE RECORDS SUMMARY | 2025-09-12 08:12 | XMS_ITS | Encounter Summary ---
Author Organization [facility] Address [address] [place] [address] [place] [address] Phone Care Team Providers Care Senior Oracle Applications Developer Name Role Phone Jonas Evans MD Primary Care Provider Imelda Alvarenga MD, MPH Unavailable [phone] José Mckoy MD Unavailable [phone] Mak Bautista MD Unavailable [phone] Encounter Details Date Type Department Care Team (Late st Contact Info) Description 01/19/2024 Ancillary Orders Outside Imaging Mak Bautista MD [address] [place] [id number] [email or web address] Social History Tobacco Use Types Packs/Day Years [...] on filedocumented in this encounter Care Teams Senior Oracle Applications Developer Relationship Specialty Start Date End Date Jonas Evans MD [address] [place] [address] [place] [address] PCP - General Internal Medicine 12/25/23 Imelda Alvarenga MD, MPH [address] [place] [address] [address] [place] [address] [email or web address] [email or web address] Oncology 01/15/24 José Mckoy MD [address] [place] [address] Urology 01/15/24 Mak Bautista MD [address] [place] [address] [email or web address] Medical Oncology 01/15/24 documented as of this encounter Additional Source Comments The information contained in this document represents components of the legal health record. It is not the complete legal health record.[facility]
[2025-09-12 08:24] VITALS: BP 148/72; PULSE 71; BMI 30.2
--- NOTE | 2025-09-12 08:24 | A.OFFVIS_ITS ---
Vital Signs 09/12/25 08:24 Height 5 ft 8 in Weight 198 lb 6.656 oz BMI 30.2 BP 148/72 H Blood Pressure Location Rt brachial Position Sitting Pulse 71 Pulse Source Pulse Oximeter Intake Visit Reasons: 3 mth fu after CTA/ echo Spooling Supervisor Required: No Allergies No Known Allergies Allergy (Verified 09/12/25 08:27) Medication List - Last Reconciled 09/12/25 by ASHLEY Greene atorvastatin 40 mg PO DAILY HPI HPI 3 mth fu after CTA/ echo: Details: The patient is a 70 year old male presenting for a cardiology follow-up after a recent echocardiogram and CTA of coronary arteries. He was initially undergoing a preoperative evaluation for hip surgery when he was noted to have hypotension with a blood pressure of 88/48 mmHg. This occurred after a significant weight loss of 25-30 pounds while he was on valsartan. His symptoms at the time included dizziness, weakness, and lack of energy. He stopped the valsartan about three months ago and his hip surgery was canceled. A cardiac workup was initiated, which included a nuclear stress test on 05/24/2025 that showed no clear evidence of ischemia, an ejection fraction of 43% at rest and 47% with stress, and a fixed inferior defect of unclear significance. An EKG on 05/31/2025 showed sinus rhythm with a short MI interval, right bundle branch block, and left posterior fascicular block. An echocardiogram on 07/18/2025 revealed an EF of 50-55%, mild left ventricular hypertrophy with a pseudonormal filling pattern, and a mildly dilated ascending aorta of 3.9 cm. A coronary CTA on 09/07/2025 showed mild stenosis (25-49%) in the LAD due to calcified plaque. BP is elevated today at 148/72 and when rechec ked by me 166/68. He reports that he has been feeling well overall. No chest pains, shortness of breath, heart palpitations, lightheadedness. BP was checked by PCP last month and it was normal. 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 He has a history of being overweight, weighing 270 lbs after high school, and is now approximately 198 lbs. His current medications include atorvastatin 40 mg daily. He has a BP cuff at home and can monitor his BP readings. [facility] Medical History BPH (benign prostatic hyperplasia) Prostate cancer HLD (hyperlipidemia) HTN (hypertension) Surgical History Hx of prostatectomy Hx of prostate biopsy H/O colonoscopy Family History Mother CHF (congestive heart failure) Father No problems noted. Social History Household Members: Spouse Are you a primary inpatient care manager rn to a significant other at home: No Do you presently have visiting nurse or other home services: No Alcohol intake: current Alcohol intake frequency: holidays/special occasions only Patient Tobacco Use Status: Never used Tobacco Review of Systems Const All systems reviewed & are unremarkable except as noted in HPI and below ENT Denies dizziness Card Denies chest pain, Denies chest pain at rest, Denies chest pain with activity, Denies rapid heart rate, Denies pedal edema, Denies edema, Denies leg edema, Denies lightheadedness, Denies palpitations, Denies dyspnea, Denies dyspnea on exertion and Denies orthopnea Resp Denies cough, Denies dyspnea and Denies dyspnea on exertion GI Denies hematochezia and Denies change in stool character Musc Denies abnormal gait, Denies limited range of motion, Denies muscle cramps, Denies muscle weakness, Denies numbness, Denies radiating pain into limb, Denies stiffness and Denies tingling Neuro Denies abnormal gait, Denies dizziness, Denies numbness and Denies tingling Endo Denies palpitations Physical Exam Vital Signs: Last Vital Signs Pulse 71 09/12/25 08:24 BP 148/72 H 09/12/25 08:24 BMI result Body Mass Index 30.2 Const General: cooperative, healthy appearing, comfortable and no acute distress Orientation/consciousness: patient oriented x3 Neck Neck: Yes normal visual inspection Resp Effort & Inspection: normal respiratory effort Auscultation: clear to auscultation bilaterally, no crackles, no rales, no rhonchi and no wheezes Cardio Rate: regular rate Rhythm: regular rhythm Heart sounds: S1 normal heart sound present, S2 normal heart sound present, no gallops, no murmurs and no rubs Neuro General: patient oriented x3 Extrem General: Yes normal to inspection, No no pedal edema and No calf tenderness Psych Appearance: grossly normal Mental Status: mental status grossly normal Speech and movement: Normal speech and movement present Assessment & Plan Assessment & Plan (1) HTN (hypertension): Code(s): I10 - Essential (primary) hypertension Category: Medical Plan: Blood pressure goal less than 130/80. Recent hypotension on valsartan 320/hydrochlorothiazide 25 mg daily which was then discontinued. Blood pressure now elevated at 148/72 and recheck done by me 166/78. Will restart valsartan 80 mg daily. Office blood pressure check in 2 weeks. Instructed on periodic home blood pressure checks. (2) Abnormal myocardial perfusion study: Code(s): R94.39 - Abnormal result of other cardiovascular function study Category: Medical Plan: Recent nuclear stress test showing no clear evidence of ischemia however fixed appearing inferior defect possibly artifact less likely infarct. This was followed by CTA of the coronary arteries done 09/07/2025 showing mild stenosis 25-49% along the LAD at several segments due to calcified plaque. Diagnosis of nonobstructive coronary disease reviewed with him. Will have him start on aspirin 81 mg daily. Continue atorvastatin with ideal LDL goal less than 70. Signs and symptoms of angina reviewed. Cardiology follow-up 6 months, sooner if needed (3) Coronary arteriosclerosis: Comment: CTA of the coronary arteries 09/07/2025 mild stenosis, 25-49% along the LAD at several segments due to calcified plaque. Code(s): I25.10 - Atherosclerotic heart disease of [place] coronary artery without angina pectoris Category: Medical Plan: Mild nonobstructive coronary disease. (4) Bifascicular block: Code(s): I45.2 - Bifascicular block Category: Medical Plan: EKG shows evidence of bifascicular block. No significant coronary artery disease as above. (5) Preoperative cardiovascular examination: Code(s): Z01.810 - Encounter for preprocedural cardiovascular examination Category: Medical Plan: Preop for hip surgery with Dr. Medrano, no date yet. He may proceed with low to intermediate cardiac risk. Aspirin can be held as needed for the procedure and restart when cleared by surgeon to do so. Call/consult Cardiology if needed. Plan I informed the patient that his overall cardiac testing looks good. I reviewed the echocardiogram results, explaining that his heart is strong, but has some mild wall thickening, which can be related to his history of being overweight and having high blood pressure. I discussed the incidental finding of a mildly dilated aorta, reassuring him it is not concerning now and will be rechecked with an echocardiogram in about two years. I explained that the CTA scan of his heart arteries showed some mild calcified plaque, but that it is not significantly blocking blood flow. To manage this, I recommended continuing his atorvastatin with a goal for low cholesterol to stabilize the existing plaque, and to start a daily baby aspirin to make the blood less likely to clot. We discussed his elevated blood pressure in the clinic today and the importance of controlling it to keep his heart healthy. I will prescribe a low starting dose of valsartan, and he will monitor his pressures at home. I educated him on potential cardiac symptoms to watch for, such as chest discomfort or shortness of breath with activity. I cleared him for his planned hip surgery, assessing his risk as low to intermediate. We will have him follow up in the office for a blood pressure check and a routine cardiology visit in six months, or sooner if needed. Medications: New valsartan 80 mg PO DAILY 30 tabs 5RF aspirin 81 mg PO DAILY 90 tabs 3RF Patient Instructions: - Start taking the new low-dose valsartan prescription for your blood pressure. - Check your blood pressure at home and try to keep it below 130/80. - Continue taking your cholesterol medication, atorvastatin 40 mg, every day. - Start taking one low-dose (baby) aspirin every day. - Continue to stay physically active and try to limit salt in your diet. - You are cleared from a heart perspective to have your hip surgery. You can call your surgeon to get it back on the schedule. - Pay attention to any new chest discomfort (pain, pressure, heaviness, squeezing) or shortness of breath that happens when you are active, as this could be a sign your arteries are getting more narrow. - Please schedule a follow-up appointment in our office for a blood pressure check, and another visit in six months for a full cardiology follow-up. Patient was informed and verbally consented to the use of an ambient scribe for clinic note documentation during this visit. Visit time spent on chart review, interview, assessment, orders, documentation. Coding Level of Care Code Est Pt Level 4 (83657) Add On Problem Visit Only Diagnoses HTN (hypertension) I10 Abnormal myocardial perfusion study R94.39 Coronary arteriosclerosis I25.10 Bifascicular block I45.2 Preoperative cardiovascular examination Z01.810 Time Spent (min) 32
== END 2025-09-12 08:55 | disposition home or self-care (01) ==
PROVIDERS: Visit Provider Nurse Practitioner Family
DX: I10 Essential (primary) hypertension (principal); R94.39 Abnormal result of other cardiovascular function study; I25.10 Atherosclerotic heart disease of native coronary artery without angina pectoris; I45.2 Bifascicular block; Z01.810 Encounter for preprocedural cardiovascular examination
CPT/HCPCS: 99214